=== PATIENT | female | born 1955 | race Caucasian/White ===

== ENCOUNTER 2017-10-20 17:46 | Emergency (ER) | payer OTHER, BC, SELFPAY ==
[2017-10-20 18:04] VITALS: BP 122/82; PULSE 82; RESP 16; TEMP 36.9; O2SAT 94
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
[2017-10-20 19:58] VITALS: BP 142/91; PULSE 72; RESP 16; O2SAT 97
== END 2017-10-20 19:58 | disposition home or self-care (01) ==
PROVIDERS: Emergency Provider Emergency Medicine; Family Provider Internal Medicine; PCP Internal Medicine
DX: S80.01XA Contusion of right knee, initial encounter (principal); S80.02XA Contusion of left knee, initial encounter; V49.9XXA Car occupant (driver) (passenger) injured in unspecified traffic accident, initial encounter
CPT/HCPCS: 99282

== ENCOUNTER → 2017-12-28 13:56 | Outpatient (CLI) | payer BC, SELFPAY ==
--- NOTE | 2017-12-28 14:05 | DI.MG.S_ITS ---
BILATERAL DIGITAL DIAGNOSTIC MAMMOGRAM 3D/2D: 12/28/2017 CLINICAL: Right Breast Lump. Baseline exam. No prior exams were available for comparison. There are scattered fibroglandular elements in both breasts. There are benign oil cysts in the left breast that correlate with palpable abnormalities. There are multiple oil cysts in the right breast superior lateral quadrant anterior depth. These likely correlate as palpated. There is a round mass in the left breast central to the nipple middle depth. No other significant masses or calcifications are seen in either breast. IMPRESSION: INCOMPLETE: NEEDS ADDITIONAL IMAGING EVALUATION The multiple oil cysts in the right breast superior lateral quadrant anterior depth are indeterminate. An ultrasound is recommended. The round mass in the left breast central to the nipple middle depth is indeterminate. An ultrasound is recommended. This exam was interpreted at Station ID: [id number]. NOTE: For mammograms, a report in lay terms will be sent to the patient. Approximately 15% of breast malignancies will not be visualized mammographically. In the management of a palpable breast mass, a negative mammogram must not discourage biopsy of a clinically suspicious lesion. Electronically Signed By: Tami gómez/:12/28/2017 14:52:48 letter sent: Additional Imaging Needed ACR BI-RADS Category 0: Incomplete [id number]
--- NOTE | 2017-12-28 14:05 | DI.US.S_ITS ---
ULTRASOUND OF RIGHT BREAST: 12/28/2017 CLINICAL: Palpable right breast lump. times 3. Comparison is made to exam dated: 12/28/2017 [facility]. Color flow and real-time ultrasound of the right breast were performed on the areas of interest. Zepeda scale images of the real-time examination were reviewed. There is 1.4 cm x 0.8 cm x 1 cm cyst in the right breast at 1 o'clock middle depth. There is internal echogenic avascular debris within this cyst. This correlates as palpated. Color flow imaging demonstrates that there is no vascularity present. There also is a 0.5 cm x 0.4 cm cyst in the right breast at 12 o'clock anterior depth. This cyst is anechoic with posterior acoustic enhancement. This correlates as palpated. Additionally, there is a 0.8 cm x 0.7 cm x 0.9 cm cyst in the right breast at 10 o'clock middle depth. This cyst is anechoic with posterior acoustic enhancement. This correlates as palpated. IMPRESSION: PROBABLY BENIGN The 1.4 cm x 0.8 cm x 1 cm cyst in the right breast at 1 o'clock middle depth is consistent with a complicated cyst and is probably benign. A follow-up ultrasound in 6 months is recommended to demonstrate stability. The 0.5 cm x 0.4 cm cyst in the right breast at 12 o'clock anterior depth is consistent with a simple cyst and is benign. The 0.8 cm x 0.7 cm x 0.9 cm cyst in the right breast at 10 o'clock middle depth is consistent with a simple cyst and is benign. This exam was interpreted at Station ID: [id number]. Electronically Signed By: Tami gómez/:12/28/2017 16:33:46 letter sent: Followup Recommended Ultrasound BI-RADS: 3 Probably benign
--- NOTE | 2017-12-28 15:47 | DI.US.S_ITS ---
ULTRASOUND OF LEFT BREAST: 12/28/2017 CLINICAL: Patient returns for additional imaging over a suspected mass in the left breast. Comparison is made [facility] Color flow ultrasound of the left breast was performed on the areas of interest. Zepeda scale images of the real-time examination were reviewed. There is a 1 cm x 0.7 cm x 0.9 cm oval cyst in the left breast at 3 o'clock middle depth. This oval cyst is anechoic with posterior acoustic enhancement. This correlates with mammography findings. Color flow imaging demonstrates that there is no vascularity present. IMPRESSION: BENIGN There is no sonographic evidence of malignancy. The 1 cm x 0.7 cm x 0.9 cm oval cyst in the left breast is consistent with a simple cyst and is benign. A 1 year screening mammogram is recommended. This exam was interpreted at Station ID: [id number]. Electronically Signed By: Tami Prince M.D. lk/:12/28/2017 16:44:18 letter sent: Normal Exam Ultrasound BI-RADS: 2 Benign
== END ==
PROVIDERS: Family Provider Internal Medicine; PCP Internal Medicine; Visit Provider Registered Nurse
DX: R92.8 Other abnormal and inconclusive findings on diagnostic imaging of breast (principal); N60.01 Solitary cyst of right breast; N60.02 Solitary cyst of left breast
CPT/HCPCS: 76642; 77066; G0279

== ENCOUNTER 2018-06-13 15:36 | Observation (INO) | payer BC, SELFPAY ==
[2018-06-13] VITALS (8 sets, daily range): BP systolic 143–159; BP diastolic 73–99; PULSE 58–71; RESP 12–22; TEMP 36.6–36.8; O2SAT 93–99; BMI 34.9
--- NOTE | 2018-06-13 15:45 | DI.RAD.S_ITS ---
PROCEDURE: XR CHEST 1V INDICATIONS: chest pain, soa TECHNIQUE: One view of the chest was acquired. COMPARISON: None. FINDINGS: Surgical changes and devices: None. Lungs and pleura: Lungs are clear. No pleural effusions or pneumothorax. Mediastinum: Mediastinal contours appear normal. Heart size is normal. Bones and chest wall: No suspicious bony lesions. Overlying soft tissues appear unremarkable. IMPRESSION: No acute process. Dictated by: Rangel Duncan M.D. on 06/13/2018 at 16:10 Approved by: Rangel Duncan M.D. on 06/13/2018 at 16:11
[2018-06-13 16:39] LABS: Add Manual Diff / Slide Review NO; Basophils Absolute Auto 0 /uL (0-100); Basophils Percent Auto 0.5 % (0-2); Eosinophils Absolute Auto 100 /uL (0-450); Eosinophils Percent Auto 2.3 % (2-4); Hematocrit 40.4 % (36-46); Hemoglobin 13.5 g/dL (12.0-16.0); Lymphocytes Absolute Auto 1400 /uL (1100-4500); Lymphocytes Percent Auto 24.7 % (25-40); Mean Corpuscular HGB Conc 33.3 % (30-36); Mean Corpuscular Hemoglobin 29.4 PG (26-34); Mean Corpuscular Volume 88.3 fL (80-100); Monocytes Absolute Auto 600 /uL (0-900); Monocytes Percent Auto 10.6 % (3-14); Neutrophils Absolute Auto 3500 /uL (1500-7000); Neutrophils Percent Auto 61.9 % (50-75); Platelet Count 243 X10^3/uL (150-400); Red Blood Cell Count 4.58 X10^6/uL (4.0-5.2); White Blood Cell Count 5.7 X10^3/uL (4.5-11.0)
[2018-06-13 16:47] LABS: Alanine Aminotransferase 15 IU/L (9-52); Albumin 4.3 g/dL (3.5-5.0); Albumin Globulin Ratio 1.3 (1.0-2.8); Alkaline Phosphatase 45 U/L (38-126); Aspartate Aminotransferase 23 IU/L (14-36); BUN Creatinine Ratio 17.8 (6-22); Bilirubin Total 0.3 mg/dL (0.2-1.3); Blood Urea Nitrogen 16 mg/dL (7-17); Calcium 9.4 mg/dL (8.4-10.2); Carbon Dioxide 28 mmol/L (22-32); Chloride 101 mmol/L (98-107); Creatine Kinase 62 U/L (30-135); Estimated Glomerular Filt Rate > 60.0 mL/min (>60); Globulin 3.2 g/dL (1.7-4.1); Glucose 92 mg/dL (80-110); HEMOLYSIS < 15 (0-50); Sodium 139 mmol/L (137-145); Total Protein 7.5 g/dL (6.3-8.2)
[2018-06-13 16:59] LABS: Troponin I < 0.012 ng/mL (0.01-0.034)
--- NOTE | 2018-06-13 17:41 | DI.US.S_ITS ---
PROCEDURE: US PERIPH VENOUS LOW EXTREM BI INDICATIONS: swelling legs, sometimes, lots of risk factors TECHNIQUE: Real-time imaging, as well as color and pulse Doppler interrogation, were performed of the deep veins of both legs from the inguinal ligament to the popliteal fossa. COMPARISON: [facility], US, US BREAST LT LIMITED, 12/28/2017, 15:29. [facility], , US BREAST RT LIMITED, 12/28/2017, 15:09. [facility], , PELVIC COMPLETE, 04/07/2012, 11:10. [facility], , ABDOMEN COMPLETE, 04/07/2012, 10:54. FINDINGS: Right: The common femoral, femoral and popliteal veins are normally compressible, and free of intraluminal thrombus. Color and pulse Doppler demonstrate intravascular flow. There is normal augmentation response to distal compression maneuver. Left: The common femoral, femoral and popliteal veins are normally compressible, and free of intraluminal thrombus. Color and pulse Doppler demonstrate intravascular flow. There is normal augmentation response to distal compression maneuver. IMPRESSION: No ultrasound evidence of deep venous thrombosis of the bilateral lower extremities. Dictated by: Curtis Conte M.D. on 06/13/2018 at 19:34 Approved by: Curtis Conte M.D. on 06/13/2018 at 19:35
--- NOTE | 2018-06-13 17:47 | ED.CHESTPAIN ---
HPI - Chest Pain General Chief Complaint: Chest Pain Stated Complaint: LEFT SIDED SHOULDER PAIN SOB Time Seen by Provider: 06/13/18 16:43 Source: patient and family (daughter on the phone) Mode of arrival: ambulatory Limitations: no limitations History of Present Illness HPI narrative: This is a 63-year-old female comes emergency department with complaint of shortness of breath patient states that she has been increasingly dyspneic since July. She states that initially it was just intermittent with exertion but has become more constant. Sometimes even when she is sitting she has also noticed some discomfort in her chest and left shoulder. She states that it has been going on for about 3 days. It has also been intermittent. She has been sort of tired. She states the discomforts sort of central and radiates towards her back. She has had a little bit of fever and cold feeling and sweatiness occasionally. She has been a little nauseated with these episodes. She denies any vomiting. She has not had any issues with bowel movements. She has known interstitial cystitis but no new changes. She did have some swelling in the right ankle which has a little bit of injury and she has been seeing PT. She states she has a bone spur on that foot. 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 She also takes quite a bit of pain medication. She states this is for interstitial cystitis. She is on estrogen. Patient has had a hysterectomy in the past she denies any other surgeries. Her mother at age 67 of coronary artery disease, her dad had issues with alcohol but he also had some blood clots at some point. She has 2 siblings but does not know much about her medical history other than her brother has issues with drug abuse. Her daughter has been diagnosed with protein C deficiency. Patient sees Dr. Tejeda for her primary care she does not smoke any tobacco. Patient has been asymptomatic without any chest pain/shortness of breath since arrival. Related Data Home Medications Medication Instructions Recorded Confirmed omeprazole 20 mg PO DAILY #0 07/31/12 06/13/18 Fish Oil 1 cap PO DAILY 06/13/18 06/13/18 Stool Softener 1 cap PO QAM 06/13/18 06/13/18 Vitamin B 1 tab PO DAILY 06/13/18 06/13/18 Vitamin D3 1 cap PO DAILY 06/13/18 06/13/18 [id number] 1 tab PO QAM 06/13/18 06/13/18 [Excedrin Extra Strength] estradiol [Estrace] 1 mg PO DAILY 06/13/18 06/13/18 multivitamin 1 tab PO DAILY 06/13/18 06/13/18 trazodone 200 mg PO BEDTIME 06/13/18 06/13/18 Previous Rx's Medication Instructions Recorded hydromorphone 4 mg tablet 8 mg PO Q6H #240 tab 05/31/18 citalopram 10 mg tablet 10 mg PO DAILY #90 tab 06/13/18 Allergies Allergy/AdvReac Type Severity Reaction Status Date / Time tramadol [TRAMADOL] Allergy Severe bad Verified 05/31/18 10:58 headaches ketorolac [KETOROLAC] Allergy Mild redness at Verified 05/31/18 10:58 injection site Review of Systems Review of Systems ROS Unobtainable: All systems reviewed & are unremarkable except as noted in HPI and below Constitutional Denies chills, Reports fatigue, Reports fever(s) (Feels hot), Denies lethargy, Reports malaise and Denies weakness ENT Ears, Nose, Mouth, and Throat: Denies nasal discharge Cardiovascular Reports chest pain, Reports chest pain with activity, Denies syncope, Denies rapid heart rate, Denies irregular heart rhythm, Reports leg edema, Denies lightheadedness, Reports radiating jaw, neck or arm pain, Denies palpitations, Reports dyspnea and Reports dyspnea on exertion Respiratory Denies change in phlegm color, Denies chest congestion, Denies cough, Denies hemoptysis, Denies pain on inspiration, Denies pain with cough, Reports dyspnea, Reports dyspnea on exertion and Denies wheezing Gastrointestinal Gastrointestinal: Denies abdominal pain, Denies change in bowel habits, Denies diarrhea, Reports nausea and Denies vomiting Genitourinary Reports other (interstitial cystitis) Neurologic Denies syncope and Denies weakness Endocrine Reports fatigue and Denies palpitations Allergic/Immunologic Denies wheezing [facility] Medical History Frequent UTI (Chronic 1991) Rosacea (Chronic ~1989) Stress headaches (Chronic) Tinnitus (Chronic 2015) Hearing loss (Resolved 2015) History of heavy periods (Resolved 1968) Interstitial cystitis (Resolved 1991) Oral cancer (Resolved 2015) Ovarian cyst (Resolved 1981) Painful menstrual periods (Resolved 1968) Plantar warts (Resolved 1974) Shoulder pain (Resolved 1999) Squamous cell carcinoma of head and neck (Resolved 2014) Surgical History Anesthesia (Resolved) Status post hysterectomy (Resolved 1993) Status post urological surgery (Resolved 2012) Family History (Updated 08/30/17 @ 16:59 by Lesley Frias) Father Hypertension Alcoholism Throat cancer Diabetes mellitus Mother Heart disease Hypertension Emphysema of lung Son Pneumonia Heroin addiction Social History Smoking Status: Former smoker Family History (Updated 08/30/17 @ 16:59 by Lesley Frias) Father Hypertension Alcoholism Throat cancer Diabetes mellitus Mother Heart disease Hypertension Emphysema of lung Son Pneumonia Heroin addiction Social History Smoking Status: Former smoker Exam Narrative Exam Narrative: GENERAL: Alert and oriented x three, well nourished, well appearing female in no acute distress. HEENT: Head normocephalic, atraumatic, EOMI, pupils reactive, face symmetric, moist mucous membranes NECK: Supple, full range of motion CARDIOVASCULAR: Regular rate and rhythm without murmurs, rubs or gallops. RESPIRATORY: Breath sounds equal bilaterally, no wheezes rales or rhonchi. ABDOMEN: Soft, nontender. Normoactive bowel sounds all 4 quadrants. No guarding or rebound, rigidity, no mass : No CVA tenderness EXTREMITIES: Normal range of motion, no clubbing or edema. Neurovascularly intact NEUROLOGICAL: Cranial nerves II through XII grossly intact. Moving all extremities SKIN: Warm, dry, no petechiae, no rashes or lesions. Initial Vital Signs Initial Vital Signs: Vital Signs Temperature 97.9 F 06/13/18 15:40 Pulse Rate 62 06/13/18 15:40 Respiratory Rate 22 06/13/18 15:40 Blood Pressure 149/94 H 06/13/18 15:40 Pulse Oximetry 96 06/13/18 15:40 Scores HEART Score Heart Score history: Moderately Suspicious Heart Score EKG: Non-Specific repolarization disturbance Heart Score Age: 45-64 years old Heart Score risk factors: 1-2 risk factors Heart Score troponin: < or = to normal limit Heart Score Total: 4 Course Orders Ordered: ED Orders 06/13/18 15:45 XR chest 1V Stat 06/13/18 15:47 EKG-12 Lead Stat 06/13/18 16:15 Complete Blood Count AUTO DIFF Stat Comprehensive Metabolic Panel Stat D Dimer Stat Partial Thromboplastin Time Stat Prothrombin Time INR Stat Troponin & CK Cardiac Panel Stat 06/13/18 17:41 US periph venous low extrem bi Stat Discontinued Medications Enoxaparin Sodium (Lovenox) 80 mg 1 mg/kg (80 mg) SUBCUT NOW ONE Stop: 06/13/18 19:08 Last Admin: 06/13/18 19:27 Dose: 80 mg Vital Signs - 8 hr 06/13/18 15:40 06/13/18 16:15 06/13/18 17:00 Temperature 97.9 F Pulse Rate 62 58 L 60 Respiratory Rate 22 12 12 Blood Pressure 149/94 H Blood Pressure [Right Arm] 153/73 H 144/79 H Pulse Oximetry 96 93 95 06/13/18 18:00 Temperature Pulse Rate 68 Respiratory Rate 20 Blood Pressure Blood Pressure [Right Arm] 148/82 H Pulse Oximetry 99 MDM - Chest Pain Lab Data Attestation: I reviewed the patient's lab results. Result diagrams: 06/13/18 16:15 06/13/18 16:15 Lab Results 06/13/18 06/13/18 06/13/18 Range/Units 16:15 16:15 16:15 WBC 5.7 (4.5-11.0) X10^3/uL RBC 4.58 (4.0-5.2) X10^6/uL Hgb 13.5 (12.0-16.0) g/dL Hct 40.4 (36-46) % MCV 88.3 (80-100) fL MCH 29.4 (26-34) PG MCHC 33.3 (30-36) % RDW 13.0 (11.6-14.8) % Plt Count 243 (150-400) X10^3/uL Neut % (Auto) 61.9 (50-75) % Lymph % (Auto) 24.7 L (25-40) % Troup % (Auto) 10.6 (3-14) % Eos % (Auto) 2.3 (2-4) % Baso % (Auto) 0.5 (0-2) % Neut # (Auto) 3500 (7056-9830) /uL Lymph # (Auto) 1400 (3943-9685) /uL Troup # (Auto) 600 (0-900) /uL Eos # (Auto) 100 (0-450) /uL Baso # (Auto) 0 (0-100) /uL PT (10.1-12.7) SECONDS INR (0.9-1.3) APTT (26.4-36.2) SECONDS D-Dimer 221 (<230) ng/mL Sodium 139 (137-145) mmol/L Potassium 4.0 (3.4-5.1) mmol/L Chloride 101 (98-107) mmol/L Carbon Dioxide 28 (22-32) mmol/L BUN 16 (7-17) mg/dL Creatinine 0.90 (0.52-1.04) mg/dL Estimated GFR > 60.0 (>60) mL/min BUN/Creatinine Ratio 17.8 (6-22) Glucose 92 (80-110) mg/dL Calcium 9.4 (8.4-10.2) mg/dL Total Bilirubin 0.3 (0.2-1.3) mg/dL AST 23 (14-36) IU/L ALT 15 (9-52) IU/L Alkaline Phosphatase 45 (38-126) U/L Total Creatine Kinase 62 (30-135) U/L CK-MB (CK-2) TNP CK-MB (CK-2) Rel Index TNP Troponin I < 0.012 (0.01-0.034) ng/mL Total Protein 7.5 (6.3-8.2) g/dL Albumin 4.3 (3.5-5.0) g/dL Globulin 3.2 (1.7-4.1) g/dL Albumin/Globulin Ratio 1.3 (1.0-2.8) 06/13/18 Range/Units 16:15 WBC (4.5-11.0) X10^3/uL RBC (4.0-5.2) X10^6/uL Hgb (12.0-16.0) g/dL Hct (36-46) % MCV (80-100) fL MCH (26-34) PG MCHC (30-36) % RDW (11.6-14.8) % Plt Count (150-400) X10^3/uL Neut % (Auto) (50-75) % Lymph % (Auto) (25-40) % Troup % (Auto) (3-14) % Eos % (Auto) (2-4) % Baso % (Auto) (0-2) % Neut # (Auto) (2316-7402) /uL Lymph # (Auto) (7223-2781) /uL Troup # (Auto) (0-900) /uL Eos # (Auto) (0-450) /uL Baso # (Auto) (0-100) /uL PT 11.5 (10.1-12.7) SECONDS INR 1.0 (0.9-1.3) APTT 32 (26.4-36.2) SECONDS D-Dimer (<230) ng/mL Sodium (137-145) mmol/L Potassium (3.4-5.1) mmol/L Chloride (98-107) mmol/L Carbon Dioxide (22-32) mmol/L BUN (7-17) mg/dL Creatinine (0.52-1.04) mg/dL Estimated GFR (>60) mL/min BUN/Creatinine Ratio (6-22) Glucose (80-110) mg/dL Calcium (8.4-10.2) mg/dL Total Bilirubin (0.2-1.3) mg/dL AST (14-36) IU/L ALT (9-52) IU/L Alkaline Phosphatase (38-126) U/L Total Creatine Kinase (30-135) U/L CK-MB (CK-2) CK-MB (CK-2) Rel Index Troponin I (0.01-0.034) ng/mL Total Protein (6.3-8.2) g/dL Albumin (3.5-5.0) g/dL Globulin (1.7-4.1) g/dL Albumin/Globulin Ratio (1.0-2.8) Imaging Data Chest x-ray: Radiologist's impression: Oliver Shay J 63 F [address] [address] XRay Report Signed Patient: Oliver Shay#: [id number] : 8Acct:[id number] Age/Sex: 63 / FDate of Service: 06/13/18 Loc: ED Accession Number: [id number] Procedure: XR chest 1V Ordering Provider: Nora Alas D.O. PROCEDURE: XR CHEST 1V INDICATIONS: chest pain, soa TECHNIQUE: One view of the chest was acquired. COMPARISON: None. FINDINGS: Surgical changes and devices: None. Lungs and pleura: Lungs are clear. No pleural effusions or pneumothorax. Mediastinum: Mediastinal contours appear normal. Heart size is normal. Bones and chest wall: No suspicious bony lesions. Overlying soft tissues appear unremarkable. IMPRESSION: No acute process. Dictated by: Rangel Duncan M.D. on 06/13/2018 at 16:10 Approved by: Rangel Duncan M.D. on 06/13/2018 at 16:11 MDM Narrative Medical decision making narrative: Discussed with patient she does have an elevated heart score, she also has some risk factors for PE even though her D-dimer ultrasound of her lower extremities are negative. I discussed with patient about observation for chest pain, serial enzymes and potentially stress test. We also discussed going ahead and treating her for potential blood clot although this is less likely with her negative D-dimer and ultrasound of her lower extremities. Patient is open to this. We did discuss that hopefully CT scan would be available tomorrow. I spoke with the Sheila Contreras the [employer]NAGER, she is not comfortable treating with Lovenox and waiting for potential PE scan tomorrow and would like us to ship her to [facility] and return for imaging. We did discuss patient has been stable except for 1 episode of hypoxia in the department. She is happy to accept the patient after PE scan is performed. We did discuss I have elected to treat her with Lovenox at this time. Discussed with patient she is comfortable with this plan. I also spoke with Dr. Funes who is the night physician who would be present when patient returns and updated him on the plan as well as the nurse practitioner excepting him after PE scan is performed. We did discuss if she had a massive PE or saddle embolus then we may need to change direction and have patient treated elsewhere. Discharge Plan Departure Patient Disposition: Admitted as Observation Clinical Impression: Atypical chest pain, Dyspnea Referrals: Israel Dodge MD [Primary Care Provider] -
[2018-06-13 17:59] LABS: Prothrombin Time 11.5 SECONDS (10.1-12.7)
[2018-06-13 18:02] LABS: D Dimer 221 ng/mL (<230); PTT Partial Thromboplastin Tim 32 SECONDS (26.4-36.2)
[2018-06-13] MEDS: ENOXAPARIN 80 MG/0.8 ML SYRINGE SUBCUT (19:27)
--- NOTE | 2018-06-13 20:46 | PC.NURSE ---
Addendum entered by Yoko Hall R.N. 06/13/18 22:24: 2224 Patient back from [facility] with ambulance crew. Provider aware. Original Note: [facility] here to transport patient to [facility] for CT angio of chest. Gave report to VANDANA Sharpe from ambulance. Pt left department at 2049.
--- NOTE | 2018-06-13 21:03 | P.EN_ITS ---
Date Patient Seen: 06/13/18 Time Patient Seen: 19:01 Returning a call to the ED on 06/13/2018 at 7:[address] Alas in regard to patient Oliver Handley. It is being communicated by the ED physician the patient presented to the ED with shortness of breath. Shortness of breath set to be intermittent, with exertion and sometimes at rest as well. Symptoms initially noted in July of 2017, progressively worsening. In the past 3 days patient developed left shoulder discomfort. There is radiation to the back. Associated symptoms include nausea, but no vomiting. Physician reported that patient is receiving therapy for a bone spur in her left lower extremity. Also noted a history of squamous cell carcinoma in the left aspect of the neck for which she has received chemo and radiation in the past. No known history of high blood pressure, diabetes, depression, obesity or tobacco dependence. Patient noted to have underlying dyslipidemia. There is family history of heart disease (mother). Noted to have 2 siblings, 1 with polysubstance abuse problem and the other with little known history by the patient herself. Patient noted to be on estrogen and may have potentially had a remote history of thrombosis. This is being noted by the patient as blood clot in her stomach, but the physician noted that she was not entirely clear what patient was referring to. Labs noted to be unremarkable. Troponin was negative. EKG was negative. And chest x-ray was negative. Patient is set to be hemodynamically stable. Patient's daughter was noted to have protein C deficiency. Request is being made for admission for chest pain observation and potentially PE. I am being told that the CTA was not done in the ED as the imaging machine is not an operational order. It is expected to be up and running at noon on 06/14/2018. Concern expressed in regard to excepting patient without availability of proper imaging at hand and a stipulation that the the imaging machine will be up and running in 19 hours from now. I have discussed patient's HEART score w/ the physician, which at time of the conversation appeared to be elevated at least 2+ in lieu of her RF ie. age and risk factors. Despite normal EKG and normal initial troponin. Immediate acceptatnce of the patient was declined. Admission for further ob servation is conditional, ie patient will need CTA imaging of the chest to r/o PE. I am in agreement with the ED physician that patient does need to be admitted. She does have an elevated heart score and enough symptoms to warrant further work-up. However, risk of admission caries a significantly higher risk on patient mortality if new symptoms were to emerge at time of observation and patient were to experience a sudden hemodynamic collapse, given PE as a differential diagnosis. In absence of proper imaging there is a concern for significant delay in diagnosis and proper treatment. I have requested imaging to be done prior to patient being admitted to acute care unit for further observation. Physician noted an option of having patient transferred to [facility] for imaging and then return back for admission, this was accepted and agreed upon option. ED physician brought up prophylactic treatment of the patient with Lovenox. I have had no further, specific input to this decision-making step and left this decision up to the ED physician as I have not established a direct relationship with the patient and have not had an opportunity to evaluate the patient [id number] or review her records in detail. ED physician noted that she will proceed to anti-coagulate patient with Lovenox.
--- NOTE | 2018-06-13 22:42 | PM.HP.1 ---
History of Present Illness Date Patient Seen: 06/13/18 Time Patient Seen: 23:04 Chief complaint: LEFT SIDED SHOULDER PAIN SOB Narrative: The patient is an 83-year-old female with PMHx outlined below... PMHx: prior tobacco dependence (2-2.5 ppd for 18 yrs, quit 1991), urinary frequency (s/p InterStim implant), chronic interstitial cystitis, SCC of head & neck (dx 2014, s/p chemoradiation), oropharyngeal cancer (2015), left breast cyst (w/ no evidence of malignancy as of 12/28/2017, pending 1 yr f/u), chronic pain syndrome, fibromyalgia, opioid dependence, DM 2T (A1C 6.1 05/2017), HLD, depression, and insomnia. PSHx: hysterectomy w/ unilateral salpingo-oophorectomy (1993), InterStim system implant The patient presented to the ED on 06/13/2018 in the 1500 hour out of concern for left shoulder pain and shortness of breath. Symptoms noted 3 days prior to ED presentation (06/10/18). Associated symptoms include subjective report of increased temperature, profuse sweating, chest heaviness, swollen lymph nodes, joint pain (notes to be worse from baseline), nausea x3 days (no vomiting or diarrhea), diminished appetite x1 week, unintentional weight loss of 28 lbs since Feb 2018, fatigue and unsteady gait. In the past 2 weeks a nodule in the right breast. Recently experiencing visual disturbances from time to time several visual disturbances, which she describes as a flick of a while light. Shoulder discomfort is localized to the shoulder, characterized as constant with sensation of numbing. There is no radiation to the elbow or fingers. What patient means by shortness of breath is the sensation of not having enough air. She notes need to stop, rest, and take deep breaths. Patient notes shortness of breath since July of 2017, however in the past three days has been more frequent. Symptoms occur at random times and not associated necessarily associated with exertion. Associated symptoms include chest heaviness and profuse diaphoresis throughout the day for the past 3 days. Denies cough, upper respiratory symptoms and chest congestion. 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 Denies hemoptysis and syncopal events. Patient is known to have prior history of tobacco use (2-2.5 ppd x18 yrs, quit in 1991). She does not carry a diagnosis of COPD or MIRIAM. No prior evaluation for sleep apnea. Denies cough, wheezing, pleurisy, orthopnea, ED Work-Up / Course On triage Temp 97.9F BP 149/94 mmHg HR 62 RR 22 SpO2 96% on RA. Noted to be in SR on front desk coordinator w/ HR in the 70s. CXR not indicative of acute cardiopulmonary findings. CTA Chest... negative (final read pending) Trop < 0.012 (06/13, 1614) D-Dimer < 230 ng/mL WBC 5.7 Hgb 13.5 Hct 40.4 Plt 243 PT 11.5 INR 1.0 aPTT 32 Na 139 K 4.0 Mg Cl 101 Ca 9.4 Alb 4.3 Glu 92 CO2 28 BUN 16 Cr 0.9 T. Bili 0.3 AST 23 ALT 15 Alk Phos 45 Patient History Medical History Frequent UTI (Chronic 1991) Rosacea (Chronic ~1989) Stress headaches (Chronic) Tinnitus (Chronic 2015) Hearing loss (Resolved 2015) History of heavy periods (Resolved 1968) Interstitial cystitis (Resolved 1991) Oral cancer (Resolved 2015) Ovarian cyst (Resolved 1981) Painful menstrual periods (Resolved 1968) Plantar warts (Resolved 1974) Shoulder pain (Resolved 1999) Squamous cell carcinoma of head and neck (Resolved 2014) Surgical History (Updated 06/14/18 @ 03:37 by MARICRUZ Dos Santos) Anesthesia (Resolved) Status post hysterectomy (Resolved 1993) Status post urological surgery (Resolved 2012) Family History (Updated 06/14/18 @ 02:33 by MARICRUZ Dos Santos) Father Hypertension Alcoholism Throat cancer Diabetes mellitus Mother Heart disease Hypertension Emphysema of lung Cancer Son Pneumonia Heroin addiction Social History household members: spouse and children Smoking Status: Former smoker Family & Social History Family History (Updated 06/14/18 @ 02:33 by MARICRUZ Dos Santos) Father Hypertension Alcoholism Throat cancer Diabetes mellitus Mother Heart disease Hypertension Emphysema of lung Cancer Son Pneumonia Heroin addiction Tobacco & Substance use: Smoking Status Former smoker, 2 to 2.5 ppd, for 18 years, quit in 1991 alcohol intake frequency Denies current use of alcohol, however did drink in the past socially Substance Use Type Denies current or prior use. Reports using CBD oil for the first time in the past week. Meds Home Medications Medication Instructions Recorded Confirmed Type omeprazole 20 mg PO DAILY #0 07/31/12 06/13/18 History hydromorphone 4 mg tablet 8 mg PO Q6H #240 tab 05/31/18 06/13/18 Rx Fish Oil 1 cap PO DAILY 06/13/18 06/13/18 History Stool Softener 1 cap PO QAM 06/13/18 06/13/18 History Vitamin B 1 tab PO DAILY 06/13/18 06/13/18 History Vitamin D3 1 cap PO DAILY 06/13/18 06/13/18 History gqekzkg-[id number]-rvyvtfdq 1 tab PO QAM 06/13/18 06/13/18 History [Excedrin Extra Strength] citalopram 10 mg tablet 10 mg PO DAILY #90 tab 06/13/18 06/13/18 Rx estradiol [Estrace] 1 mg PO DAILY 06/13/18 06/13/18 History multivitamin 1 tab PO DAILY 06/13/18 06/13/18 History trazodone 200 mg PO BEDTIME 06/13/18 06/13/18 History Allergies Allergy/AdvReac Type Severity Reaction Status Date / Time tramadol [TRAMADOL] Allergy Severe bad Verified 05/31/18 10:58 headaches ketorolac [KETOROLAC] Allergy Mild redness at Verified 05/31/18 10:58 injection site Review of Systems Review of Systems All systems reviewed & are unremarkable except as noted in HPI and below Exam Vital Signs (past 8 hours): - 06/13/18 15:40 06/13/18 16:15 06/13/18 17:00 Temperature 97.9 F Pulse Rate 62 58 L 60 Respiratory Rate 22 12 12 Blood Pressure 149/94 H Blood Pressure [Right Arm] 153/73 H 144/79 H Pulse Oximetry 96 93 95 06/13/18 18:00 06/13/18 19:31 06/13/18 20:00 Temperature Pulse Rate 68 71 70 Respiratory Rate 20 16 22 Blood Pressure Blood Pressure [Right Arm] 148/82 H 159/85 H Pulse Oximetry 99 97 98 06/13/18 22:29 Temperature Pulse Rate 69 Respiratory Rate 18 Blood Pressure Blood Pressure [Right Arm] 143/90 H Pulse Oximetry 97 Oxygen Delivery Method Room Air Narrative Exam Narrative: Constitutional: cooperative, no acute distress Head: NC, AC EENT: Sclerae anicteric, gaze conjugate, external ears normal, external nose normal, moist mucous membranes, oropharynx w/o exudated or overt lesions Neck: + anterior cervical lymphadenopathy (R > L, tender to palpation), Focal tenderness in the left supraclavicular and left posterior cervical area, but no overt enlargement palpated ROM intact, no pain w/ rotation Breast: Right breast nodule / lump, hard, and tender to palpation; tenderness of the axillary lymphnodes (anterior vs posterior) w/ deep palpation Pulm: no dyspnea or tachypnea at rest, on room air w/ SpO2 at 100%, able to speak in full sentences, no discomfort w/ palpation Cardio: S1S2, no murmur or rub GI / : central obesity, abdomen NT and ND, normoactive BS, no sprapubic tenderness Back : no CVA tenderness Skin: no overt bruising or ecchymosis, no open lesions Extremities: LUE slightly weaker than right, left hand health equipment servicer also slightly weaker than right, ROM equal bi-pedal pulses palpable, 1+, no edema b/l, no joint effusion of knee or ankle Psych: cooperative, normal mood and affect, good historian Neuro: AOx 3 slight dysmetria with [id number] (left) and slightly weaker hand-health equipment servicer and strength (left), however no arm drift No facial asymmetry, no facial palsy, no aphasia or dysarthria, sensation intact, no tremor, no motor deficits NIHSS: 1 (left limb ataxia, aoskyo-gv-[id number] coordination on the left is significantly slower and not as precise as on the right) Objective Labs Result Diagrams: 06/13/18 16:15 06/13/18 16:15 Labs: Laboratory Results - last 24 hr 06/13/18 06/13/18 06/13/18 16:15 16:15 16:15 WBC 5.7 RBC 4.58 Hgb 13.5 Hct 40.4 MCV 88.3 MCH 29.4 MCHC 33.3 RDW 13.0 Plt Count 243 Neut % (Auto) 61.9 Lymph % (Auto) 24.7 L Tripp % (Auto) 10.6 Eos % (Auto) 2.3 Baso % (Auto) 0.5 Neut # (Auto) 3500 Lymph # (Auto) 1400 Tripp # (Auto) 600 Eos # (Auto) 100 Baso # (Auto) 0 PT INR APTT D-Dimer 221 Sodium 139 Potassium 4.0 Chloride 101 Carbon Dioxide 28 BUN 16 Creatinine 0.90 Estimated GFR > 60.0 BUN/Creatinine Ratio 17.8 Glucose 92 Calcium 9.4 Total Bilirubin 0.3 AST 23 ALT 15 Alkaline Phosphatase 45 Total Creatine Kinase 62 CK-MB (CK-2) TNP CK-MB (CK-2) Rel Index TNP Troponin I < 0.012 Total Protein 7.5 Albumin 4.3 Globulin 3.2 Albumin/Globulin Ratio 1.3 06/13/18 16:15 WBC RBC Hgb Hct MCV MCH MCHC RDW Plt Count Neut % (Auto) Lymph % (Auto) Tripp % (Auto) Eos % (Auto) Baso % (Auto) Neut # (Auto) Lymph # (Auto) Tripp # (Auto) Eos # (Auto) Baso # (Auto) PT 11.5 INR 1.0 APTT 32 D-Dimer Sodium Potassium Chloride Carbon Dioxide BUN Creatinine Estimated GFR BUN/Creatinine Ratio Glucose Calcium Total Bilirubin AST ALT Alkaline Phosphatase Total Creatine Kinase CK-MB (CK-2) CK-MB (CK-2) Rel Index Troponin I Total Protein Albumin Globulin Albumin/Globulin Ratio Assessment & Plan Assessment & Plan narrative: Patient admitted under observation status for atypical chest pain and exertional dyspnea. Atypical chest pain, acute, present on admission, active EKG, 06/13/18 at 15:47, SB (v-rate 57), non-specific T-wave abnormality. Presenting Trop < 0.012 (06/13/18 at 16:15). CXR unrevealing of acute cardiopulmonary process. No electrolyte or metabolic abnormalities. Hgb 13.5, stable, w/o evidence of anemia. HEART Score: 4 (moderate). History (1+, moderately suspicious), EKG (0, normal), Age (1+, 45-64), RF 2+, >/3 HLD, DM, + FHx, smoking (but not current or w/in past 3 months) Symptoms do not appear consistent w/ cardiac etiology - Telemetry monitoring x24 hours, then re-evaluate and consider discontinuing - Trend troponins - Risk Stratify: FLP, A1C in am - Consider stress test, will defer decision to am rounding team. Recommend priority to be given for stroke imaging and echo - Make patient NPO at 2 am, if am team decides to proceed with a stress test - Takes excedrin extra strength at home, which has 250 mg of ASA, once to twice daily, hold while inpatient - Start on ASA 81 mg QD Exertional Dyspnea, sub-acute, present on admission, active SpO2 100% on RA. No notation of hyperinflation on CXR. No evidence of hypervolemia. No dyspnea or tachypnea at rest, on room air w/ SpO2 at 100%, able to speak in full sentences, no chest discomfort w/ palpation. No orthopnea, cough, hemoptysis, or pleurisy. DDx: PE vs DVT vs viral illness vs ACS vs cardiac arrhythmia - Echo w/ bubble study - Concern for malignant pathology, in the absence of aforementioned symptoms and in the presence of lymphadenopathy, fatigue, and weight loss - CTA chest negative for PE (per verbal report), final read pending - Check viral respiratory panel - Consider BLE U/S - BNP Shoulder Pain, Left, acute, present on admission, active NIHSS: 1 (left limb ataxia, [id number] coordination on the left is significantly slower and not as precise as on the right) LUE slightly weaker than right, left hand health equipment servicer also slightly weaker than right, ROM equal + anterior cervical lymphadenopathy (R > L, tender to palpation), focal tenderness in the left supraclavicular and left posterior cervical area, but no overt enlargement palpated; new hard, tender right breast nodule Two concerns at hand, (1) potential recurrence of the malignancy or new malignancy (breast)? metastasis? and (2) stroke, 2/2 atherosclerosis or in the setting of malignancy FHx of gynecologic cancer (mother) - Neuro checks Q4H - Stroke imaging in am, symptom onset on 06/10/18 - Needs a mammogram, will need to inquire in am if done in the inpatient setting Left breast mass, acute, present on admission, active Initially noted by patient 2 weeks ago, with associated symptoms lymphadenopathy, weight loss, fatigue, and shortness of breath Concern for breast cancer. DDx: Fibrocystic breast disease, fibroadenoma. CXR without notation for pleural effusion. LFTs WNL. - needs a mammogram, will inquire in am if available in the inpatient setting Elevated BP w/o prior diagnosis of HTN, acute, present on admission, active - Trend BP, goal SBP < 160 mmHg and DBP < 90 mmHg while inpatient - Review trend in am, if continues to be elevated, then may need to consider starting on an anti-hypertensive agent Hyperlipidemia, chronic, present on admission, active, uncontrolled Most recent FLP available (06/01/2017), Chol 260 Trig 176, LDL 151, HDL 74. Not on a statin. - FLP - Goal LDL < 70 - Start on atorvastatin 40 mg QHS Headache, chronic condition, active No headache at time of the exam. Patient reports history of chronic headaches, describes them to be moderate to severe nature and constant. Character is to have tension headache type qualities. Patient denies having migraines. Recently reports having visual disturbances in the form of a visual aura with brief sensory disturbances (new for patient). However, the patient herself states that at time of such events she has not experienced a headache. Typically headache is abated it with extra-strength Excedrin. Concern / DDx: carotid artery disease (RF: prior significant history of tobacco use, DM, obesity, HLD) VS. Migraine w/ aura VS. acute CVA - CT of the head and MR imaging, which should include MRI/MRA of the neck DM 2T, without complications, chronic condition, present on admission, controlled / stable A1c of 6% (2016) and 6.1% (05/2017). Diet controlled. Not on any oral anti-glycemics or insulin. FHx of DM. - check A1C - Trend glucose level w/ am lab, if elevated (ie > 200) in the setting of acute illness then will consider further acute treatment Interstitial cystitis, chronic, present on admission, active / stable With associated symptoms of urinary frequency and urgency - managed with InterStim system implant Chronic pain syndrome, present on admission, active Pain associated with interstitial cystitis. Also, notes being told of having fibromyalgia as a complication of interstitial cystitis, however reports declining treatment with Lyrica in the past. Baseline pain level / tolerance is /10. IMMIGRATION COORDINATOR on dilaudid 8 mg Q6H. - Resume IMMIGRATION COORDINATOR regimen of dilaudid Opioid dependence, chronic, present on admission, active / stable - does not appear to exhibit opioid seeking or opioid abuse tendencies Insomnia, chronic condition, present on admission, active / stable IMMIGRATION COORDINATOR on trazodone 200 mg QHS. Typically, lower dose of trazodone is utilized to treat insomnia; however, dose of up to 200 mg in patients with substance use disorder is permissible. Pateint requested to have her dose decreased, as she is trying to wean herself off the trazodone. - Resume IMMIGRATION COORDINATOR regimen of trazodone at 100 mg QHS H/O Head & Neck cancer / oropharyngeal cancer, known to be in remission s/p chemoradiation therapy. Follows w/ Dr. Dayday Berg. Full Code. Surrogate decision maker is . VTE prophylaxis: SCDs and prophylactic dose lovenox
--- NOTE | 2018-06-13 22:45 | P.HP_ITS ---
History of Present Illness Date Patient Seen: 06/13/18 Time Patient Seen: 23:04 Chief complaint: LEFT SIDED SHOULDER PAIN SOB Narrative: The patient is an 83-year-old female with PMHx outlined below... PMHx: prior tobacco dependence (2-2.5 ppd for 18 yrs, quit 1991), urinary freq uency (s/p InterStim implant), chronic interstitial cystitis, SCC of head & neck (dx 2014, s/p chemoradiation), oropharyngeal cancer (2015), left breast cyst (w/ no evidence of malignancy as of 12/28/2017, pending 1 yr f/u), chronic pain syndrome, fibromyalgia, opioid dependence, DM 2T (A1C 6.1 05/2017), HLD, depression, and insomnia. PSHx: hysterectomy w/ unilateral salpingo-oophorectomy (1993), InterStim system implant The patient presented to the ED on 06/13/2018 in the 1500 hour out of concern for left shoulder pain and shortness of breath. Symptoms noted 3 days prior to ED presentation (06/10/18). Associated symptoms include subjective report of increased temperature, profuse sweating, chest heaviness, swollen lymph nodes, joint pain (notes to be worse from baseline), nausea x3 days (no vomiting or diarrhea), diminished appetite x1 week, unintentional weight loss of 28 lbs since Feb 2018, fatigue and unsteady gait. In the past 2 weeks a nodule in the right breast. Recently experiencing visual disturbances from time to time several visual disturbances, which she describes as a flick of a while light. Shoulder discomfort is localized to the shoulder, characterized as constant with sensation of numbing. There is no radiation to the elbow or fingers. What patient means by shortness of breath is the sensation of not having enough air. She notes need to stop, rest, and take deep breaths. Patient notes shortness of breath since July of 2017, however in the past three days has been more frequent. Symptoms occur at random times and not associated necessarily associated with exertion. Associated symptoms include chest heaviness and profuse diaphoresis throughout the day for the past 3 days. Denies cough, upper respiratory symptoms and chest congestion. 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 Denies hemoptysis and syncopal events. Patient is known to have prior history of tobacco use (2-2.5 ppd x18 yrs, quit in 1991). She does not carry a diagnosis of COPD or MIRIAM. No prior evaluation for sleep apnea. Denies cough, wheezing, pleurisy, orthopnea, ED Work-Up / Course On triage Temp 97.9F BP 149/94 mmHg HR 62 RR 22 SpO2 96% on RA. Noted to be in SR on laboratory monitor w/ HR in the 70s. CXR not indicative of acute cardiopulmonary findings. CTA Chest... negative (final read pending) Trop < 0.012 (06/13, 161) D-Dimer < 230 ng/mL WBC 5.7 Hgb 13.5 Hct 40.4 Plt 243 PT 11.5 INR 1.0 aPTT 32 Na 139 K 4.0 Mg Cl 101 Ca 9.4 Alb 4.3 Glu 92 CO2 28 BUN 16 Cr 0.9 T. Bili 0.3 AST 23 ALT 15 Alk Phos 45 Patient History Medical History Frequent UTI (Chronic 1991) Rosacea (Chronic ~1989) Stress headaches (Chronic) Tinnitus (Chronic 2015) Hearing loss (Resolved 2015) History of heavy periods (Resolved 1968) Interstitial cystitis (Resolved 1991) Oral cancer (Resolved 2015) Ovarian cyst (Resolved 1981) Painful menstrual periods (Resolved 1968) Plantar warts (Resolved 1974) Shoulder pain (Resolved 1999) Squamous cell carcinoma of head and neck (Resolved 2014) Surgical History (Updated 06/14/18 @ 03:37 by MARICRUZ Dos Santos) Anesthesia (Resolved) Status post hysterectomy (Resolved 1993) Status post urological surgery (Resolved 2012) Family History (Updated 06/14/18 @ 02:33 by MARICRUZ Dos Santos) Father Hypertension Alcoholism Throat cancer Diabetes mellitus Mother Heart disease Hypertension Emphysema of lung Cancer Son Pneumonia Heroin addiction Social History household members: spouse and children Smoking Status: Former smoker Family & Social History Family History (Updated 06/14/18 @ 02:33 by MARICRUZ Dos Santos) Father Hypertension Alcoholism Throat cancer Diabetes mellitus Mother Heart disease Hypertension Emphysema of lung Cancer Son Pneumonia Heroin addiction Tobacco & Substance use: Smoking Status Former smoker, 2 to 2.5 ppd, for 18 years, quit in 1991 alcohol intake frequency Denies current use of alcohol, however did drink in the past socially Substance Use Type Denies current or prior use. Reports using CBD oil for the first time in the past week. Meds Home Medications Medication Instructions Recorded Confirmed Type omeprazole 20 mg PO DAILY #0 07/31/12 06/13/18 History hydromorphone 4 mg tablet 8 mg PO Q6H #240 tab 05/31/18 06/13/18 Rx Fish Oil 1 cap PO DAILY 06/13/18 06/13/18 History Stool Softener 1 cap PO QAM 06/13/18 06/13/18 History Vitamin B 1 tab PO DAILY 06/13/18 06/13/18 History Vitamin D3 1 cap PO DAILY 06/13/18 06/13/18 History lsriuha-dunyhmekyucnn-[id number] 1 tab PO QAM 06/13/18 06/13/18 History [Excedrin Extra Strength] citalopram 10 mg tablet 10 mg PO DAILY #90 tab 06/13/18 06/13/18 Rx estradiol [Estrace] 1 mg PO DAILY 06/13/18 06/13/18 History multivitamin 1 tab PO DAILY 06/13/18 06/13/18 History trazodone 200 mg PO BEDTIME 06/13/18 06/13/18 History Allergies Allergy/AdvReac Type Severity Reaction Status Date / Time tramadol [TRAMADOL] Allergy Severe bad Verified 05/31/18 10:58 headaches ketorolac [KETOROLAC] Allergy Mild redness at Verified 05/31/18 10:58 injection site Review of Systems Review of Systems All systems reviewed & are unremarkable except as noted in HPI and below Exam Vital Signs (past 8 hours): - 06/13/18 15:40 06/13/18 16:15 06/13/18 17:00 Temperature 97.9 F Pulse Rate 62 58 L 60 Respiratory Rate 22 12 12 Blood Pressure 149/94 H Blood Pressure [Right Arm] 153/73 H 144/79 H Pulse Oximetry 96 93 95 06/13/18 18:00 06/13/18 19:31 06/13/18 20:00 Temperature Pulse Rate 68 71 70 Respiratory Rate 20 16 22 Blood Pressure Blood Pressure [Right Arm] 148/82 H 159/85 H Pulse Oximetry 99 97 98 06/13/18 22:29 Temperature Pulse Rate 69 Respiratory Rate 18 Blood Pressure Blood Pressure [Right Arm] 143/90 H Pulse Oximetry 97 Oxygen Delivery Method Room Air Narrative Exam Narrative: Constitutional: cooperative, no acute distress Head: NC, AC EENT: Sclerae anicteric, gaze conjugate, external ears normal, external nose normal, moist mucous membranes, oropharynx w/o exudated or overt lesions Neck: + anterior cervical lymphadenopathy (R > L, tender to palpation), Focal tenderness in the left supraclavicular and left posterior cervical area, but no overt enlargement palpated ROM intact, no pain w/ rotation Breast: Right breast nodule / lump, hard, and tender to palpation; tenderness of the axillary lymphnodes (anterior vs posterior) w/ deep palpation Pulm: no dyspnea or tachypnea at rest, on room air w/ SpO2 at 100%, able to speak in full sentences, no discomfort w/ palpation Cardio: S1S2, no murmur or rub GI / : central obesity, abdomen NT and ND, normoactive BS, no sprapubic tenderness Back : no CVA tenderness Skin: no overt bruising or ecchymosis, no open lesions Extremities: LUE slightly weaker than right, left hand commercial loan specialist also slightly weaker than right, ROM equal bi-pedal pulses palpable, 1+, no edema b/l, no joint effusion of knee or ankle Psych: cooperative, normal mood and affect, good historian Neuro: AOx 3 slight dysmetria with vjdtkc-[id number] (left) and slightly weaker hand-commercial loan specialist and strength (left), however no arm drift No facial asymmetry, no facial palsy, no aphasia or dysarthria, sensation intact, no tremor, no motor deficits NIHSS: 1 (left limb ataxia, kpriad-oz-[id number] coordination on the left is significantly slower and not as precise as on the right) Objective Labs Result Diagrams: 06/13/18 16:15 06/13/18 16:15 Labs: Laboratory Results - last 24 hr 06/13/18 06/13/18 06/13/18 16:15 16:15 16:15 WBC 5.7 RBC 4.58 Hgb 13.5 Hct 40.4 MCV 88.3 MCH 29.4 MCHC 33.3 RDW 13.0 Plt Count 243 Neut % (Auto) 61.9 Lymph % (Auto) 24.7 L [facility] % (Auto) 10.6 Eos % (Auto) 2.3 Baso % (Auto) 0.5 Neut # (Auto) 3500 Lymph # (Auto) 1400 [facility] # (Auto) 600 Eos # (Auto) 100 Baso # (Auto) 0 PT INR APTT D-Dimer 221 Sodium 139 Potassium 4.0 Chloride 101 Carbon Dioxide 28 BUN 16 Creatinine 0.90 Estimated GFR > 60.0 BUN/Creatinine Ratio 17.8 Glucose 92 Calcium 9.4 Total Bilirubin 0.3 AST 23 ALT 15 Alkaline Phosphatase 45 Total Creatine Kinase 62 CK-MB (CK-2) TNP CK-MB (CK-2) Rel Index TNP Troponin I < 0.012 Total Protein 7.5 Albumin 4.3 Globulin 3.2 Albumin/Globulin Ratio 1.3 06/13/18 16:15 WBC RBC Hgb Hct MCV MCH MCHC RDW Plt Count Neut % (Auto) Lymph % (Auto) [facility] % (Auto) Eos % (Auto) Baso % (Auto) Neut # (Auto) Lymph # (Auto) [facility] # (Auto) Eos # (Auto) Baso # (Auto) PT 11.5 INR 1.0 APTT 32 D-Dimer Sodium Potassium Chloride Carbon Dioxide BUN Creatinine Estimated GFR BUN/Creatinine Ratio Glucose Calcium Total Bilirubin AST ALT Alkaline Phosphatase Total Creatine Kinase CK-MB (CK-2) CK-MB (CK-2) Rel Index Troponin I Total Protein Albumin Globulin Albumin/Globulin Ratio Assessment & Plan Assessment & Plan narrative: Patient admitted under observation status for atypical chest pain and exertional dyspnea. Atypical chest pain, acute, present on admission, active EKG, 06/13/18 at 15:47, SB (v-rate 57), non-specific T-wave abnormality. Presenting Trop < 0.012 (06/13/18 at 16:15). CXR unrevealing of acute cardiopulmonary process. No electrolyte or metabolic abnormalities. Hgb 13.5, stable, w/o evidence of anemia. HEART Score: 4 (moderate). History (1+, moderately suspicious), EKG (0, normal), Age (1+, 45-64), RF 2+, >/3 HLD, DM, + FHx, smoking (but not current or w/in past 3 months) Symptoms do not appear consistent w/ cardiac etiology - Telemetry monitoring x24 hours, then re-evaluate and consider discontinuing - Trend troponins - Risk Stratify: FLP, A1C in am - Consider stress test, will defer decision to am rounding team. Recommend priority to be given for stroke imaging and echo - Make patient NPO at 2 am, if am team decides to proceed with a stress test - Takes excedrin extra strength at home, which has 250 mg of ASA, once to twice daily, hold while inpatient - Start on ASA 81 mg QD Exertional Dyspnea, sub-acute, present on admission, active SpO2 100% on RA. No notation of hyperinflation on CXR. No evidence of hypervolemia. No dyspnea or tachypnea at rest, on room air w/ SpO2 at 100%, able to speak in full sentences, no chest discomfort w/ palpation. No orthopnea, cough, hemoptysis, or pleurisy. DDx: PE vs DVT vs viral illness vs ACS vs cardiac arrhythmia - Echo w/ bubble study - Concern for malignant pathology, in the absence of aforementioned symptoms and in the presence of lymphadenopathy, fatigue, and weight loss - CTA chest negative for PE (per verbal report), final read pending - Check viral respiratory panel - Consider BLE U/S - BNP Shoulder Pain, Left, acute, present on admission, active NIHSS: 1 (left limb ataxia, rqyejk-qy-shwp coordination on the left is significantly slower and not as precise as on the right) LUE slightly weaker than right, left hand commercial loan specialist also slightly weaker than right, ROM equal + anterior cervical lymphadenopathy (R > L, tender to palpation), focal tenderness in the left supraclavicular and left posterior cervical area, but no overt enlargement palpated; new hard, tender right breast nodule Two concerns at hand, (1) potential recurrence of the malignancy or new malignancy (breast)? metastasis? and (2) stroke, 2/2 atherosclerosis or in the setting of malignancy FHx of gynecologic cancer (mother) - Neuro checks Q4H - Stroke imaging in am, symptom onset on 06/10/18 - Needs a mammogram, will need to inquire in am if done in the inpatient setting Left breast mass, acute, present on admission, active Initially noted by patient 2 weeks ago, with associated symptoms lymphadenopathy, weight loss, fatigue, and shortness of breath Concern for breast cancer. DDx: Fibrocystic breast disease, fibroadenoma. CXR without notation for pleural effusion. LFTs WNL. - needs a mammogram, will inquire in am if available in the inpatient setting Elevated BP w/o prior diagnosis of HTN, acute, present on admission, active - Trend BP, goal SBP < 160 mmHg and DBP < 90 mmHg while inpatient - Review trend in am, if continues to be elevated, then may need to consider starting on an anti-hypertensive agent Hyperlipidemia, chronic, present on admission, active, uncontrolled Most recent FLP available (06/01/2017), Chol 260 Trig 176, LDL 151, HDL 74. Not on a statin. - FLP - Goal LDL < 70 - Start on atorvastatin 40 mg QHS Headache, chronic condition, active No headache at time of the exam. Patient reports history of chronic headaches, describes them to be moderate to severe nature and constant. Character is to have tension headache type qualities. Patient denies having migraines. Recently reports having visual disturbances in the form of a visual aura with brief sensory disturbances (new for patient). However, the patient herself states that at time of such events she has not experienced a headache. Typically headache is abated it with extra-strength Excedrin. Concern / DDx: carotid artery disease (RF: prior significant history of tobacco use, DM, obesity, HLD) VS. Migraine w/ aura VS. acute CVA - CT of the head and MR imaging, which should include MRI/MRA of the neck DM 2T, without complications, chronic condition, present on admission, controlled / stable A1c of 6% (2016) and 6.1% (05/2017). Diet controlled. Not on any oral anti- glycemics or insulin. FHx of DM. - check A1C - Trend glucose level w/ am lab, if elevated (ie > 200) in the setting of acute illness then will consider further acute treatment Interstitial cystitis, chronic, present on admission, active / stable With associated symptoms of urinary frequency and urgency - managed with InterStim system implant Chronic pain syndrome, present on admission, active Pain associated with interstitial cystitis. Also, notes being told of having fibromyalgia as a complication of interstitial cystitis, however reports declining treatment with Lyrica in the past. Baseline pain level / tolerance is /10. NURSING PROGRAM COORDINATOR on dilaudid 8 mg Q6H. - Resume NURSING PROGRAM COORDINATOR regimen of dilaudid Opioid dependence, chronic, present on admission, active / stable - does not appear to exhibit opioid seeking or opioid abuse tendencies Insomnia, chronic condition, present on admission, active / stable NURSING PROGRAM COORDINATOR on trazodone 200 mg QHS. Typically, lower dose of trazodone is utilized to treat insomnia; however, dose of up to 200 mg in patients with substance use disorder is permissible. Pateint requested to have her dose decreased, as she is trying to wean herself off the trazodone. - Resume NURSING PROGRAM COORDINATOR regimen of trazodone at 100 mg QHS H/O Head & Neck cancer / oropharyngeal cancer, known to be in remission s/p chemoradiation therapy. Follows w/ Dr. Dayday Berg. Full Code. Surrogate decision maker is . VTE prophylaxis: SCDs and prophylactic dose lovenox
--- NOTE | 2018-06-13 23:18 | PC.NURSE ---
2300- Pt arrived to room 230 from ED via bed. A/O x3, HTN with 147/99, HR-66-73, denies chest pain at this time. R wrist SL, 97%RA, LS clear, denies SOB at this time, but happens all day at this point in my life. reports takes dilaudid 4mg 2 tabs 4 times daily, for interstiticial cycitis. Telemetry in place. BT+, denies nausea, provided with soup and crackers, and water. reports comfortable. call light in reach.
[2018-06-14 00:59] VITALS: O2SAT 96
[2018-06-14 01:01] LABS: Bacteria Urine None Seen; RBC Urine None Seen (0-5/HPF); WBC Urine None Seen (0-5/HPF)
[2018-06-14 01:02] LABS: Appearance Urine UA CLEAR; Bilirubin Urine UA NEGATIVE (NEGATIVE); Color Urine UA YELLOW; Glucose Urine UA NEGATIVE (Negative); Ketones Urine UA 1+ (NEGATIVE); Leukocyte Esterase Urine UA NEGATIVE (NEGATIVE); Nitrite Urine UA NEGATIVE (Negative); Occult Blood Urine UA NEGATIVE (Negative); Protein Urine UA NEGATIVE (Negative); Urobilinogen Urine UA 0.2 E.U./dL (0.2)
[2018-06-14 01:24] LABS: Culture Indicated Urine Cult Not Indicated; Squamous Epithelial Cell Urine 1-5 /HPF (0-5/HPF)
[2018-06-14 01:50] LABS: Cholesterol 255 mg/dL (140-199); HDL Cholesterol 47 mg/dL (40-60); LDL Cholesterol Calculated 168 mg/dL (<100); Triglycerides 201 mg/dL (35-150); VLDL Cholesterol Calculated 40 mg/dL (2-30)
[2018-06-14] MEDS: HYDROMORPHONE 2 MG TABLET 8 MG PO ×3 (01:51→13:02)
[2018-06-14] MEDS: TRAZODONE 100 MG TABLET PO (01:52)
[2018-06-14 01:56] LABS: Hemoglobin A1C% w Est Avg Glu 5.9 % (4.0-6.0)
[2018-06-14 02:02] LABS: Troponin I < 0.012 ng/mL (0.01-0.034)
[2018-06-14 02:09] LABS: B Type Natriuretic Peptide < 100 (<100)
--- NOTE | 2018-06-14 02:25 | PC.NURSE ---
Received safe hand off from Mel ROSS after admission assessment. Patient is pleasant and talkative. VSS stable. Pain in bladder area due to hx of interstitialcystitis. Pain meds given 8mg of Dilaudid PO. Trazadone for sleep.
[2018-06-14 02:29] LABS: Adenovirus Not Detected (Not Detect); Bordetella pertussis Not Detected (Not Detect); Chlamydophila pneumoniae Not Detected (Not Detect); Coronavirus 229E Not Detected (Not Detect); Coronavirus HKU1 Not Detected (Not Detect); Coronavirus NL 63 Not Detected (Not Detect); Coronavirus OC43 Not Detected (Not Detect); Human Metapneumovirus Not Detected (Not Detect); Human Rhinovirus/Enterovirus Not Detected (Not Detect); Influenza A Not Detected (Not Detect); Influenza B Not Detected (Not Detect); Mycoplasma pneumoniae Not Detected (Not Detect); Parainfluenza Virus 1 Not Detected (Not Detect); Parainfluenza Virus 2 Not Detected (Not Detect); Parainfluenza Virus 3 Not Detected (Not Detect); Parainfluenza Virus 4 Not Detected (Not Detect); Respiratory Syncytial Virus Not Detected (Not Detect)
[2018-06-14 02:52] LABS: Free T4, Direct Thyroxine 1.15 ng/dL (0.78-2.19)
[2018-06-14 04:57] VITALS: BP 125/73; PULSE 58; RESP 18; TEMP 36.7; O2SAT 98
[2018-06-14 05:09] VITALS: O2SAT 98
[2018-06-14 08:00] VITALS: BP 131/87; PULSE 63; RESP 16; TEMP 37; O2SAT 98
[2018-06-14] MEDS: CITALOPRAM 10 MG TABLET PO (08:08)
[2018-06-14] MEDS: MULTIVITAMIN 1 TABLET 1 TAB PO (08:09)
[2018-06-14] MEDS: ASPIRIN 81 MG TAB PO (08:09)
[2018-06-14] MEDS: ENOXAPARIN 40 MG/0.4 ML SYRINGE SUBCUT (09:00)
--- NOTE | 2018-06-14 09:05 | CM.DANOTE ---
Addendum entered by Adilia Lou R.N. 06/14/18 11:55: Was informed by nurses Staci and Kristen, that patient was discussing her concerns with medication costs, cost of echo, and other problems. She was talking about her 's behaviors, stating that he has Asbergers, and they have been having problems. Social Work will be seeing patient at 1:00 along with this bilingual case manager to discuss her concerns. Original Note: DCP: Case received, EMR reviewed and met with patient. Introduced self and role. DCP template completed with information currently available. Patient is a 63 year old female who admitted yesterday evening to the care of the hospitalist team. PCP: Dr. Dodge. Payer: confirmed: Out of State [employer]. Patient came to hospital via family vehicle due to increase shortness of breath. She had also had some left sided shoulder discomfort. Patient is here for observation at this time. Met with patient in her room. Pleasant. Lives in [place] with her , Raymond. They are in the process of looking for a rental in the area, and she stated, it's hard to find any places, since the new sqadrons have come up here. She stated that this causes her to have anxiety at times, and she thinks that's what this is. She is currently working with a property management assistant to help find a place. She stated that her current landlord is working with her, and she can stay in this rental for a couple more months until they can find something. 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 P: DCP to continue to follow. Should be able to go home when she is medically stable. Adilia Lou RN/Resawyer
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
--- NOTE | 2018-06-14 14:21 | PM.DS.1 ---
History of Present Illness Date Patient Seen: 06/13/18 Chief complaint: LEFT SIDED SHOULDER PAIN SOB Narrative: Written by Vinicius ALCANTARA: The patient is an 83-year-old female with PMHx outlined below... PMHx: prior tobacco dependence (2-2.5 ppd for 18 yrs, quit 1991), urinary frequency (s/p InterStim implant), chronic interstitial cystitis, SCC of head & neck (dx 2014, s/p chemoradiation), oropharyngeal cancer (2015), left breast cyst (w/ no evidence of malignancy as of 12/28/2017, pending 1 yr f/u), chronic pain syndrome, fibromyalgia, opioid dependence, DM 2T (A1C 6.1 05/2017), HLD, depression, and insomnia. PSHx: hysterectomy w/ unilateral salpingo-oophorectomy (1993), InterStim system implant The patient presented to the ED on 06/13/2018 in the 1500 hour out of concern for left shoulder pain and shortness of breath. Symptoms noted 3 days prior to ED presentation (06/10/18). Associated symptoms include subjective report of increased temperature, profuse sweating, chest heaviness, swollen lymph nodes, joint pain (notes to be worse from baseline), nausea x3 days (no vomiting or diarrhea), diminished appetite x1 week, unintentional weight loss of 28 lbs since Feb 2018, fatigue and unsteady gait. In the past 2 weeks a nodule in the right breast. Recently experiencing visual disturbances from time to time several visual disturbances, which she describes as a flick of a while light. Shoulder discomfort is localized to the shoulder, characterized as constant with sensation of numbing. There is no radiation to the elbow or fingers. What patient means by shortness of breath is the sensation of not having enough air. She notes need to stop, rest, and take deep breaths. Patient notes shortness of breath since July of 2017, however in the past three days has been more frequent. Symptoms occur at random times and not associated necessarily associated with exertion. Associated symptoms include chest heaviness and profuse diaphoresis throughout the day for the past 3 days. Denies cough, upper respiratory symptoms and chest congestion. 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 Denies hemoptysis and syncopal events. Patient is known to have prior history of tobacco use (2-2.5 ppd x18 yrs, quit in 1991). She does not carry a diagnosis of COPD or MIRIAM. No prior evaluation for sleep apnea. Denies cough, wheezing, pleurisy, orthopnea, ED Work-Up / Course On triage Temp 97.9F BP 149/94 mmHg HR 62 RR 22 SpO2 96% on RA. Noted to be in SR on registered nurse cardiac w/ HR in the 70s. CXR not indicative of acute cardiopulmonary findings. CTA Chest... negative (final read pending) Trop < 0.012 (06/13, 1614) D-Dimer < 230 ng/mL WBC 5.7 Hgb 13.5 Hct 40.4 Plt 243 PT 11.5 INR 1.0 aPTT 32 Na 139 K 4.0 Mg Cl 101 Ca 9.4 Alb 4.3 Glu 92 CO2 28 BUN 16 Cr 0.9 T. Bili 0.3 AST 23 ALT 15 Alk Phos 45 Discharge Providers Date of admission: 06/13/18 22:28 Discharge Date: 06/14/18 Primary care physician: Israel Dodge MD Consults: 06/14/18 11:11 Consult to [employer] Routine Comment: anxiety, financial concerns, lack of support, cope Discharge provider: Nicole Peñaloza DO Summary Discharge Diagnosis: 1. Acute atypical chest pain, present on admission. Resolved. 2. Exertional dyspnea, likely secondary to anxiety, chronic, present on admission. Stable. 3. Acute left shoulder pain, present on admission. Ongoing. 4. Several breast lumps with acute immobile, tender, hard right breast nodule, present on admission. Active. 5. Elevated BP without prior diagnosis of HTN, acute, present on admission. Resolved. 6. Hyperlipidemia, chronic, present on admission. Stable. 7. Headache, chronic, not present on admission. Stable. 8. Diabetes mellitus type 2, without complications, chronic condition, present on admission, controlled / stable 9. Interstitial cystitis, chronic, present on admission. Stable. 10. Chronic pain syndrome with opiate dependence, present on admission. Stable. 11. Insomnia, chronic, present on admission. Stable. 12. History of squamous cell carcinoma of head and neck thought presumed to be in remission. Hospital Course: Oliver Shay is a 63-year-old female who presented for progressive worsening shortness of breath. The patient did was thoroughly evaluated and several imaging modalities were ordered including CT head and neck, MR stroke protocol, and echocardiogram for which the patient declined due to financial concerns/burden. The patient requested to be discharged home. Recommended outpatient counseling with cognitive behavioral therapy, increase his citalopram to 20 mg daily and started BuSpar 7.5 mg twice daily. Recommended patient follow up with her PCP Dr. Dodge and her oncologist Dr. Berg at scheduled appointments. 1. Acute atypical chest pain, present on admission. Resolved. -EKG, 06/13/18 at 15:47, SB (v-rate 57), non-specific T-wave abnormality. -Serial troponins x3 < 0.012. -CXR unrevealing of acute cardiopulmonary process. -No electrolyte or metabolic abnormalities. Hgb 13.5, stable, w/o evidence of anemia. -HEART Score: 4 (moderate). History (1+, moderately suspicious), EKG (0, normal), Age (1+, 45-64), RF 2+, >/3 HLD, DM, + FHx, smoking (but not current or w/in past 3 months). -Symptoms do not appear consistent w/ cardiac etiology -Telemetry monitoring x24 hours. No ectopy. -Risk Stratify: -Patient refused this MR stroke protocol and echocardiogram due to financial concerns/burden. Considered stress test but did not order. Recommend outpatient workup. -Started ASA 81 mg daily and atorvastatin 40 mg daily at bedtime. Discontinued Excedrin indefinitely. 2. Exertional dyspnea, likely secondary to anxiety, chronic, present on admission. Stable. -SpO2 100% on RA. No notation of hyperinflation on CXR. No evidence of hypervolemia. No dyspnea or tachypnea at rest, on room air w/ SpO2 at 100%, able to speak in full sentences, no chest discomfort w/ palpation. No orthopnea, cough, hemoptysis, or pleurisy. -DDx: PE vs DVT vs viral illness vs ACS vs cardiac arrhythmia -Patient refused echocardiogram due to financial concerns/burn -Concern for malignant pathology, in the absence of aforementioned symptoms and in the presence of lymphadenopathy, fatigue, and weight loss. -CTA chest negative for PE or PNA. -Respiratory viral PCR negative. -BLE U/S negative for DVT. 3. Acute left shoulder pain, present on admission. Ongoing. -Likely musculoskeletal in secondary to tension. 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 Two concerns at hand, (1) potential recurrence of the malignancy or new malignancy (breast)? metastasis? and (2) stroke, 2/2 atherosclerosis or in the setting of malignancy. Family history of gynecologic cancer (mother). -NIHSS: 1 (left limb ataxia, [id number] coordination on the left is significantly slower and not as precise as on the right). -Neuro checks every 4 hours. -CT head and neck and MR stroke protocol ordered and patient refused due to financial concern/burden. 4. Several breast lumps with acute immobile, tender, hard right breast nodule, present on admission. Active. -Initially noted by patient 2 weeks ago, with associated symptoms lymphadenopathy, weight loss, fatigue, and shortness of breath. -Concern for breast cancer. DDx: Fibrocystic breast disease, fibroadenoma. CXR without notation for pleural effusion. LFTs WNL. -Recommended close follow-up and further workup with her outpatient oncologist Dr. Berg. 5. Elevated BP without prior diagnosis of HTN, acute, present on admission. Resolved. -Trend BP, goal SBP < 160 mmHg and DBP < 90 mmHg while inpatient. Patient became normotensive without any intervention. Did not start antihypertensive. Recommended close outpatient follow-up and consideration of antihypertensive if she has several elevated measurements. 6. Hyperlipidemia, chronic, present on admission. Stable. -Patient has not been medically treated. -Fasting lipid panel demonstrated: Total cholesterol 255, triglycerides 201, LDL 168, HDL 47. Goal LDL <100. -Started atorvastatin 40 mg daily at bedtime due to high risk of cardiovascular disease. 7. Headache, chronic, not present on admission. Stable. -No headache during hospitalization. Patient reports history of chronic headaches, describes them to be moderate to severe nature and constant. Character is to have tension headache type qualities. Patient denies having migraines. Recently reports having visual disturbances in the form of a visual aura with brief sensory disturbances (new for patient). However, the patient herself states that at time of such events she has not experienced a headache. Typically headache is abated it with extra-strength Excedrin. -Concern / DDx: carotid artery disease (RF: prior significant history of tobacco use, DM, obesity, HLD) VS. Migraine w/ aura VS. acute CVA -CT head and neck and MR stroke protocol ordered and patient refused due to financial concern/burden. 8. Diabetes mellitus type 2, without complications, chronic condition, present on admission, controlled / stable -Hemoglobin A1c 5.9%. Diet controlled. Not on any oral anti-glycemics or insulin. Family history of diabetes mellitus type 2. -Continued heart healthy/carbohydrate consistent diet. 9. Interstitial cystitis, chronic, present on admission. Stable. -With associated symptoms of urinary frequency and urgency. -Managed with InterStim system implant and Dilaudid as below. 10. Chronic pain syndrome with opiate dependence, present on admission. Stable. -Patient was started on Dilaudid for interstitial cystitis. Also, notes being told of having fibromyalgia as a complication of interstitial cystitis, however, reports declining treatment with Lyrica in the past. Baseline pain level/tolerance is +4/10. -Does not appear to exhibit opiate seeking or opiate abuse tendencies. -Continued home Dilaudid 8 mg every 6 hours as needed for pain. Encouraged the patient to titrate down to lowest possible dose. 11. Insomnia, chronic, present on admission. Stable. -Continued trazodone at 100 mg QHS 12. History of squamous cell carcinoma of head and neck thought presumed to be in remission. -Now status post chemoradiation therapy. Follows w/ Dr. Dayday Berg. Status at Discharge Functional status at discharge: independent ambulation Overall status at discharge: patient is back to baseline Exam Vital Signs (past 8 hours): - 06/14/18 08:00 Temperature 98.6 F Pulse Rate 63 Respiratory Rate 16 Blood Pressure 131/87 Pulse Oximetry 98 Oxygen Delivery Method Room Air Narrative Exam Narrative: General: Middle-aged female sitting in bed and in no acute distress, well-developed, well-nourished, appropriately interactive. HEENT: Normocephalic, atraumatic. External ears without defect. Pupils equal, round, and reactive to light and accommodation. Anicteric sclerae, moist conjunctivae, and no lid lag. Oropharynx free of erythema and cobble stoning with moist mucosa. Neck: Supple with full range of motion. No jugular venous distension. No bruits. No thyromegaly. Bilateral anterior cervical lymphadenopathy. Tenderness to palpation of left trapezius, no mass. Cardiovascular: Regular rate and rhythm without murmurs, rubs, or gallops appreciated. Pulmonary: Clear to auscultation bilaterally without crackles, wheezes, or rhonchi. Normal respiratory effort with no use of accessory muscles. Breast: Right breast with small 1 cm firm and immobile mass. Abdomen: Soft, obese, bowel sounds present, nontender, nondistended. No hepatosplenomegaly or masses appreciated. Extremities: No clubbing, cyanosis, or edema. Skin: Normal temperature, turgor, and texture; no rash, ulcers, or subcutaneous nodules appreciated. Neurological: Cranial nerves grossly intact. Normal muscle strength, tone, and bulk. Reflexes, coordination, and sensory function within normal limits. No known gait impairment. Psychiatric: Depressed and significantly anxious mood with normal affect. Alert and oriented to person, place, and time. Objective Labs Result Diagrams: 06/13/18 16:15 06/13/18 16:15 Labs: Laboratory Results - last 24 hr 06/13/18 06/13/18 06/13/18 16:15 16:15 16:15 WBC 5.7 RBC 4.58 Hgb 13.5 Hct 40.4 MCV 88.3 MCH 29.4 MCHC 33.3 RDW 13.0 Plt Count 243 Neut % (Auto) 61.9 Lymph % (Auto) 24.7 L [place] % (Auto) 10.6 Eos % (Auto) 2.3 Baso % (Auto) 0.5 Neut # (Auto) 3500 Lymph # (Auto) 1400 [place] # (Auto) 600 Eos # (Auto) 100 Baso # (Auto) 0 PT INR APTT D-Dimer 221 Sodium 139 Potassium 4.0 Chloride 101 Carbon Dioxide 28 BUN 16 Creatinine 0.90 Estimated GFR > 60.0 BUN/Creatinine Ratio 17.8 Glucose 92 Hemoglobin A1c Calcium 9.4 Total Bilirubin 0.3 AST 23 ALT 15 Alkaline Phosphatase 45 Total Creatine Kinase 62 CK-MB (CK-2) TNP CK-MB (CK-2) Rel Index TNP Troponin I < 0.012 B-Natriuretic Peptide Total Protein 7.5 Albumin 4.3 Globulin 3.2 Albumin/Globulin Ratio 1.3 Triglycerides Cholesterol LDL Cholesterol, Calc VLDL Cholesterol HDL Cholesterol TSH Free T4 Urine Color Urine Appearance Urine pH Ur Specific [place] Urine Protein Urine Glucose (UA) Urine Ketones Urine Occult Blood Urine Nitrate Urine Bilirubin Urine Urobilinogen Ur Leukocyte Esterase Urine RBC Urine WBC Ur Squamous Epith Cells Urine Bacteria Ur Culture Indicated? Chlamy pneumoniae PCR Adenovirus (PCR) B.parapertussis DNA PCR Coronavirus OC43 (PCR) Coronavirus HKU1 (PCR) Coronavirus 229E (PCR) Coronavirus NL63 (PCR) Human Metapneumovir PCR Influenza Type A (PCR) Influenza Type B (PCR) M. pneumoniae (PCR) Parainfluenza 1 (PCR) Parainfluenza 2 (PCR) Parainfluenza 3 (PCR) Parainfluenza 4 (PCR) RSV (PCR) Entero/Rhino (PCR) 06/13/18 06/14/18 06/14/18 16:15 00:59 01:07 WBC RBC Hgb Hct MCV MCH MCHC RDW Plt Count Neut % (Auto) Lymph % (Auto) [place] % (Auto) Eos % (Auto) Baso % (Auto) Neut # (Auto) Lymph # (Auto) [place] # (Auto) Eos # (Auto) Baso # (Auto) PT 11.5 INR 1.0 APTT 32 D-Dimer Sodium Potassium Chloride Carbon Dioxide BUN Creatinine Estimated GFR BUN/Creatinine Ratio Glucose Hemoglobin A1c Calcium Total Bilirubin AST ALT Alkaline Phosphatase Total Creatine Kinase CK-MB (CK-2) CK-MB (CK-2) Rel Index Troponin I B-Natriuretic Peptide Total Protein Albumin Globulin Albumin/Globulin Ratio Triglycerides Cholesterol LDL Cholesterol, Calc VLDL Cholesterol HDL Cholesterol TSH Free T4 Urine Color Yellow Urine Appearance Clear Urine pH 7.0 Ur Specific [place] 1.010 Urine Protein Negative Urine Glucose (UA) Negative Urine Ketones 1+ H Urine Occult Blood Negative Urine Nitrate Negative Urine Bilirubin Negative Urine Urobilinogen 0.2 Ur Leukocyte Esterase Negative Urine RBC None seen Urine WBC None seen Ur Squamous Epith Cells 1-5 /hpf Urine Bacteria None seen Ur Culture Indicated? Cult not indicated Chlamy pneumoniae PCR Not detected Adenovirus (PCR) Not detected B.parapertussis DNA PCR Not detected Coronavirus OC43 (PCR) Not detected Coronavirus HKU1 (PCR) Not detected Coronavirus 229E (PCR) Not detected Coronavirus NL63 (PCR) Not detected Human Metapneumovir PCR Not detected Influenza Type A (PCR) Not detected Influenza Type B (PCR) Not detected M. pneumoniae (PCR) Not detected Parainfluenza 1 (PCR) Not detected Parainfluenza 2 (PCR) Not detected Parainfluenza 3 (PCR) Not detected Parainfluenza 4 (PCR) Not detected RSV (PCR) Not detected Entero/Rhino (PCR) Not detected 06/14/18 06/14/18 06/14/18 01:22 01:22 01:22 WBC RBC Hgb Hct MCV MCH MCHC RDW Plt Count Neut % (Auto) Lymph % (Auto) [place] % (Auto) Eos % (Auto) Baso % (Auto) Neut # (Auto) Lymph # (Auto) [place] # (Auto) Eos # (Auto) Baso # (Auto) PT INR APTT D-Dimer Sodium Potassium Chloride Carbon Dioxide BUN Creatinine Estimated GFR BUN/Creatinine Ratio Glucose Hemoglobin A1c 5.9 Calcium Total Bilirubin AST ALT Alkaline Phosphatase Total Creatine Kinase CK-MB (CK-2) CK-MB (CK-2) Rel Index Troponin I B-Natriuretic Peptide Total Protein Albumin Globulin Albumin/Globulin Ratio Triglycerides 201 H Cholesterol 255 H LDL Cholesterol, Calc 168 H VLDL Cholesterol 40 H HDL Cholesterol 47 TSH 4.70 H Free T4 1.15 Urine Color Urine Appearance Urine pH Ur Specific [place] Urine Protein Urine Glucose (UA) Urine Ketones Urine Occult Blood Urine Nitrate Urine Bilirubin Urine Urobilinogen Ur Leukocyte Esterase Urine RBC Urine WBC Ur Squamous Epith Cells Urine Bacteria Ur Culture Indicated? Chlamy pneumoniae PCR Adenovirus (PCR) B.parapertussis DNA PCR Coronavirus OC43 (PCR) Coronavirus HKU1 (PCR) Coronavirus 229E (PCR) Coronavirus NL63 (PCR) Human Metapneumovir PCR Influenza Type A (PCR) Influenza Type B (PCR) M. pneumoniae (PCR) Parainfluenza 1 (PCR) Parainfluenza 2 (PCR) Parainfluenza 3 (PCR) Parainfluenza 4 (PCR) RSV (PCR) Entero/Rhino (PCR) 06/14/18 06/14/18 01:22 01:22 WBC RBC Hgb Hct MCV MCH MCHC RDW Plt Count Neut % (Auto) Lymph % (Auto) [place] % (Auto) Eos % (Auto) Baso % (Auto) Neut # (Auto) Lymph # (Auto) [place] # (Auto) Eos # (Auto) Baso # (Auto) PT INR APTT D-Dimer Sodium Potassium Chloride Carbon Dioxide BUN Creatinine Estimated GFR BUN/Creatinine Ratio Glucose Hemoglobin A1c Calcium Total Bilirubin AST ALT Alkaline Phosphatase Total Creatine Kinase CK-MB (CK-2) CK-MB (CK-2) Rel Index Troponin I < 0.012 B-Natriuretic Peptide < 100 Total Protein Albumin Globulin Albumin/Globulin Ratio Triglycerides Cholesterol LDL Cholesterol, Calc VLDL Cholesterol HDL Cholesterol TSH Free T4 Urine Color Urine Appearance Urine pH Ur Specific [place] Urine Protein Urine Glucose (UA) Urine Ketones Urine Occult Blood Urine Nitrate Urine Bilirubin Urine Urobilinogen Ur Leukocyte Esterase Urine RBC Urine WBC Ur Squamous Epith Cells Urine Bacteria Ur Culture Indicated? Chlamy pneumoniae PCR Adenovirus (PCR) B.parapertussis DNA PCR Coronavirus OC43 (PCR) Coronavirus HKU1 (PCR) Coronavirus 229E (PCR) Coronavirus NL63 (PCR) Human Metapneumovir PCR Influenza Type A (PCR) Influenza Type B (PCR) M. pneumoniae (PCR) Parainfluenza 1 (PCR) Parainfluenza 2 (PCR) Parainfluenza 3 (PCR) Parainfluenza 4 (PCR) RSV (PCR) Entero/Rhino (PCR) Discharge Plan Discharge Plan Patient Disposition: Home Discharge comment: You are being discharged home. Please follow-up with Dr. Dodge at your scheduled appointment regarding your hospitalization. Your shoulder pain is likely musculoskeletal and due to muscle tension. Your EKG and cardiac enzymes are normal and show no evidence of heart attack or impending heart attack. Your cholesterol is elevated and you were prescribed atorvastatin 40 mg daily at bedtime and aspirin 81 mg daily (take with food). If you develop all over muscle aches stop atorvastatin immediately and follow-up with your PCP. You are prediabetic for which we recommend diet and exercise as discussed. The [place] [employer] recommend 150 minutes of moderate intensity exercise per week. Start with small obtainable goals and work your way up. You were provided a Mediterranean diet handout. Try to cut back on excessive sugar and carbohydrates. Please follow-up with Dr. Berg regarding your breast lump as this may be cancerous. Your shortness of breath is likely related to anxiety. Recommend increasing citalopram to 20 mg daily and in addition you were prescribed Buspar 7.5 mg twice daily to help treat anxiety. You would also benefit from cognitive behavioral therapy and counseling to implement better coping skills and to decrease stress and anxiety. Do not recommend NSAIDs chronically and Excedrin was discontinued. Also recommend you try to titrate down and possibly off narcotics. Discharge Med Rec/Prescriptions Prescriptions: New atorvastatin [Lipitor] 20 mg Tablet 40 mg PO BEDTIME Qty: 60 RF: 0 aspirin [Aspir-81] 81 mg tablet,delayed release (DR/EC) 81 mg PO DAILY Qty: 30 RF: 0 buspirone 7.5 mg tablet 7.5 mg PO BID Qty: 60 RF: 0 Continued omeprazole 20 mg Capsule,Delayed Release(Dr/Ec) 20 mg PO DAILY Qty: 0 RF: 0 hydromorphone [Dilaudid] 4 mg tablet 8 mg PO Q6H Qty: 240 RF: 0 multivitamin Tablet 1 tab PO DAILY RF: 0 Fish Oil 1 cap PO DAILY RF: 0 Stool Softener 1 cap PO QAM RF: 0 Vitamin B 1 tab PO DAILY RF: 0 Vitamin D3 1 cap PO DAILY RF: 0 estradiol [Estrace] 1 mg tablet 1 mg PO DAILY RF: 0 trazodone 100 mg tablet 200 mg PO BEDTIME RF: 0 Changed citalopram 10 mg tablet 20 mg PO DAILY Qty: 90 RF: 1 Discontinued Excedrin Extra Strength 250-250-65 mg Tablet 1 tab PO QAM RF: 0 Follow up/Referrals: Israel Dodge MD [Primary Care Provider] - 06/20/18 4:00 pm (appt:06/20 @ 4:[address] dodge [phone]) Provider Discharge Instructions Diet: Diet as Tolerated, Carb-consistent/Diabetic, Low-fat, Low-sodium and Low-cholesterol Activity: Activity as tolerated Visit Report/Discharge Packet Instructions: The Mediterranean Diet and Good Health, The DASH Diet, Generalized Anxiety Disorder, Anxiety and Panic Attacks (Alternative Therapy), DI for Anxiety -- Adult, Yoga May Help Reduce Anxiety and Stress, Buspirone (By mouth), Atorvastatin (By mouth) Discharge Data Primary Care Provider: Israel Dodge Attending Provider: Vinicius Ramos Admit Date/Time: 06/13/18 22:28 Discharges patient from system. Discharge Date/Time: 06/14/18 15:14 Quality VTE Deep Vein Thrombosis/Pulmonary Embolism Present on Admission: No
--- NOTE | 2018-06-14 15:12 | PC.NURSE ---
Discharge instructions given verbally and in writing, including new meds, dc'd meds, last dose, followup instructions, stroke education. Pt discharged with all belongings via wheelchair and to private vehicle at 1512.
--- NOTE | 2018-06-15 18:09 | P.DS_ITS ---
History of Present Illness Date Patient Seen: 06/13/18 Chief complaint: LEFT SIDED SHOULDER PAIN SOB Narrative: Written by Vinicius ALCANTARA: The patient is an 83-year-old female with PMHx outlined below... PMHx: prior tobacco dependence (2-2.5 ppd for 18 yrs, quit 1991), urinary f requency (s/p InterStim implant), chronic interstitial cystitis, SCC of head & neck (dx 2014, s/p chemoradiation), oropharyngeal cancer (2015), left breast cyst (w/ no evidence of malignancy as of 12/28/2017, pending 1 yr f/u), chronic pain syndrome, fibromyalgia, opioid dependence, DM 2T (A1C 6.1 05/2017), HLD, depression, and insomnia. PSHx: hysterectomy w/ unilateral salpingo-oophorectomy (1993), InterStim system implant The patient presented to the ED on 06/13/2018 in the 1500 hour out of concern for left shoulder pain and shortness of breath. Symptoms noted 3 days prior to ED presentation (06/10/18). Associated symptoms include subjective report of increased temperature, profuse sweating, chest heaviness, swollen lymph nodes, joint pain (notes to be worse from baseline), nausea x3 days (no vomiting or diarrhea), diminished appetite x1 week, unintentional weight loss of 28 lbs sin e Feb 2018, fatigue and unsteady gait. In the past 2 weeks a nodule in the right breast. Recently experiencing visual disturbances from time to time several visual disturbances, which she describes as a flick of a while light. Shoulder discomfort is localized to the shoulder, characterized as constant with sensation of numbing. There is no radiation to the elbow or fingers. What patient means by shortness of breath is the sensation of not having enough air. She notes need to stop, rest, and take deep breaths. Patient notes shortness of breath since July of 2017, however in the past three days has been more frequent. Symptoms occur at random times and not associated necessarily associ ated with exertion. Associated symptoms include chest heaviness and profuse diaphoresis throughout the day for the past 3 days. Denies cough, upper respiratory symptoms and chest congestion. 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 Denies hemoptysis and syncopal events. Patient is known to have prior history of tobacco use (2-2.5 ppd x18 yrs, quit in 1991). She does not carry a diagnosis of COPD or MIRIAM. No prior evaluation for sleep apnea. Denies cough, wheezing, pleurisy, orthopnea, ED Work-Up / Course On triage Temp 97.9F BP 149/94 mmHg HR 62 RR 22 SpO2 96% on RA. Noted to be in SR on monitor worker w/ HR in the 70s. CXR not indicative of acute cardiopulmonary findings. CTA Chest... negative (final read pending) Trop < 0.012 (06/13, 161) D-Dimer < 230 ng/mL WBC 5.7 Hgb 13.5 Hct 40.4 Plt 243 PT 11.5 INR 1.0 aPTT 32 Na 139 K 4.0 Mg Cl 101 Ca 9.4 Alb 4.3 Glu 92 CO2 28 BUN 16 Cr 0.9 T. Bili 0.3 AST 23 ALT 15 Alk Phos 45 Discharge Providers Date of admission: 06/13/18 22:28 Discharge Date: 06/14/18 Primary care physician: Israel Dodge MD Consults: 06/14/18 11:11 Consult to Odd Piece Checker Routine Comment: anxiety, financial concerns, lack of support, cope Discharge provider: Nicole Peñaloza DO Summary Discharge Diagnosis: 1. Acute atypical chest pain, present on admission. Resolved. 2. Exertional dyspnea, likely secondary to anxiety, chronic, present on admission. Stable. 3. Acute left shoulder pain, present on admission. Ongoing. 4. Several breast lumps with acute immobile, tender, hard right breast nodule, present on admission. Active. 5. Elevated BP without prior diagnosis of HTN, acute, present on admission. Resolved. 6. Hyperlipidemia, chronic, present on admission. Stable. 7. Headache, chronic, not present on admission. Stable. 8. Diabetes mellitus type 2, without complications, chronic condition, present on admission, controlled / stable 9. Interstitial cystitis, chronic, present on admission. Stable. 10. Chronic pain syndrome with opiate dependence, present on admission. Stable. 11. Insomnia, chronic, present on admission. Stable. 12. History of squamous cell carcinoma of head and neck thought presumed to be in remission. Hospital Course: Oliver Shay is a 63-year-old female who presented for progressive worsening shortness of breath. The patient did was thoroughly evaluated and several imaging modalities were ordered including CT head and neck, MR stroke protocol, and echocardiogram for which the patient declined due to financial concerns/burden. The patient requested to be discharged home. Recommended o utpatient counseling with cognitive behavioral therapy, increase his citalopram to 20 mg daily and started BuSpar 7.5 mg twice daily. Recommended patient follow up with her PCP Dr. Dodge and her oncologist Dr. Berg at scheduled appointments. 1. Acute atypical chest pain, present on admission. Resolved. -EKG, 06/13/18 at 15:47, SB (v-rate 57), non-specific T-wave abnormality. -Serial troponins x3 < 0.012. -CXR unrevealing of acute cardiopulmonary process. -No electrolyte or metabolic abnormalities. Hgb 13.5, stable, w/o evidence of anemia. -HEART Score: 4 (moderate). History (1+, moderately suspicious), EKG (0, normal), Age (1+, 45-64), RF 2+, >/3 HLD, DM, + FHx, smoking (but not current or w/in past 3 months). -Symptoms do not appear consistent w/ cardiac etiology -Telemetry monitoring x24 hours. No ectopy. -Risk Stratify: -Patient refused this MR stroke protocol and echocardiogram due to financial concerns/burden. Considered stress test but did not order. Recommend outpat ient workup. -Started ASA 81 mg daily and atorvastatin 40 mg daily at bedtime. Discontinued Excedrin indefinitely. 2. Exertional dyspnea, likely secondary to anxiety, chronic, present on admission. Stable. -SpO2 100% on RA. No notation of hyperinflation on CXR. No evidence of hypervolemia. No dyspnea or tachypnea at rest, on room air w/ SpO2 at 100%, able to speak in full sentences, no chest discomfort w/ palpation. No orthopnea, cough, hemoptysis, or pleurisy. -DDx: PE vs DVT vs viral illness vs ACS vs cardiac arrhythmia -Patient refused echocardiogram due to financial concerns/burn -Concern for malignant pathology, in the absence of aforementioned symptoms and in the presence of lymphadenopathy, fatigue, and weight loss. -CTA chest negative for PE or PNA. -Respiratory viral PCR negative. -BLE U/S negative for DVT. 3. Acute left shoulder pain, present on admission. Ongoing. -Likely musculoskeletal in secondary to tension. However, LUE slightly weaker than right, left hand hand bunch maker also slightly weaker than right, ROM equal, positive anterior cervical lymphadenopathy (R > L, tender to palpation), focal tenderness in the left supraclavicular and left posterior cervical area without overt enlargement palpated; new hard, tender right breast nodule. Two concerns at hand, (1) potential recurrence of the malignancy or new malignancy (breast)? metastasis? and (2) stroke, 2/2 atherosclerosis or in the setting of malignancy. Family history of gynecologic cancer (mother). -NIHSS: 1 (left limb ataxia, [id number] coordination on the left is significantly slower and not as precise as on the right). -Neuro checks every 4 hours. -CT head and neck and MR stroke protocol ordered and patient refused due to financial concern/burden. 4. Several breast lumps with acute immobile, tender, hard right breast nodule, present on admission. Active. -Initially noted by patient 2 weeks ago, with associated symptoms lymphadenopathy, weight loss, fatigue, and shortness of breath. -Concern for breast cancer. DDx: Fibrocystic breast disease, fibroadenoma. CXR without notation for pleural effusion. LFTs WNL. -Recommended close follow-up and further workup with her outpatient oncologist Dr. Berg. 5. Elevated BP without prior diagnosis of HTN, acute, present on admission. Res olved. -Trend BP, goal SBP < 160 mmHg and DBP < 90 mmHg while inpatient. Patient became normotensive without any intervention. Did not start antihypertensive. Recommended close outpatient follow-up and consideration of antihypertensive if she has several elevated measurements. 6. Hyperlipidemia, chronic, present on admission. Stable. -Patient has not been medically treated. -Fasting lipid panel demonstrated: Total cholesterol 255, triglycerides 201, LDL 168, HDL 47. Goal LDL <100. -Started atorvastatin 40 mg daily at bedtime due to high risk of cardiovascular disease. 7. Headache, chronic, not present on admission. Stable. -No headache during hospitalization. Patient reports history of chronic headaches, describes them to be moderate to severe nature and constant. Character is to have tension headache type qualities. Patient denies having migraines. Recently reports having visual disturbances in the form of a visual aura with brief sensory disturbances (new for patient). However, the patient herself states that at time of such events she has not experienced a headache. Typically headache is abated it with extra-strength Excedrin. -Concern / DDx: carotid artery disease (RF: prior significant history of tobacco use, DM, obesity, HLD) VS. Migraine w/ aura VS. acute CVA -CT head and neck and MR stroke protocol ordered and patient refused due to financial concern/burden. 8. Diabetes mellitus type 2, without complications, chronic condition, present on admission, controlled / stable -Hemoglobin A1c 5.9%. Diet controlled. Not on any oral anti-glycemics or insul in. Family history of diabetes mellitus type 2. -Continued heart healthy/carbohydrate consistent diet. 9. Interstitial cystitis, chronic, present on admission. Stable. -With associated symptoms of urinary frequency and urgency. -Managed with InterStim system implant and Dilaudid as below. 10. Chronic pain syndrome with opiate dependence, present on admission. Stable. -Patient was started on Dilaudid for interstitial cystitis. Also, notes being told of having fibromyalgia as a complication of interstitial cystitis, however, reports declining treatment with Lyrica in the past. Baseline pain level/tolerance is +4/10. -Does not appear to exhibit opiate seeking or opiate abuse tendencies. -Continued home Dilaudid 8 mg every 6 hours as needed for pain. Encouraged the patient to titrate down to lowest possible dose. 11. Insomnia, chronic, present on admission. Stable. -Continued trazodone at 100 mg QHS 12. History of squamous cell carcinoma of head and neck thought presumed to be i n remission. -Now status post chemoradiation therapy. Follows w/ Dr. Dayday Berg. Status at Discharge Functional status at discharge: independent ambulation Overall status at discharge: patient is back to baseline Exam Vital Signs (past 8 hours): - 06/14/18 08:00 Temperature 98.6 F Pulse Rate 63 Respiratory Rate 16 Blood Pressure 131/87 Pulse Oximetry 98 Oxygen Delivery Method Room Air Narrative Exam Narrative: General: Middle-aged female sitting in bed and in no acute distress, well- developed, well-nourished, appropriately interactive. HEENT: Normocephalic, atraumatic. External ears without defect. Pupils equal, round, and reactive to light and accommodation. Anicteric sclerae, moist conjunctivae, and no lid lag. Oropharynx free of erythema and cobble stoning with moist mucosa. Neck: Supple with full range of motion. No jugular venous distension. No bruits. No thyromegaly. Bilateral anterior cervical lymphadenopathy. Tenderness to palpation of left trapezius, no mass. Cardiovascular: Regular rate and rhythm without murmurs, rubs, or gallops appreciated. Pulmonary: Clear to auscultation bilaterally without crackles, wheezes, or rhonchi. Normal respiratory effort with no use of accessory muscles. Breast: Right breast with small 1 cm firm and immobile mass. Abdomen: Soft, obese, bowel sounds present, nontender, nondistended. No hepatosplenomegaly or masses appreciated. Extremities: No clubbing, cyanosis, or edema. Skin: Normal temperature, turgor, and texture; no rash, ulcers, or subcutaneous nodules appreciated. Neurological: Cranial nerves grossly intact. Normal muscle strength, tone, and bulk. Reflexes, coordination, and sensory function within normal limits. No k nown gait impairment. Psychiatric: Depressed and significantly anxious mood with normal affect. Alert and oriented to person, place, and time. Objective Labs Result Diagrams: 06/13/18 16:15 06/13/18 16:15 Labs: Laboratory Results - last 24 hr 06/13/18 06/13/18 06/13/18 16:15 16:15 16:15 WBC 5.7 RBC 4.58 Hgb 13.5 Hct 40.4 MCV 88.3 MCH 29.4 MCHC 33.3 RDW 13.0 Plt Count 243 Neut % (Auto) 61.9 Lymph % (Auto) 24.7 L [place] % (Auto) 10.6 Eos % (Auto) 2.3 Baso % (Auto) 0.5 Neut # (Auto) 3500 Lymph # (Auto) 1400 [place] # (Auto) 600 Eos # (Auto) 100 Baso # (Auto) 0 PT INR APTT D-Dimer 221 Sodium 139 Potassium 4.0 Chloride 101 Carbon Dioxide 28 BUN 16 Creatinine 0.90 Estimated GFR > 60.0 BUN/Creatinine Ratio 17.8 Glucose 92 Hemoglobin A1c Calcium 9.4 Total Bilirubin 0.3 AST 23 ALT 15 Alkaline Phosphatase 45 Total Creatine Kinase 62 CK-MB (CK-2) TNP CK-MB (CK-2) Rel Index TNP Troponin I < 0.012 B-Natriuretic Peptide Total Protein 7.5 Albumin 4.3 Globulin 3.2 Albumin/Globulin Ratio 1.3 Triglycerides Cholesterol LDL Cholesterol, Calc VLDL Cholesterol HDL Cholesterol TSH Free T4 Urine Color Urine Appearance Urine pH Ur Specific [place] Urine Protein Urine Glucose (UA) Urine Ketones Urine Occult Blood Urine Nitrate Urine Bilirubin Urine Urobilinogen Ur Leukocyte Esterase Urine RBC Urine WBC Ur Squamous Epith Cells Urine Bacteria Ur Culture Indicated? Chlamy pneumoniae PCR Adenovirus (PCR) B.parapertussis DNA PCR Coronavirus OC43 (PCR) Coronavirus HKU1 (PCR) Coronavirus 229E (PCR) Coronavirus NL63 (PCR) Human Metapneumovir PCR Influenza Type A (PCR) Influenza Type B (PCR) M. pneumoniae (PCR) Parainfluenza 1 (PCR) Parainfluenza 2 (PCR) Parainfluenza 3 (PCR) Parainfluenza 4 (PCR) RSV (PCR) Entero/Rhino (PCR) 06/13/18 06/14/18 06/14/18 16:15 00:59 01:07 WBC RBC Hgb Hct MCV MCH MCHC RDW Plt Count Neut % (Auto) Lymph % (Auto) [place] % (Auto) Eos % (Auto) Baso % (Auto) Neut # (Auto) Lymph # (Auto) [place] # (Auto) Eos # (Auto) Baso # (Auto) PT 11.5 INR 1.0 APTT 32 D-Dimer Sodium Potassium Chloride Carbon Dioxide BUN Creatinine Estimated GFR BUN/Creatinine Ratio Glucose Hemoglobin A1c Calcium Total Bilirubin AST ALT Alkaline Phosphatase Total Creatine Kinase CK-MB (CK-2) CK-MB (CK-2) Rel Index Troponin I B-Natriuretic Peptide Total Protein Albumin Globulin Albumin/Globulin Ratio Triglycerides Cholesterol LDL Cholesterol, Calc VLDL Cholesterol HDL Cholesterol TSH Free T4 Urine Color Yellow Urine Appearance Clear Urine pH 7.0 Ur Specific [place] 1.010 Urine Protein Negative Urine Glucose (UA) Negative Urine Ketones 1+ H Urine Occult Blood Negative Urine Nitrate Negative Urine Bilirubin Negative Urine Urobilinogen 0.2 Ur Leukocyte Esterase Negative Urine RBC None seen Urine WBC None seen Ur Squamous Epith Cells 1-5 /hpf Urine Bacteria None seen Ur Culture Indicated? Cult not indicated Chlamy pneumoniae PCR Not detected Adenovirus (PCR) Not detected B.parapertussis DNA PCR Not detected Coronavirus OC43 (PCR) Not detected Coronavirus HKU1 (PCR) Not detected Coronavirus 229E (PCR) Not detected Coronavirus NL63 (PCR) Not detected Human Metapneumovir PCR Not detected Influenza Type A (PCR) Not detected Influenza Type B (PCR) Not detected M. pneumoniae (PCR) Not detected Parainfluenza 1 (PCR) Not detected Parainfluenza 2 (PCR) Not detected Parainfluenza 3 (PCR) Not detected Parainfluenza 4 (PCR) Not detected RSV (PCR) Not detected Entero/Rhino (PCR) Not detected 06/14/18 06/14/18 06/14/18 01:22 01:22 01:22 WBC RBC Hgb Hct MCV MCH MCHC RDW Plt Count Neut % (Auto) Lymph % (Auto) [place] % (Auto) Eos % (Auto) Baso % (Auto) Neut # (Auto) Lymph # (Auto) [place] # (Auto) Eos # (Auto) Baso # (Auto) PT INR APTT D-Dimer Sodium Potassium Chloride Carbon Dioxide BUN Creatinine Estimated GFR BUN/Creatinine Ratio Glucose Hemoglobin A1c 5.9 Calcium Total Bilirubin AST ALT Alkaline Phosphatase Total Creatine Kinase CK-MB (CK-2) CK-MB (CK-2) Rel Index Troponin I B-Natriuretic Peptide Total Protein Albumin Globulin Albumin/Globulin Ratio Triglycerides 201 H Cholesterol 255 H LDL Cholesterol, Calc 168 H VLDL Cholesterol 40 H HDL Cholesterol 47 TSH 4.70 H Free T4 1.15 Urine Color Urine Appearance Urine pH Ur Specific [place] Urine Protein Urine Glucose (UA) Urine Ketones Urine Occult Blood Urine Nitrate Urine Bilirubin Urine Urobilinogen Ur Leukocyte Esterase Urine RBC Urine WBC Ur Squamous Epith Cells Urine Bacteria Ur Culture Indicated? Chlamy pneumoniae PCR Adenovirus (PCR) B.parapertussis DNA PCR Coronavirus OC43 (PCR) Coronavirus HKU1 (PCR) Coronavirus 229E (PCR) Coronavirus NL63 (PCR) Human Metapneumovir PCR Influenza Type A (PCR) Influenza Type B (PCR) M. pneumoniae (PCR) Parainfluenza 1 (PCR) Parainfluenza 2 (PCR) Parainfluenza 3 (PCR) Parainfluenza 4 (PCR) RSV (PCR) Entero/Rhino (PCR) 06/14/18 06/14/18 01:22 01:22 WBC RBC Hgb Hct MCV MCH MCHC RDW Plt Count Neut % (Auto) Lymph % (Auto) [place] % (Auto) Eos % (Auto) Baso % (Auto) Neut # (Auto) Lymph # (Auto) [place] # (Auto) Eos # (Auto) Baso # (Auto) PT INR APTT D-Dimer Sodium Potassium Chloride Carbon Dioxide BUN Creatinine Estimated GFR BUN/Creatinine Ratio Glucose Hemoglobin A1c Calcium Total Bilirubin AST ALT Alkaline Phosphatase Total Creatine Kinase CK-MB (CK-2) CK-MB (CK-2) Rel Index Troponin I < 0.012 B-Natriuretic Peptide < 100 Total Protein Albumin Globulin Albumin/Globulin Ratio Triglycerides Cholesterol LDL Cholesterol, Calc VLDL Cholesterol HDL Cholesterol TSH Free T4 Urine Color Urine Appearance Urine pH Ur Specific [place] Urine Protein Urine Glucose (UA) Urine Ketones Urine Occult Blood Urine Nitrate Urine Bilirubin Urine Urobilinogen Ur Leukocyte Esterase Urine RBC Urine WBC Ur Squamous Epith Cells Urine Bacteria Ur Culture Indicated? Chlamy pneumoniae PCR Adenovirus (PCR) B.parapertussis DNA PCR Coronavirus OC43 (PCR) Coronavirus HKU1 (PCR) Coronavirus 229E (PCR) Coronavirus NL63 (PCR) Human Metapneumovir PCR Influenza Type A (PCR) Influenza Type B (PCR) M. pneumoniae (PCR) Parainfluenza 1 (PCR) Parainfluenza 2 (PCR) Parainfluenza 3 (PCR) Parainfluenza 4 (PCR) RSV (PCR) Entero/Rhino (PCR) Discharge Plan Discharge Plan Patient Disposition: Home Discharge comment: You are being discharged home. Please follow-up with Dr. Dodge at your scheduled appointment regarding your hospitalization. Your shoulder pain is likely musculoskeletal and due to muscle tension. Your EKG and cardiac enzymes are normal and show no evidence of heart attack or impending heart attack. Your cholesterol is elevated and you were prescribed atorvastatin 40 mg daily at bedtime and aspirin 81 mg daily (take with food). If you develop all over muscle aches stop atorvastatin immediately and follow-up with your PCP. You are prediabetic for which we recommend diet and exercise as discussed. The [place] [employer] recommend 150 minutes of moderate intensity exercise per week. Start with small obtainable goals and work your way up. You were provided a Mediterranean diet handout. Try to cut back on excessive sugar and carbohydrates. Please follow-up with Dr. Berg regarding your breast lump as this may be cancerous. Your shortness of breath is likely related to anxiety. Recommend increasing citalopram to 20 mg daily and in addition you were prescribed Buspar 7.5 mg twice daily to help treat anxiety. You would also benefit from cognitive behavioral therapy and counseling to implement better coping skills and to decrease stress and anxiety. Do not rec ommend NSAIDs chronically and Excedrin was discontinued. Also recommend you try to titrate down and possibly off narcotics. Discharge Med Rec/Prescriptions Prescriptions: New atorvastatin [Lipitor] 20 mg Tablet 40 mg PO BEDTIME Qty: 60 RF: 0 aspirin [Aspir-81] 81 mg tablet,delayed release (DR/EC) 81 mg PO DAILY Qty: 30 RF: 0 buspirone 7.5 mg tablet 7.5 mg PO BID Qty: 60 RF: 0 Continued omeprazole 20 mg Capsule,Delayed Release(Dr/Ec) 20 mg PO DAILY Qty: 0 RF: 0 hydromorphone [Dilaudid] 4 mg tablet 8 mg PO Q6H Qty: 240 RF: 0 multivitamin Tablet 1 tab PO DAILY RF: 0 Fish Oil 1 cap PO DAILY RF: 0 Stool Softener 1 cap PO QAM RF: 0 Vitamin B 1 tab PO DAILY RF: 0 Vitamin D3 1 cap PO DAILY RF: 0 estradiol [Estrace] 1 mg tablet 1 mg PO DAILY RF: 0 trazodone 100 mg tablet 200 mg PO BEDTIME RF: 0 Changed citalopram 10 mg tablet 20 mg PO DAILY Qty: 90 RF: 1 Discontinued Excedrin Extra Strength 250-250-65 mg Tablet 1 tab PO QAM RF: 0 Follow up/Referrals: Israel Dodge MD [Primary Care Provider] - 06/20/18 4:00 pm (appt:06/20 @ 4:[address] dodge [phone]) Provider Discharge Instructions Diet: Diet as Tolerated, Carb-consistent/Diabetic, Low-fat, Low-sodium and Low- cholesterol Activity: Activity as tolerated Visit Report/Discharge Packet Instructions: The Mediterranean Diet and Good Health, The DASH Diet, Generalized Anxiety Disorder, Anxiety and Panic Attacks (Alternative Therapy), DI for Anxiety -- Adult, Yoga May Help Reduce Anxiety and Stress, Buspirone (By mouth), Atorvastatin (By mouth) Discharge Data Primary Care Provider: Israel Dodge Attending Provider: Vinicius Ramos Admit Date/Time: 06/13/18 22:28 Discharges patient from system. Discharge Date/Time: 06/14/18 15:14 Quality VTE Deep Vein Thrombosis/Pulmonary Embolism Present on Admission: No
== END 2018-06-14 15:14 | disposition home or self-care (01) ==
LOC: ED 19:09 → AC 22:29
PROVIDERS: Admitting Provider Nurse Practitioner Gerontology; Emergency Provider Emergency Medicine; PCP Student in an Organized Health Care Education/Training Program; Visit Provider Nurse Practitioner Gerontology
DX: R07.9 Chest pain, unspecified (principal); G47.00 Insomnia, unspecified; G89.4 Chronic pain syndrome; N30.10 Interstitial cystitis (chronic) without hematuria; E11.9 Type 2 diabetes mellitus without complications; E78.5 Hyperlipidemia, unspecified; R03.0 Elevated blood-pressure reading, without diagnosis of hypertension; N63.20 Unspecified lump in the left breast, unspecified quadrant; M25.512 Pain in left shoulder; R06.09 Other forms of dyspnea; R51 Headache; Z85.89 Personal history of malignant neoplasm of other organs and systems; F11.20 Opioid dependence, uncomplicated
CPT/HCPCS: 36415; 36591; 71045; 80053; 80061; 81001; 82550; 83036; 83880; 84439; 84443; 84484; 85025; 85379; 85610; 85730; 87633; 93005; 93010; 93041; 93970; 96372; 99283; 99285; G0378; J1650

== ENCOUNTER → 2018-06-29 08:40 | Outpatient (CLI) | payer BC, SELFPAY ==
[2018-06-13 22:29] VITALS: BMI 34.9
--- NOTE | 2018-06-29 08:43 | DI.US.S_ITS ---
LIMITED ULTRASOUND OF RIGHT BREAST: 06/29/2018 CLINICAL: Palpable right breast lump. Comparison is made to exams dated: 06/29/2018 mammogram, 12/28/2017 ultrasound, and 12/28/2017 mammogram - [facility]. Color flow and real-time ultrasound of the right breast 1 o'clock and 10 o'clock regions were performed. There is 1.4 cm x 0.8 cm x 1 cm oval complicated cyst with a septated internal wall in the right breast at 1 o'clock posterior depth. This complicated cyst is of mixed echogenicity. This abnormality has not significantly changed. Color flow imaging demonstrates that there is no vascularity present. There also is a cluster of two debris containing cysts measuring 0.6 cm and 1 cm in the right breast superior lateral quadrant middle depth. No internal vascularity or posterior shadowing. This correlates to the palpable and mammographic finding. IMPRESSION: PROBABLY BENIGN The 1.4 cm x 0.8 cm x 1 cm oval complicated cyst in the right breast at 1 o'clock posterior depth is consistent with a complicated cyst, is stable, and is probably benign. The cluster of 6 mm to 1 cm cysts with debris in the right breast superior lateral quadrant middle depth is consistent with complicated cysts, correlates with palpable abnormality, and is probably benign. Follow-up mammogram and ultrasound in 6 months is recommended. Findings and recommendations conveyed to the patient. This exam was interpreted at Station ID: [id number]. Electronically Signed By: Kika ramos/:06/29/2018 11:02:43 letter sent: Followup Recommended Ultrasound BI-RADS: 3 Probably benign
--- NOTE | 2018-06-29 08:43 | DI.MG.S_ITS ---
UNILATERAL RIGHT DIGITAL DIAGNOSTIC MAMMOGRAM 3D/2D: 06/29/2018 CLINICAL: Right breast lump. Comparison is made to exams dated: 12/28/2017 ultrasound and 12/28/2017 mammogram - [facility]. There are scattered fibroglandular elements in right breast. There is a new 1.1 cm oval equal density asymmetry just below the skin surface in the right breast at 10 o'clock middle depth. This correlates as palpated. There also is a stable 1.4 cm asymmetry in the right breast middle depth superior region seen on the mediolateral oblique view only. No other significant masses or calcifications are seen in the breast. IMPRESSION: INCOMPLETE: NEEDS ADDITIONAL IMAGING EVALUATION The new 1.1 cm oval equal density asymmetry in the right breast at 10 o'clock middle depth is indeterminate. An ultrasound is recommended. The 1.4 cm asymmetry in the right breast middle depth superior region seen on the mediolateral oblique view only is stable. Confirmation with ultrasound is recommended. Ultrasound has been performed and will be reported separately. This exam was interpreted at Station ID: [id number]. NOTE: For mammograms, a report in lay terms will be sent to the patient. Approximately 15% of breast malignancies will not be visualized mammographically. In the management of a palpable breast mass, a negative mammogram must not discourage biopsy of a clinically suspicious lesion. Electronically Signed By: Kika ramso/:06/29/2018 10:51:33 ACR BI-RADS Category 0: Incomplete [id number]
== END ==
PROVIDERS: PCP Student in an Organized Health Care Education/Training Program; Visit Provider Student in an Organized Health Care Education/Training Program
DX: R92.8 Other abnormal and inconclusive findings on diagnostic imaging of breast (principal); N60.01 Solitary cyst of right breast
CPT/HCPCS: 76642; 77065; G0279

== ENCOUNTER 2018-10-07 13:38 | Emergency (ER) | payer BC, SELFPAY ==
[2018-06-13 22:29] VITALS: BMI 34.9
[2018-10-07 13:43] VITALS: BP 131/69; PULSE 62; RESP 24; TEMP 36.6; O2SAT 99
--- NOTE | 2018-10-07 13:50 | DI.RAD.S_ITS ---
PROCEDURE: XR CHEST 1V INDICATIONS: chest pain TECHNIQUE: One view of the chest was acquired. COMPARISON: [facility], CR, XR CHEST 1V, 06/13/2018, 15:59. FINDINGS: Surgical changes and devices: None. Lungs and pleura: Lungs are clear. No pleural effusions or pneumothorax. Mediastinum: Mediastinal contours appear normal. Heart size is normal. Bones and chest wall: No suspicious bony lesions. Overlying soft tissues appear unremarkable. IMPRESSION: No acute cardiopulmonary process is evident. Dictated by: Toney Jones M.D. on 10/07/2018 at 13:18 Approved by: Toney Jones M.D. on 10/07/2018 at 13:19
--- NOTE | 2018-10-07 13:50 | PC.NURSE ---
before ekg could be done pt stepped out of the room, said she felt closed in. took a moment and sat back down.
[2018-10-07 14:45] LABS: Add Manual Diff / Slide Review NO; Basophils Absolute Auto 0 /uL (0-100); Basophils Percent Auto 0.7 % (0-2); Eosinophils Absolute Auto 100 /uL (0-450); Eosinophils Percent Auto 1.5 % (2-4); Hematocrit 37.9 % (36-46); Hemoglobin 12.9 g/dL (12.0-16.0); Lymphocytes Absolute Auto 1200 /uL (1100-4500); Lymphocytes Percent Auto 19.7 % (25-40); Mean Corpuscular HGB Conc 34.1 % (30-36); Mean Corpuscular Hemoglobin 29.9 PG (26-34); Mean Corpuscular Volume 87.8 fL (80-100); Monocytes Absolute Auto 400 /uL (0-900); Monocytes Percent Auto 7.4 % (3-14); Neutrophils Absolute Auto 4300 /uL (1500-7000); Neutrophils Percent Auto 70.7 % (50-75); Platelet Count 272 X10^3/uL (150-400); Red Blood Cell Count 4.32 X10^6/uL (4.0-5.2); Red Cell Distribution Width 12.8 % (11.6-14.8); White Blood Cell Count 6.1 X10^3/uL (4.5-11.0)
[2018-10-07 14:54] LABS: Prothrombin Time 11.1 SECONDS (10.1-12.7)
[2018-10-07 14:56] LABS: PTT Partial Thromboplastin Tim 33 SECONDS (26.4-36.2)
[2018-10-07 15:07] LABS: Alanine Aminotransferase 26 IU/L (9-52); Albumin Globulin Ratio 1.4 (1.0-2.8); Alkaline Phosphatase 53 U/L (38-126); Aspartate Aminotransferase 23 IU/L (14-36); BUN Creatinine Ratio 25.6 (6-22); Bilirubin Total 0.3 mg/dL (0.2-1.3); Blood Urea Nitrogen 23 mg/dL (7-17); Calcium 8.9 mg/dL (8.4-10.2); Carbon Dioxide 26 mmol/L (22-32); Chloride 106 mmol/L (98-107); Creatine Kinase 83 U/L (30-135); Estimated Glomerular Filt Rate > 60.0 mL/min (>60); Globulin 2.9 g/dL (1.7-4.1); Glucose 118 mg/dL (80-110); HEMOLYSIS < 15 (0-50); Lipase 103 U/L (23-300); Potassium 4.1 mmol/L (3.4-5.1); Sodium 141 mmol/L (137-145); Total Protein 6.9 g/dL (6.3-8.2)
[2018-10-07 15:18] LABS: Troponin I < 0.012 ng/mL (0.01-0.034)
--- NOTE | 2018-10-07 15:40 | ED.CHESTPAIN ---
HPI - Chest Pain General Chief Complaint: Chest Pain Stated Complaint: presenting symptoms of a heart attack Time Seen by Provider: 10/07/18 15:27 Source: patient and family Mode of arrival: ambulatory Limitations: no limitations History of Present Illness HPI narrative: 63-year-old female former smoker with history of anxiety states she woke up this morning with severe panic and felt like she had pressure on her anterior chest making it hard for her to breathe. She denies any sharp or ongoing pressure-like pain. She does state that she has had increasing fatigue and shortness of breath with exertion over the past weeks to months. She denies any diaphoresis. She denies nausea, vomiting. She denies any radiation of her discomfort. She denies fever chills. She denies any injury. She denies any change in her diet. She does state that she recently had a change in her anti anxiety medications. She initially presented to the walk-in clinic but was sent here for a more in-depth evaluation of a possible cardiac cause MD complaint: chest pain Onset (ago): hour(s) Duration: constant Onset: during rest Pain location: substernal Severity: moderate Quality: heaviness Pain radiation: none Relieving factors: nothing Exacerbating factors: nothing Treatments prior to arrival chest pain: none Related Data Home Medications Medication Instructions Recorded Confirmed omeprazole 20 mg PO DAILY #0 07/31/12 10/07/18 Fish Oil 1 cap PO DAILY 06/13/18 10/07/18 Stool Softener 1 cap PO QAM 06/13/18 10/07/18 Vitamin B 1 tab PO DAILY 06/13/18 10/07/18 Vitamin D3 1 cap PO DAILY 06/13/18 10/07/18 multivitamin 1 tab PO DAILY 06/13/18 10/07/18 trazodone 200 mg PO BEDTIME 06/13/18 10/07/18 Previous Rx's Medication Instructions Recorded naloxone 2 mg/0.4 mL 2 mg IM ONCE #0.8 ml 06/20/18 injection,auto-injector estradiol 1 mg tablet 1 mg PO DAILY #90 tab 08/02/18 buspirone 7.5 mg tablet 7.5 mg PO BID #60 tab 09/06/18 oxycodone ER 15 mg tablet,crush 15 mg PO Q12H #14 tab 09/06/18 resistant,extended release 12 hr hydromorphone 4 mg tablet 8 mg PO Q6H #240 tab 09/18/18 Allergies Allergy/AdvReac Type Severity Reaction Status Date / Time tramadol [TRAMADOL] Allergy Severe bad Verified 10/07/18 13:09 headaches ketorolac [KETOROLAC] Allergy Mild redness at Verified 10/07/18 13:09 injection site Review of Systems Constitutional Denies chills, Denies fever(s), Denies lethargy and Denies weakness Eyes Denies change in vision, Denies eye discharge, Denies irritation and Denies loss of vision ENT Ears, Nose, Mouth, and Throat: Denies change in voice, Denies neck pain and Denies sore throat Cardiovascular Reports chest pain, Denies irregular heart rhythm, Denies lightheadedness, Denies palpitations, Reports dyspnea, Denies dyspnea on exertion and Denies orthopnea Respiratory Denies cough, Reports dyspnea, Denies dyspnea on exertion and Denies wheezing Gastrointestinal Gastrointestinal: Denies abdominal pain, Denies change in bowel habits, Denies diarrhea, Denies nausea and Denies vomiting Genitourinary Denies hematuria, Denies flank pain, Denies urinary incontinence and Denies urinary urgency Musculoskeletal Denies neck pain Integumentary/Breasts Denies pruritus, Denies erythema, Denies rash and Denies wounds Neurologic Denies confusion, Denies loss of vision and Denies weakness Psychiatric Denies anxiety, Denies confusion, Denies depression, Denies homicidal ideation and Denies suicidal ideation Endocrine Denies palpitations Hematologic/Lymphatic Denies easy bruising Allergic/Immunologic Denies wheezing PFSH Medical History Frequent UTI (Chronic 1991) Rosacea (Chronic ~1989) Stress headaches (Chronic) Tinnitus (Chronic 2015) Hearing loss (Resolved 2015) History of heavy periods (Resolved 1968) Interstitial cystitis (Resolved 1991) Oral cancer (Resolved 2015) Ovarian cyst (Resolved 1981) Painful menstrual periods (Resolved 1968) Plantar warts (Resolved 1974) Shoulder pain (Resolved 1999) Squamous cell carcinoma of head and neck (Resolved 2014) Surgical History Anesthesia (Resolved) Status post hysterectomy (Resolved 1993) Status post urological surgery (Resolved 2012) Family History (Updated 06/14/18 @ 02:33 by MARICRUZ Dos Santos) Father Hypertension Alcoholism Throat cancer Diabetes mellitus Mother Heart disease Hypertension Emphysema of lung Cancer Son Pneumonia Heroin addiction Social History household members: spouse and children Smoking Status: Former smoker Family History Father Hypertension Alcoholism Throat cancer Diabetes mellitus Mother Heart disease Hypertension Emphysema of lung Cancer Son Pneumonia Heroin addiction Social History household members: spouse and children Smoking Status: Former smoker Exam Narrative Exam Narrative: GENERAL: 63-year-old female appears stated age, This is a well-nourished, well-developed patient, in mild distress. HEAD: Atraumatic. Normocephalic. No temporal or scalp tenderness. EYES: Pupils equal round and reactive. Extraocular motions intact. No scleral icterus. No injection or drainage. ENT: Nose without bleeding, purulent drainage or septal hematoma. Throat without erythema, tonsillar hypertrophy or exudate. Uvula midline. Airway patent. NECK: Trachea midline. No JVD or lymphadenopathy. Supple, nontender, no meningeal signs. CARDIOVASCULAR: Regular rate and rhythm without murmurs, gallops, or rubs. RESPIRATORY: Clear to auscultation. Breath sounds equal bilaterally. No wheezes, rales, or rhonchi. GASTROINTESTINAL: Abdomen soft, non-tender, nondistended. No hepato-splenomegaly, or palpable masses. No guarding. EXTREMITIES: No clubbing, cyanosis, or edema. No joint tenderness, effusion, or edema noted. BACK: Nontender without deformity or crepitance. No flank tenderness. NEURO: AOx3. SKIN: No rash or erythema. Initial Vital Signs Initial Vital Signs: Vital Signs Temperature 97.8 F 10/07/18 13:43 Pulse Rate 62 10/07/18 13:43 Respiratory Rate 24 10/07/18 13:43 Blood Pressure 131/69 10/07/18 13:43 Pulse Oximetry 99 10/07/18 13:43 Scores HEART Score Heart Score history: Slightly Suspicious Heart Score EKG: Normal Heart Score Age: 45-64 years old Heart Score risk factors: No known risk factors Heart Score troponin: < or = to normal limit Heart Score Total: 1 Course Orders Ordered: Discontinued Medications Lorazepam (Ativan) 1 mg PO NOW ONE Stop: 10/07/18 17:30 Last Admin: 10/07/18 17:34 Dose: 1 mg Vital Signs - 8 hr 10/07/18 13:43 Temperature 97.8 F Pulse Rate 62 Respiratory Rate 24 Blood Pressure 131/69 Pulse Oximetry 99 MDM - Chest Pain Lab Data Result diagrams: 10/07/18 14:15 10/07/18 14:15 Lab Results 10/07/18 10/07/18 10/07/18 Range/Units 14:15 14:15 14:15 WBC 6.1 (4.5-11.0) X10^3/uL RBC 4.32 (4.0-5.2) X10^6/uL Hgb 12.9 (12.0-16.0) g/dL Hct 37.9 (36-46) % MCV 87.8 (80-100) fL MCH 29.9 (26-34) PG MCHC 34.1 (30-36) % RDW 12.8 (11.6-14.8) % Plt Count 272 (150-400) X10^3/uL Neut % (Auto) 70.7 (50-75) % Lymph % (Auto) 19.7 L (25-40) % [place] % (Auto) 7.4 (3-14) % Eos % (Auto) 1.5 L (2-4) % Baso % (Auto) 0.7 (0-2) % Neut # (Auto) 4300 (3827-4946) /uL Lymph # (Auto) 1200 (4775-8331) /uL [place] # (Auto) 400 (0-900) /uL Eos # (Auto) 100 (0-450) /uL Baso # (Auto) 0 (0-100) /uL PT 11.1 (10.1-12.7) SECONDS INR 1.0 (0.9-1.3) APTT 33 (26.4-36.2) SECONDS D-Dimer (<230) ng/mL Sodium 141 (137-145) mmol/L Potassium 4.1 (3.4-5.1) mmol/L Chloride 106 (98-107) mmol/L Carbon Dioxide 26 (22-32) mmol/L BUN 23 H (7-17) mg/dL Creatinine 0.90 (0.52-1.04) mg/dL Estimated GFR > 60.0 (>60) mL/min BUN/Creatinine Ratio 25.6 H (6-22) Glucose 118 H (80-110) mg/dL Calcium 8.9 (8.4-10.2) mg/dL Total Bilirubin 0.3 (0.2-1.3) mg/dL AST 23 (14-36) IU/L ALT 26 (9-52) IU/L Alkaline Phosphatase 53 (38-126) U/L Total Creatine Kinase 83 (30-135) U/L CK-MB (CK-2) TNP CK-MB (CK-2) Rel Index TNP Troponin I < 0.012 (0.01-0.034) ng/mL Total Protein 6.9 (6.3-8.2) g/dL Albumin 4.0 (3.5-5.0) g/dL Globulin 2.9 (1.7-4.1) g/dL Albumin/Globulin Ratio 1.4 (1.0-2.8) Lipase 103 (23-300) U/L 10/07/18 10/07/18 Range/Units 14:15 16:12 WBC (4.5-11.0) X10^3/uL RBC (4.0-5.2) X10^6/uL Hgb (12.0-16.0) g/dL Hct (36-46) % MCV (80-100) fL MCH (26-34) PG MCHC (30-36) % RDW (11.6-14.8) % Plt Count (150-400) X10^3/uL Neut % (Auto) (50-75) % Lymph % (Auto) (25-40) % [place] % (Auto) (3-14) % Eos % (Auto) (2-4) % Baso % (Auto) (0-2) % Neut # (Auto) (9127-9040) /uL Lymph # (Auto) (3013-6903) /uL [place] # (Auto) (0-900) /uL Eos # (Auto) (0-450) /uL Baso # (Auto) (0-100) /uL PT (10.1-12.7) SECONDS INR (0.9-1.3) APTT (26.4-36.2) SECONDS D-Dimer < 200 (<230) ng/mL Sodium (137-145) mmol/L Potassium (3.4-5.1) mmol/L Chloride (98-107) mmol/L Carbon Dioxide (22-32) mmol/L BUN (7-17) mg/dL Creatinine (0.52-1.04) mg/dL Estimated GFR (>60) mL/min BUN/Creatinine Ratio (6-22) Glucose (80-110) mg/dL Calcium (8.4-10.2) mg/dL Total Bilirubin (0.2-1.3) mg/dL AST (14-36) IU/L ALT (9-52) IU/L Alkaline Phosphatase (38-126) U/L Total Creatine Kinase (30-135) U/L CK-MB (CK-2) CK-MB (CK-2) Rel Index Troponin I < 0.012 (0.01-0.034) ng/mL Total Protein (6.3-8.2) g/dL Albumin (3.5-5.0) g/dL Globulin (1.7-4.1) g/dL Albumin/Globulin Ratio (1.0-2.8) Lipase (23-300) U/L Urine Dip Bedside Urine Glucose Negative Bedside Urine Bilirubin + 1 Bedside Urine Ketone - Negative Urine Specific [place] 1.030 Bedside Urine Occult Blood - Negative Bedside Urine pH 6.0 Bedside Urine Protein +/- 15 Bedside Urine Urobilinogen +/- 1mg Bedside Urine Nitrite - Negative Bedside Urine Leukocytes - Negative Esterase Imaging Data Chest x-ray: Radiologist's impression: Oliver Shay Sandhya 63 F [address] [id number] XRay Report Signed Patient: Oliver Shay JMR#: [id number] : 1955cct:[id number] Age/Sex: 63 / FDate of Service: 10/07/18 Loc: ED Accession Number: [id number] Procedure: XR chest 1V Ordering Provider: Moises Patel D.O. PROCEDURE: XR CHEST 1V INDICATIONS: chest pain TECHNIQUE: One view of the chest was acquired. COMPARISON: [facility], CR, XR CHEST 1V, 06/13/2018, 15:59. FINDINGS: Surgical changes and devices: None. Lungs and pleura: Lungs are clear. No pleural effusions or pneumothorax. Mediastinum: Mediastinal contours appear normal. Heart size is normal. Bones and chest wall: No suspicious bony lesions. Overlying soft tissues appear unremarkable. IMPRESSION: No acute cardiopulmonary process is evident. Dictated by: Toney Jones M.D. on 10/07/2018 at 13:18 MDM Narrative Medical decision making narrative: Multiple etiologies for patient's symptoms considered including: [Cardiac ischemia versus pulmonary embolism versus pneumonia versus anxiety versus electrolyte abnormality versus anemia versus other] Patient's symptoms improved or duration of stay with above-stated therapies. Findings and discharge diagnosis discussed with patient/family followed by verbalization of understanding Return precautions discussed with patient/family whom verbalize understanding. Discharge Plan Departure Patient Disposition: Home Clinical Impression: Atypical chest pain Discharge Date/Time: 10/07/18 17:36 Interventions: ED Discharge Assessment Last Done: 10/07/18 17:31 Instructions: DI for Atypical Chest Pain Activity Restrictions/Additional Instructions: *You have been diagnosed with [atypical chest pain. Heart attack, blood clot, and other serious diagnoses considered but thought less likely given her story, physical exam, labs, EKG and other.] *What to do: *Take medications as directed *Follow up with your primary care provider in 2-3 days, call for an appointment. Let them know you were seen in the Emergency Department and that we ask that you be seen in follow up *Return to ER if you should have any new, worsening or concerning symptoms Prescriptions: No Action omeprazole 20 mg Capsule,Delayed Release(Dr/Ec) 20 mg PO DAILY Qty: 0 RF: 0 estradiol [Estrace] 1 mg tablet 1 mg PO DAILY Qty: 90 RF: 1 hydromorphone [Dilaudid] 4 mg tablet 8 mg PO Q6H Qty: 240 RF: 0 naloxone 2 mg/0.4 mL auto-injector 2 mg IM ONCE Qty: 0.8 RF: 0 oxycodone [OxyContin] 15 mg tablet,oral only,ext.rel.12 hr 15 mg PO Q12H Qty: 14 RF: 0 buspirone 7.5 mg tablet 7.5 mg PO BID Qty: 60 RF: 2 multivitamin Tablet 1 tab PO DAILY RF: 0 Fish Oil 1 cap PO DAILY RF: 0 Stool Softener 1 cap PO QAM RF: 0 Vitamin B 1 tab PO DAILY RF: 0 Vitamin D3 1 cap PO DAILY RF: 0 trazodone 100 mg tablet 200 mg PO BEDTIME RF: 0 Referrals: Israel Dodge MD [Primary Care Provider] -
--- NOTE | 2018-10-07 15:53 | PC.NURSE ---
Pt states waking up this morning with pressure on chest. STates was unable to sit still. has multiple life stressers going on at this time. Reports when she starts to calm down, she immediately ramps up again. Does not want to be in an enclosed room. Refused cardiac monitoring.
[2018-10-07 16:44] LABS: Troponin I < 0.012 ng/mL (0.01-0.034)
[2018-10-07 16:48] LABS: D Dimer < 200 ng/mL (<230)
--- NOTE | 2018-10-07 17:07 | ED_ITS ---
HPI - Chest Pain General Chief Complaint: Chest Pain Stated Complaint: presenting symptoms of a heart attack Time Seen by Provider: 10/07/18 15:27 Source: patient and family Mode of arrival: ambulatory Limitations: no limitations History of Present Illness HPI narrative: 63-year-old female former smoker with history of anxiety states she woke up this morning with severe panic and felt like she had pressure on her anterior chest making it hard for her to breathe. She denies any sharp or ongoing pressure-like pain. She does state that she has had increasing fatigue and shortness of breath with exertion over the past weeks to months. She denies any diaphoresis. She denies nausea, vomiting. She denies any radiation of her discomfort. She denies fever chills. She denies any injury. She denies any change in her diet. She does state that she recently had a change in her anti anxiety medications. She initially presented to the walk-in clinic but was sent here for a more in-depth evaluation of a possible cardiac cause MD complaint: chest pain Onset (ago): hour(s) Duration: constant Onset: during rest Pain location: substernal Severity: moderate Quality: heaviness Pain radiation: none Relieving factors: nothing Exacerbating factors: nothing Treatments prior to arrival chest pain: none Related Data Home Medications Medication Instructions Recorded Confirmed omeprazole 20 mg PO DAILY #0 07/31/12 10/07/18 Fish Oil 1 cap PO DAILY 06/13/18 10/07/18 Stool Softener 1 cap PO QAM 06/13/18 10/07/18 Vitamin B 1 tab PO DAILY 06/13/18 10/07/18 Vitamin D3 1 cap PO DAILY 06/13/18 10/07/18 multivitamin 1 tab PO DAILY 06/13/18 10/07/18 trazodone 200 mg PO BEDTIME 06/13/18 10/07/18 Previous Rx's Medication Instructions Recorded naloxone 2 mg/0.4 mL 2 mg IM ONCE #0.8 ml 06/20/18 injection,auto-injector estradiol 1 mg tablet 1 mg PO DAILY #90 tab 08/02/18 buspirone 7.5 mg tablet 7.5 mg PO BID #60 tab 09/06/18 oxycodone ER 15 mg tablet,crush 15 mg PO Q12H #14 tab 09/06/18 resistant,extended release 12 hr hydromorphone 4 mg tablet 8 mg PO Q6H #240 tab 09/18/18 Allergies Allergy/AdvReac Type Severity Reaction Status Date / Time tramadol [TRAMADOL] Allergy Severe bad Verified 10/07/18 13:09 headaches ketorolac [KETOROLAC] Allergy Mild redness at Verified 10/07/18 13:09 injection site Review of Systems Constitutional Denies chills, Denies fever(s), Denies lethargy and Denies weakness Eyes Denies change in vision, Denies eye discharge, Denies irritation and Denies loss of vision ENT Ears, Nose, Mouth, and Throat: Denies change in voice, Denies neck pain and Denies sore throat Cardiovascular Reports chest pain, Denies irregular heart rhythm, Denies lightheadedness, Denies palpitations, Reports dyspnea, Denies dyspnea on exertion and Denies orthopnea Respiratory Denies cough, Reports dyspnea, Denies dyspnea on exertion and Denies wheezing Gastrointestinal Gastrointestinal: Denies abdominal pain, Denies change in bowel habits, Denies diarrhea, Denies nausea and Denies vomiting Genitourinary Denies hematuria, Denies flank pain, Denies urinary incontinence and Denies urinary urgency Musculoskeletal Denies neck pain Integumentary/Breasts Denies pruritus, Denies erythema, Denies rash and Denies wounds Neurologic Denies confusion, Denies loss of vision and Denies weakness Psychiatric Denies anxiety, Denies confusion, Denies depression, Denies homicidal ideation and Denies suicidal ideation Endocrine Denies palpitations Hematologic/Lymphatic Denies easy bruising Allergic/Immunologic Denies wheezing PFSH Medical History Frequent UTI (Chronic 1991) Rosacea (Chronic ~1989) Stress headaches (Chronic) Tinnitus (Chronic 2015) Hearing loss (Resolved 2015) History of heavy periods (Resolved 1968) Interstitial cystitis (Resolved 1991) Oral cancer (Resolved 2015) Ovarian cyst (Resolved 1981) Painful menstrual periods (Resolved 1968) Plantar warts (Resolved 1974) Shoulder pain (Resolved 1999) Squamous cell carcinoma of head and neck (Resolved 2014) Surgical History Anesthesia (Resolved) Status post hysterectomy (Resolved 1993) Status post urological surgery (Resolved 2012) Family History (Updated 06/14/18 @ 02:33 by MARICRUZ Dos Santos) Father Hypertension Alcoholism Throat cancer Diabetes mellitus Mother Heart disease Hypertension Emphysema of lung Cancer Son Pneumonia Heroin addiction Social History household members: spouse and children Smoking Status: Former smoker Family History Father Hypertension Alcoholism Throat cancer Diabetes mellitus Mother Heart disease Hypertension Emphysema of lung Cancer Son Pneumonia Heroin addiction Social History household members: spouse and children Smoking Status: Former smoker Exam Narrative Exam Narrative: GENERAL: 63-year-old female appears stated age, This is a well- nourished, well-developed patient, in mild distress. HEAD: Atraumatic. Normocephalic. No temporal or scalp tenderness. EYES: Pupils equal round and reactive. Extraocular motions intact. No scleral ic terus. No injection or drainage. ENT: Nose without bleeding, purulent drainage or septal hematoma. Throat without erythema, tonsillar hypertrophy or exudate. Uvula midline. Airway patent. NECK: Trachea midline. No JVD or lymphadenopathy. Supple, nontender, no meningeal signs. CARDIOVASCULAR: Regular rate and rhythm without murmurs, gallops, or rubs. RESPIRATORY: Clear to auscultation. Breath sounds equal bilaterally. No wheezes, rales, or rhonchi. GASTROINTESTINAL: Abdomen soft, non-tender, nondistended. No hepato- splenomegaly, or palpable masses. No guarding. EXTREMITIES: No clubbing, cyanosis, or edema. No joint tenderness, effusion, or edema noted. BACK: Nontender without deformity or crepitance. No flank tenderness. NEURO: AOx3. SKIN: No rash or erythema. Initial Vital Signs Initial Vital Signs: Vital Signs Temperature 97.8 F 10/07/18 13:43 Pulse Rate 62 10/07/18 13:43 Respiratory Rate 24 10/07/18 13:43 Blood Pressure 131/69 10/07/18 13:43 Pulse Oximetry 99 10/07/18 13:43 Scores HEART Score Heart Score history: Slightly Suspicious Heart Score EKG: Normal Heart Score Age: 45-64 years old Heart Score risk factors: No known risk factors Heart Score troponin: < or = to normal limit Heart Score Total: 1 Course Orders Ordered: Discontinued Medications Lorazepam (Ativan) 1 mg PO NOW ONE Stop: 10/07/18 17:30 Last Admin: 10/07/18 17:34 Dose: 1 mg Vital Signs - 8 hr 10/07/18 13:43 Temperature 97.8 F Pulse Rate 62 Respiratory Rate 24 Blood Pressure 131/69 Pulse Oximetry 99 MDM - Chest Pain Lab Data Result diagrams: 10/07/18 14:15 10/07/18 14:15 Lab Results 10/07/18 10/07/18 10/07/18 Range/Units 14:15 14:15 14:15 WBC 6.1 (4.5-11.0) X10^3/uL RBC 4.32 (4.0-5.2) X10^6/uL Hgb 12.9 (12.0-16.0) g/dL Hct 37.9 (36-46) % MCV 87.8 (80-100) fL MCH 29.9 (26-34) PG MCHC 34.1 (30-36) % RDW 12.8 (11.6-14.8) % Plt Count 272 (150-400) X10^3/uL Neut % (Auto) 70.7 (50-75) % Lymph % (Auto) 19.7 L (25-40) % Moca % (Auto) 7.4 (3-14) % Eos % (Auto) 1.5 L (2-4) % Baso % (Auto) 0.7 (0-2) % Neut # (Auto) 4300 (8648-6575) /uL Lymph # (Auto) 1200 (0434-1566) /uL Moca # (Auto) 400 (0-900) /uL Eos # (Auto) 100 (0-450) /uL Baso # (Auto) 0 (0-100) /uL PT 11.1 (10.1-12.7) SECONDS INR 1.0 (0.9-1.3) APTT 33 (26.4-36.2) SECONDS D-Dimer (<230) ng/mL Sodium 141 (137-145) mmol/L Potassium 4.1 (3.4-5.1) mmol/L Chloride 106 (98-107) mmol/L Carbon Dioxide 26 (22-32) mmol/L BUN 23 H (7-17) mg/dL Creatinine 0.90 (0.52-1.04) mg/dL Estimated GFR > 60.0 (>60) mL/min BUN/Creatinine Ratio 25.6 H (6-22) Glucose 118 H (80-110) mg/dL Calcium 8.9 (8.4-10.2) mg/dL Total Bilirubin 0.3 (0.2-1.3) mg/dL AST 23 (14-36) IU/L ALT 26 (9-52) IU/L Alkaline Phosphatase 53 (38-126) U/L Total Creatine Kinase 83 (30-135) U/L CK-MB (CK-2) TNP CK-MB (CK-2) Rel Index TNP Troponin I < 0.012 (0.01-0.034) ng/mL Total Protein 6.9 (6.3-8.2) g/dL Albumin 4.0 (3.5-5.0) g/dL Globulin 2.9 (1.7-4.1) g/dL Albumin/Globulin Ratio 1.4 (1.0-2.8) Lipase 103 (23-300) U/L 10/07/18 10/07/18 Range/Units 14:15 16:12 WBC (4.5-11.0) X10^3/uL RBC (4.0-5.2) X10^6/uL Hgb (12.0-16.0) g/dL Hct (36-46) % MCV (80-100) fL MCH (26-34) PG MCHC (30-36) % RDW (11.6-14.8) % Plt Count (150-400) X10^3/uL Neut % (Auto) (50-75) % Lymph % (Auto) (25-40) % Moca % (Auto) (3-14) % Eos % (Auto) (2-4) % Baso % (Auto) (0-2) % Neut # (Auto) (3655-6424) /uL Lymph # (Auto) (5732-3526) /uL Moca # (Auto) (0-900) /uL Eos # (Auto) (0-450) /uL Baso # (Auto) (0-100) /uL PT (10.1-12.7) SECONDS INR (0.9-1.3) APTT (26.4-36.2) SECONDS D-Dimer < 200 (<230) ng/mL Sodium (137-145) mmol/L Potassium (3.4-5.1) mmol/L Chloride (98-107) mmol/L Carbon Dioxide (22-32) mmol/L BUN (7-17) mg/dL Creatinine (0.52-1.04) mg/dL Estimated GFR (>60) mL/min BUN/Creatinine Ratio (6-22) Glucose (80-110) mg/dL Calcium (8.4-10.2) mg/dL Total Bilirubin (0.2-1.3) mg/dL AST (14-36) IU/L ALT (9-52) IU/L Alkaline Phosphatase (38-126) U/L Total Creatine Kinase (30-135) U/L CK-MB (CK-2) CK-MB (CK-2) Rel Index Troponin I < 0.012 (0.01-0.034) ng/mL Total Protein (6.3-8.2) g/dL Albumin (3.5-5.0) g/dL Globulin (1.7-4.1) g/dL Albumin/Globulin Ratio (1.0-2.8) Lipase (23-300) U/L Urine Dip Bedside Urine Glucose Negative Bedside Urine Bilirubin + 1 Bedside Urine Ketone - Negative Urine Specific [place] 1.030 Bedside Urine Occult Blood - Negative Bedside Urine pH 6.0 Bedside Urine Protein +/- 15 Bedside Urine Urobilinogen +/- 1mg Bedside Urine Nitrite - Negative Bedside Urine Leukocytes - Negative Esterase Imaging Data Chest x-ray: Radiologist's impression: Pantera Shaygenoveva Arthur 63 F [address] [address] XRay Report Signed Patient: Oliver Shay R#: [id number] : 1955cct:[id number] Age/Sex: 63 / FDate of Service: 10/07/18 Loc: ED Accession Number: [id number] Procedure: XR chest 1V Ordering Provider: Moises Patel D.O. PROCEDURE: XR CHEST 1V INDICATIONS: chest pain TECHNIQUE: One view of the chest was acquired. COMPARISON: [facility], CR, XR CHEST 1V, 06/13/2018, 15:59. FINDINGS: Surgical changes and devices: None. Lungs and pleura: Lungs are clear. No pleural effusions or pneumothorax. Mediastinum: Mediastinal contours appear normal. Heart size is normal. Bones and chest wall: No suspicious bony lesions. Overlying soft tissues appear unremarkable. IMPRESSION: No acute cardiopulmonary process is evident. Dictated by: Toney Jones M.D. on 10/07/2018 at 13:18 MDM Narrative Medical decision making narrative: Multiple etiologies for patient's symptoms considered including: [Cardiac ischemia versus pulmonary embolism versus pneumonia versus anxiety versus electrolyte abnormality versus anemia versus other] Patient's symptoms improved or duration of stay with above-stated therapies. Findings and discharge diagnosis discussed with patient/family followed by verbalization of understanding Return precautions discussed with patient/family whom verbalize understanding. Discharge Plan Departure Patient Disposition: Home Clinical Impression: Atypical chest pain Discharge Date/Time: 10/07/18 17:36 Interventions: ED Discharge Assessment Last Done: 10/07/18 17:31 Instructions: DI for Atypical Chest Pain Activity Restrictions/Additional Instructions: *You have been diagnosed with [atypical chest pain. Heart attack, blood clot, and other serious diagnoses considered but thought less likely given her story, physical exam, labs, EKG and other.] *What to do: *Take medications as directed *Follow up with your primary care provider in 2-3 days, call for an appointment. Let them know you were seen in the Emergency Department and that we ask that you be seen in follow up *Return to ER if you should have any new, worsening or concerning symptoms Prescriptions: No Action omeprazole 20 mg Capsule,Delayed Release(Dr/Ec) 20 mg PO DAILY Qty: 0 RF: 0 estradiol [Estrace] 1 mg tablet 1 mg PO DAILY Qty: 90 RF: 1 hydromorphone [Dilaudid] 4 mg tablet 8 mg PO Q6H Qty: 240 RF: 0 naloxone 2 mg/0.4 mL auto-injector 2 mg IM ONCE Qty: 0.8 RF: 0 oxycodone [OxyContin] 15 mg tablet,oral only,ext.rel.12 hr 15 mg PO Q12H Qty: 14 RF: 0 buspirone 7.5 mg tablet 7.5 mg PO BID Qty: 60 RF: 2 multivitamin Tablet 1 tab PO DAILY RF: 0 Fish Oil 1 cap PO DAILY RF: 0 Stool Softener 1 cap PO QAM RF: 0 Vitamin B 1 tab PO DAILY RF: 0 Vitamin D3 1 cap PO DAILY RF: 0 trazodone 100 mg tablet 200 mg PO BEDTIME RF: 0 Referrals: Israel Dodge MD [Primary Care Provider] -
[2018-10-07 17:31] VITALS: BP 137/64; PULSE 67; RESP 16; O2SAT 100
[2018-10-07] MEDS: LORazepam 0.5 MG TABLET 1 MG PO (17:34)
== END 2018-10-07 17:36 | disposition home or self-care (01) ==
PROVIDERS: Emergency Provider Emergency Medicine; PCP Student in an Organized Health Care Education/Training Program
DX: R07.89 Other chest pain (principal)
CPT/HCPCS: 36415; 71045; 80053; 81003; 82550; 83690; 84484; 85025; 85379; 85610; 85730; 93005; 93010; 99282; 99285

== ENCOUNTER → 2020-12-25 16:38 | Outpatient (CLI) | payer OTHER, SELFPAY ==
[2019-01-26 14:19] VITALS: BMI 34.9
--- NOTE | 2020-12-25 16:43 | DI.MG.S_ITS ---
BILATERAL DIGITAL SCREENING MAMMOGRAM 3D/2D WITH CAD: 12/25/2020 Comparison is made to exams dated: 07/17/2018 ultrasound biopsy, 07/17/2018 mammogram - [facility], and 12/28/2017 mammogram - [facility]. There are scattered fibroglandular elements in both breasts. Current study was also evaluated with a Computer Aided Detection (CAD) system. No significant masses, calcifications, or other findings are seen in either breast. There has been no significant interval change. IMPRESSION: NEGATIVE There is no mammographic evidence of malignancy. A 1 year screening mammogram is recommended. This exam was interpreted at Station ID: [id number]. NOTE: For mammograms, a report in lay terms will be sent to the patient. Approximately 15% of breast malignancies will not be visualized mammographically. In the management of a palpable breast mass, a negative mammogram must not discourage biopsy of a clinically suspicious lesion. Electronically Signed By: Blue Lu M.D. [facility] [place]12/26/[place] 08:04:38 letter sent: Normal Exam ACR BI-RADS Category 1: Negative [id number]
== END ==
PROVIDERS: PCP Student in an Organized Health Care Education/Training Program; Referring Provider Student in an Organized Health Care Education/Training Program; Visit Provider Student in an Organized Health Care Education/Training Program
DX: Z12.31 Encounter for screening mammogram for malignant neoplasm of breast (principal)
CPT/HCPCS: 77063; 77067

== ENCOUNTER → 2021-12-16 11:14 | Outpatient (CLI) | payer OTHER, SELFPAY ==
[2019-01-26 14:19] VITALS: BMI 34.9
[2021-12-16 12:04] LABS: Hemoglobin A1C% w Est Avg Glu 6.6 % (4.0-6.0)
[2021-12-16 13:43] LABS: BUN Creatinine Ratio 17.6 (6-22); Blood Urea Nitrogen 16 mg/dL (7-17); Calcium 9.3 mg/dL (8.4-10.2); Carbon Dioxide 26 mmol/L (22-32); Chloride 103 mmol/L (98-107); Estimated Glomerular Filt Rate > 60 mL/min (>60); Glucose 119 mg/dL (80-110); HEMOLYSIS < 15 (0-50); Sodium 139 mmol/L (137-145)
== END ==
PROVIDERS: PCP Student in an Organized Health Care Education/Training Program; Referring Provider Student in an Organized Health Care Education/Training Program; Visit Provider Student in an Organized Health Care Education/Training Program
DX: R73.03 Prediabetes (principal)
CPT/HCPCS: 36415; 80048; 83036

== ENCOUNTER → 2022-01-06 08:38 | Outpatient (CLI) | payer OTHER, SELFPAY ==
[2019-01-26 14:19] VITALS: BMI 34.9
--- NOTE | 2022-01-06 | DI.US.S_ITS ---
ULTRASOUND OF RIGHT BREAST: 01/06/2022 CLINICAL: Focal right breast pain. Focal palpable lump right breast. Comparison is made to exams dated: 01/06/2022 mammogram, 12/25/2020 mammogram - [facility], 07/17/2018 ultrasound biopsy, 07/17/2018 mammogram - [facility], 06/29/2018 ultrasound, and 06/29/2018 mammogram - [facility]. Color flow and real-time ultrasound of the right breast were performed. Zepeda scale images of the real-time examination were reviewed. There is a skin-based complicated cyst measuring 6 x 5 x 6mm on the right breast at 3 o'clock 18 cm from the nipple at the site of a palpable abnormality. IMPRESSION: BENIGN There is no sonographic evidence of breast malignancy. There is no abnormality seen in the right breast to correspond with the area of clinical concern in the lower inner quadrant which likely represents normal fibroglandular tissue. There is a skin-based complicated cyst on the right breast at 3 o'clock 18 cm from the nipple at the site of a palpable abnormality, possibly a sebaceous cyst. Clinical followup and evaluation are recommended. Return to annual mammogram screening schedule is recommended. This exam was interpreted at Station ID: [id number]. Electronically Signed By: Kenny Archer M.D. lc/:01/06/2022 10:15:16 letter sent: Clinical Evaluation Ultrasound BI-RADS: 2 Benign
--- NOTE | 2022-01-06 08:39 | DI.MG.S_ITS ---
BILATERAL DIGITAL DIAGNOSTIC MAMMOGRAM 3D/2D: 01/06/2022 CLINICAL: Mastodynia. Comparison is made to exams dated: 12/25/2020 mammogram and 12/28/2017 mammogram - [facility]. There are scattered areas of fibroglandular density in both breasts (category b / 25%-50% glandular tissue). No significant masses, calcifications, or other findings are seen in either breast. IMPRESSION: INCOMPLETE: NEEDS ADDITIONAL IMAGING EVALUATION There is no abnormality seen in the right breast to correspond with the area of clinical concern and pain in the lower inner quadrant, however, ultrasound is recommended. There is no abnormality seen in the left breast to correspond with the diffuse pain which likely represents normal fibroglandular tissue. Based on the Tyrer Cuzick model (a risk assessment model) the patient's lifetime risk is 5.9% and her 10 year risk is 2.7%. According to the ACR, ACS, and NCCN guidelines, an annual breast MRI exam along with mammogram is recommended if the patient's lifetime risk is 20% or greater. This exam was interpreted at Station ID: [id number]. NOTE: For mammograms, a report in lay terms will be sent to the patient. Approximately 15% of breast malignancies will not be visualized mammographically. In the management of a palpable breast mass, a negative mammogram must not discourage biopsy of a clinically suspicious lesion. Electronically Signed By: Kenny Archer M.D. lc/:01/06/2022 10:11:52 ACR BI-RADS Category 0: Incomplete [id number]
== END ==
PROVIDERS: PCP Student in an Organized Health Care Education/Training Program; Referring Provider Student in an Organized Health Care Education/Training Program; Visit Provider Student in an Organized Health Care Education/Training Program
DX: N64.4 Mastodynia (principal); R92.2 Inconclusive mammogram; N60.01 Solitary cyst of right breast
CPT/HCPCS: 76642; 77066; G0279

== ENCOUNTER 2022-02-15 12:53 | Emergency (ER) | payer OTHER, SELFPAY ==
[2019-01-26 14:19] VITALS: BMI 34.9
[2022-02-15] VITALS (8 sets, daily range): BP systolic 141–165; BP diastolic 73–97; PULSE 69–91; RESP 16–48; TEMP 36.3; O2SAT 85–98; BMI 40.0
--- NOTE | 2022-02-15 13:11 | DI.RAD.S_ITS ---
PROCEDURE: XR ACUTE ABDOMEN SERIES INDICATIONS: no bm x 2 weeks TECHNIQUE: One view chest and two views of the abdomen were acquired. COMPARISON: None. FINDINGS: Surgical changes and devices: Right-sided pain management device is seen with lead projecting in left lower pelvis. Chest: Lungs are clear. Heart size is normal. No pleural effusions. No pneumoperitoneum. Abdomen: Bowel gas pattern is nonobstructive. Moderate fecal stasis in the colon is seen. No suspicious calcifications. Visualized solid organ contours appear normal. Bones: No suspicious bony lesions. IMPRESSION: 1. Urwr-bd-ixtxccaw constipation. No gross free air. 2. No acute cardiopulmonary pathology. Dictated by: Barrett Casillas M.D. on 02/15/2022 at 14:47 Approved by: Barrett Casillas M.D. on 02/15/2022 at 14:47
[2022-02-15 17:38] LABS: Add Manual Diff / Slide Review NO; Basophils Absolute Auto 100 /uL (0-100); Basophils Percent Auto 0.6 % (0-2); Eosinophils Absolute Auto 300 /uL (0-450); Eosinophils Percent Auto 2.5 % (2-4); Hematocrit 42.2 % (36-46); Hemoglobin 14.1 g/dL (12.0-16.0); Lymphocytes Absolute Auto 2400 /uL (1100-4500); Mean Corpuscular HGB Conc 33.5 % (30-36); Mean Corpuscular Hemoglobin 29.4 PG (26-34); Mean Corpuscular Volume 87.7 fL (80-100); Monocytes Absolute Auto 1200 /uL (0-900); Monocytes Percent Auto 10.8 % (3-14); Neutrophils Absolute Auto 7100 /uL (1500-7000); Neutrophils Percent Auto 64.1 % (50-75); Platelet Count 336 X10^3/uL (150-400); Prothrombin Time 11.2 SECONDS (10.1-12.7); Red Blood Cell Count 4.81 X10^6/uL (4.0-5.2)
[2022-02-15 17:42] LABS: Alanine Aminotransferase 35 IU/L (<35); Albumin 4.6 g/dL (3.5-5.0); Albumin Globulin Ratio 1.2 (1.0-2.8); Alkaline Phosphatase 71 U/L (38-126); Aspartate Aminotransferase 26 IU/L (14-36); BUN Creatinine Ratio 16.5 (6-22); Bilirubin Total 0.3 mg/dL (0.2-1.3); Blood Urea Nitrogen 17 mg/dL (7-17); Calcium 9.2 mg/dL (8.4-10.2); Carbon Dioxide 28 mmol/L (22-32); Chloride 99 mmol/L (98-107); Estimated Glomerular Filt Rate > 60 mL/min (>60); Globulin 3.8 g/dL (1.7-4.1); Glucose 108 mg/dL (80-110); HEMOLYSIS < 15 (0-50); Lipase 145 U/L (23-300); Potassium 4.1 mmol/L (3.4-5.1); Sodium 138 mmol/L (137-145); Total Protein 8.4 g/dL (6.3-8.2)
--- NOTE | 2022-02-15 18:15 | DI.CT.S_ITS ---
PROCEDURE: CT ABDOMEN PELVIS W CON INDICATIONS: Constipation; R sided abd px TECHNIQUE: After the administration of oral and IV contrast, axial sections were acquired from the lung bases to the pubic symphysis. Coronal and sagittal reformats were performed. For radiation dose reduction, the following was used: automated exposure control, adjustment of mA and/or kV according to patient size. COMPARISON: [facility], CT, CT ANGIO CHEST PE, 06/13/2018, 21:35. FINDINGS: Image quality: Excellent. Lung bases: No pleural effusion. Left lower lobe pulmonary nodule measuring at 0.3 cm, (/). Heart: No significant findings. Tiny fat containing left Bochdalek hernia. ABDOMEN: Liver: No focal lesion. Gallbladder: Unremarkable. Biliary ducts: Unremarkable. Pancreas: Unremarkable. Spleen: Unremarkable. Adrenal Glands: No nodule. Kidneys and Ureters: No hydronephrosis. Stomach and Bowel: Stomach is not distended. No small bowel obstruction. There is prominent stool in the colon. Peritoneum: No abnormal intraperitoneal fluid. No free air. Ventral Wall: No hernia. Abdominal Nodes: No retroperitoneal or mesenteric adenopathy by size criteria. Vessels: Aorta and inferior vena cava are normal in size. Moderate coronary artery calcifications. PELVIS: Pelvic Organs: Uterus is absent. Bladder: No stones. Pelvic Nodes: No enlarged lymph nodes. Miscellaneous: No inguinal hernias are seen. Left sacral stimulator lead. Generator device at the right lower back. Bones: No suspicious lesion. Schmorl's nodes at L3-L4. IMPRESSION: 1. No acute inflammatory process is identified. No free fluid. 2. Prominent stool in the colon suggesting constipation. Dictated by: Blue Lu M.D. on 02/15/2022 at 19:01 Approved by: Blue Lu M.D. on 02/15/2022 at 19:08
--- NOTE | 2022-02-15 18:31 | ED.ABDPAIN ---
HPI - Abdominal Pain <Mildred Vidal PA-C - Last Filed: 02/23/22 09:42> General Chief Complaint: Abdominal Pain Stated Complaint: DR Echo prieto chatant had a bowel movement in 2week Time Seen by Provider: 02/15/22 17:31 Source: patient Mode of arrival: Ambulatory History of Present Illness HPI narrative: 66-year-old female with past medical history type 2 diabetes, interstitial cystitis, GERD, insomnia presents to the ED with 2 weeks of constipation. Patient states that her bowel movements consists of a lot of air, mucous small amounts of bright red blood but no rales 2. Patient takes opioids for chronic pain, however has not had constipation resulting from it. Patient states that she had the flu 2 weeks ago, following which she is had this problem with constipation. Patient denies fever, chills, chest pain, shortness of breath, nausea, vomiting, dysuria, lightheadedness, dizziness, syncope. Patient complains of intermittent generalized abdominal pain. Related Data Home Medications Medication Instructions Recorded Confirmed omeprazole 20 mg capsule,delayed 20 mg PO DAILY ##0 07/31/12 12/16/21 release Vitamin B 1 tab PO DAILY 06/13/18 12/16/21 Vitamin D3 1 cap PO DAILY 06/13/18 12/16/21 multivitamin 1 tab PO DAILY 06/13/18 12/16/21 Stool Softener 2 cap PO BID 12/06/19 12/16/21 aspirin 81 mg tablet,delayed 81 mg PO DAILY 12/17/21 release Previous Rx's Medication Instructions Recorded trazodone 100 mg tablet 100 - 150 mg PO BEDTIME #100 tabs 02/04/21 estradiol 1 mg tablet (Estrace) 1 mg PO DAILY #90 tabs 04/06/21 citalopram 10 mg tablet 15 mg PO DAILY #135 tabs 04/17/21 pravastatin 20 mg tablet 20 mg PO BEDTIME #90 tabs 01/25/22 hydromorphone 4 mg tablet 4 mg PO 5XD #150 tabs 02/01/22 (Dilaudid) Allergies Allergy/AdvReac Type Severity Reaction Status Date / Time tramadol [TRAMADOL] Allergy Severe bad Verified 12/16/21 10:41 headaches ketorolac [KETOROLAC] Allergy Mild redness at Verified 12/16/21 10:41 injection site bupropion AdvReac Intermediate Headache Verified 12/16/21 10:41 Review of Systems <Mildred Vidal PA-C - Last Filed: 02/23/22 09:42> Review of Systems ROS Unobtainable: All systems reviewed & are unremarkable except as noted in HPI and below Constitutional Constitutional: Denies chills, Denies fatigue, Denies fever(s), Denies frequent falls, Denies lethargy and Denies weakness Eyes Eyes: Denies change in vision, Denies eye discharge, Denies irritation and Denies loss of vision ENT Ears, Nose, Mouth, and Throat: Denies change in voice, Denies dizziness, Denies neck pain, Denies sore throat and Denies throat swelling Cardiovascular Cardiovascular: Denies chest pain, Denies irregular heart rhythm, Denies lightheadedness, Denies palpitations, Denies dyspnea, Denies dyspnea on exertion and Denies orthopnea Respiratory Respiratory: Denies cough, Denies dyspnea, Denies dyspnea on exertion and Denies wheezing Gastrointestinal Gastrointestinal: Reports abdominal pain, Reports hematochezia, Denies change in bowel habits, Reports constipation, Denies diarrhea, Denies nausea and Denies vomiting Genitourinary Genitourinary: Denies hematuria, Denies flank pain, Denies urinary incontinence and Denies urinary urgency Musculoskeletal Musculoskeletal: Denies back pain, Denies muscle weakness, Denies neck pain, Denies numbness and Denies tingling Integumentary/Breasts Skin/Breast: Denies pruritus, Denies erythema, Denies rash and Denies wounds Neurologic Neurologic: Denies behavioral changes, Denies confusion, Denies dizziness, Denies frequent falls, Denies loss of vision, Denies numbness, Denies tingling and Denies weakness Psychiatric Psychiatric: Denies anxiety, Denies behavioral changes, Denies confusion, Denies depression, Denies homicidal ideation and Denies suicidal ideation Endocrine Endocrine: Denies fatigue, Denies flushing and Denies palpitations Hematologic/Lymphatic Hematologic/Lymphatic: Denies easy bruising Allergic/Immunologic Allergic/Immunologic: Denies urticaria, Denies throat swelling and Denies wheezing Patient History <Mildred Vidal PA-C - Last Filed: 02/23/22 09:42> Medical History Chronic interstitial cystitis Fibromyalgia Former smoker, stopped smoking in distant past Frequent UTI (1991) Hearing loss (2015) History of heavy periods (1968) 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) Ovarian cyst (1981) Painful menstrual periods (1968) Plantar warts (1974) Rosacea (~1989) Squamous cell carcinoma of head and neck (2014) Stress headaches Tinnitus (2016) Surgical History Anesthesia Status post hysterectomy (1993) Status post urological surgery (2012) Family History Father Hypertension Alcoholism Throat cancer Diabetes mellitus Mother Heart disease Hypertension Emphysema of lung Cancer Son Pneumonia Heroin addiction Social History household members: spouse and children Smoking Status: Former smoker Smoking Status: Former smoker alcohol intake frequency: 0-2 drinks per day Substance Use Type: does not use Exam <Mildred Vidal PA-C - Last Filed: 02/23/22 09:42> Narrative Exam Narrative: Const General:?cooperative, healthy appearing and comfortable [facility] Head:?normal to inspection Ears:?hearing grossly normal bilaterally Nose:?external nose normal Face and sinus:?normal facial exam and sinuses nontender Mouth:?oral mucosae normal Throat:?posterior oropharynx normal Eyes General:?appearance normal, both eyes and all related structures Neck Neck:?normal visual inspection and no lymphadenopathy noted Resp Effort & Inspection:?normal respiratory effort Auscultation:?clear to auscultation bilaterally Cardio Rate:?regular rate Rhythm:?regular rhythm GI Abdomen is soft, nondistended. Abdomen is tender to palpation in the left quadrants. Neuro General:?patient alert, patient awake and patient oriented x3 Initial Vital Signs Initial Vital Signs: Vital Signs Temperature 97.3 F L 02/15/22 13:07 Pulse Rate 78 02/15/22 13:07 Respiratory Rate 18 02/15/22 13:07 Blood Pressure 141/73 H 02/15/22 13:07 Pulse Oximetry 98 02/15/22 13:07 Oxygen Delivery Method 02/15/22 13:07 <Amelia Zaragoza DO - Last Filed: 02/24/22 07:00> Initial Vital Signs Initial Vital Signs: Vital Signs Temperature 97.3 F L 12/19/22 13:07 Pulse Rate 78 02/15/22 13:07 Respiratory Rate 18 02/15/22 13:07 Blood Pressure 141/73 H 02/15/22 13:07 Pulse Oximetry 98 02/15/22 13:07 Oxygen Delivery Method 02/15/22 13:07 Course <Mildred Vidal PA-C - Last Filed: 02/23/22 09:42> Orders Ordered: ED Orders 02/15/22 13:11 XR acute abdomen series Stat 02/15/22 13:12 Urinalysis and Microscopic Stat 02/15/22 15:38 EKG-12 Lead Stat 02/15/22 17:15 Complete Blood Count AUTO DIFF Stat Comprehensive Metabolic Panel Stat Lipase Stat Prothrombin Time INR Stat 02/15/22 18:15 CT abdomen pelvis w con Stat Vital Signs Vital signs: Vital Signs - 8 hr 02/15/22 13:07 Temperature 97.3 F L Pulse Rate 78 Respiratory Rate 18 Blood Pressure 141/73 H Pulse Oximetry 98 Oxygen Delivery Method Room Air <Amelia Zaragoza DO - Last Filed: 02/24/22 07:00> Orders Ordered: ED Orders 02/15/22 13:11 XR acute abdomen series Stat 02/15/22 13:12 Urinalysis and Microscopic Stat 02/15/22 15:38 EKG-12 Lead Stat 02/15/22 17:15 Complete Blood Count AUTO DIFF Stat Comprehensive Metabolic Panel Stat Lipase Stat Prothrombin Time INR Stat 02/15/22 18:15 CT abdomen pelvis w con Stat Vital Signs Vital signs: Vital Signs - 8 hr 02/15/22 13:07 Temperature 97.3 F L Pulse Rate 78 Respiratory Rate 18 Blood Pressure 141/73 H Pulse Oximetry 98 Oxygen Delivery Method Room Air MDM - Abdominal Pain <KYLE Carlson Last Filed: 02/23/22 09:42> Lab Data Result diagrams: 02/15/22 17:15 02/15/22 17:15 Labs: Lab Results 02/15/22 02/15/22 02/15/22 Range/Units 17:15 17:15 17:15 WBC 11.0 (4.5-11.0) X10^3/uL RBC 4.81 (4.0-5.2) X10^6/uL Hgb 14.1 (12.0-16.0) g/dL Hct 42.2 (36-46) % MCV 87.7 (80-100) fL MCH 29.4 (26-34) PG MCHC 33.5 (30-36) % RDW 13.0 (11.6-14.8) % Plt Count 336 (150-400) X10^3/uL Neut % (Auto) 64.1 (50-75) % Lymph % (Auto) 22.0 L (25-40) % Reagan % (Auto) 10.8 (3-14) % Eos % (Auto) 2.5 (2-4) % Baso % (Auto) 0.6 (0-2) % Neut # (Auto) 7100 H (3532-8629) /uL Lymph # (Auto) 2400 (0229-0463) /uL Reagan # (Auto) 1200 H (0-900) /uL Eos # (Auto) 300 (0-450) /uL Baso # (Auto) 100 (0-100) /uL PT 11.2 (10.1-12.7) SECONDS INR 1.0 (0.9-1.3) Sodium 138 (137-145) mmol/L Potassium 4.1 (3.4-5.1) mmol/L Chloride 99 (98-107) mmol/L Carbon Dioxide 28 (22-32) mmol/L BUN 17 (7-17) mg/dL Creatinine 1.03 (0.52-1.04) mg/dL Estimated GFR > 60 (>60) mL/min BUN/Creatinine Ratio 16.5 (6-22) Glucose 108 (80-110) mg/dL Calcium 9.2 (8.4-10.2) mg/dL Total Bilirubin 0.3 (0.2-1.3) mg/dL AST 26 (14-36) IU/L ALT 35 H (<35) IU/L Alkaline Phosphatase 71 (38-126) U/L Total Protein 8.4 H (6.3-8.2) g/dL Albumin 4.6 (3.5-5.0) g/dL Globulin 3.8 (1.7-4.1) g/dL Albumin/Globulin Ratio 1.2 (1.0-2.8) Lipase 145 (23-300) U/L Imaging Data CT scan - abdomen/pelvis: Radiologist's Impression: PROCEDURE:? CT ABDOMEN PELVIS W CON ? INDICATIONS:? Constipation; R sided abd px ? TECHNIQUE:? After the administration of oral and IV contrast, axial sections were acquired from the lung bases to the pubic symphysis.? Coronal and sagittal reformats were performed.? For radiation dose reduction, the following was used:? automated exposure control, adjustment of mA and/or kV according to patient size. ? COMPARISON:? [facility], CT, CT ANGIO CHEST PE, 06/13/2018, 21:35. ? FINDINGS:? Image quality:? Excellent.? ? Lung bases:? No pleural effusion.? Left lower lobe pulmonary nodule measuring at 0.3 cm, (05/08).? ? Heart:? No significant findings.? Tiny fat containing left Bochdalek hernia. ? ? ABDOMEN: Liver:? No focal lesion.? ? Gallbladder:? Unremarkable.? ? Biliary ducts:? Unremarkable.? ? Pancreas:? Unremarkable.? ? Spleen:? Unremarkable.? ? Adrenal Glands:? No nodule. Kidneys and Ureters:? No hydronephrosis. ? Stomach and Bowel:? Stomach is not distended.? No small bowel obstruction.? There is prominent stool in the colon.? Peritoneum:? No abnormal intraperitoneal fluid.? No free air.? ? Ventral Wall: ? No hernia.? Abdominal Nodes:? No retroperitoneal or mesenteric adenopathy by size criteria.? Vessels:? Aorta and inferior vena cava are normal in size.? Moderate coronary artery calcifications.? ? PELVIS: Pelvic Organs:? Uterus is absent. Bladder:? No stones.? ? Pelvic Nodes: No enlarged lymph nodes.? Miscellaneous: No inguinal hernias are seen.? Left sacral stimulator lead.? Generator device at the right lower back.? ? ? Bones:? No suspicious lesion.? Schmorl's nodes at L3-L4. ? ? IMPRESSION:? 1. No acute inflammatory process is identified.? No free fluid. ? 2. Prominent stool in the colon suggesting constipation. ? Dictated by: Blue Lu M.D. on 02/15/2022 at 19:01 ? ? Approved by: Bleu Lu M.D. on 02/15/2022 at 19:08 ? Abdominal x-ray: Radiologist's Impression: PROCEDURE:? XR ACUTE ABDOMEN SERIES ? INDICATIONS:? no bm x 2 weeks ? TECHNIQUE:? One view chest and two views of the abdomen were acquired.? ? COMPARISON:? None. ? FINDINGS:? ? Surgical changes and devices:? Right-sided pain management device is seen with lead projecting in left lower pelvis. ? Chest:? Lungs are clear.? Heart size is normal.? No pleural effusions.? No pneumoperitoneum.? ? Abdomen:? Bowel gas pattern is nonobstructive.? Moderate fecal stasis in the colon is seen.? No suspicious calcifications.? Visualized solid organ contours appear normal.? ? Bones:? No suspicious bony lesions.? ? IMPRESSION:? 1. [id number]-ej-[id number] constipation.? No gross free air. 2. No acute cardiopulmonary pathology. ? ? Dictated by: Barrett Casillas M.D. on 02/15/2022 at 14:47 ? ? Approved by: Barrett Casillas M.D. on 02/15/2022 at 14:47 ? MDM Narrative Medical decision making narrative: 66-year-old female with past medical history type 2 diabetes, interstitial cystitis, GERD, insomnia presents to the ED with 2 weeks of constipation. Concern for bowel obstruction versus constipation versus diverticulitis versus other abdominal etiology versus UTI versus other. Will obtain labs, lipase, abdominal x-ray, CT abdomen pelvis. Abdominal x-ray shows [id number] constipation, no bowel obstruction. CT abdomen pelvis shows significant stool burden, suggestive of constipation. No other acute findings. Labs were within normal limits. Recommend laxatives including magnesium citrate and MiraLax. Recommend follow-up with PCP for continued bowel regimen. ED return precautions were discussed with patient. Patient verbalized understanding. <Amelia Zaragoza, DO - Last Filed: 02/24/22 07:00> Lab Data Labs: Lab Results 02/15/22 02/15/22 02/15/22 Range/Units 17:15 17:15 17:15 WBC 11.0 (4.5-11.0) X10^3/uL RBC 4.81 (4.0-5.2) X10^6/uL Hgb 14.1 (12.0-16.0) g/dL Hct 42.2 (36-46) % MCV 87.7 (80-100) fL MCH 29.4 (26-34) PG MCHC 33.5 (30-36) % RDW 13.0 (11.6-14.8) % Plt Count 336 (150-400) X10^3/uL Neut % (Auto) 64.1 (50-75) % Lymph % (Auto) 22.0 L (25-40) % Reagan % (Auto) 10.8 (3-14) % Eos % (Auto) 2.5 (2-4) % Baso % (Auto) 0.6 (0-2) % Neut # (Auto) 7100 H (5313-3145) /uL Lymph # (Auto) 2400 (1441-3731) /uL Reagan # (Auto) 1200 H (0-900) /uL Eos # (Auto) 300 (0-450) /uL Baso # (Auto) 100 (0-100) /uL PT 11.2 (10.1-12.7) SECONDS INR 1.0 (0.9-1.3) Sodium 138 (137-145) mmol/L Potassium 4.1 (3.4-5.1) mmol/L Chloride 99 (98-107) mmol/L Carbon Dioxide 28 (22-32) mmol/L BUN 17 (7-17) mg/dL Creatinine 1.03 (0.52-1.04) mg/dL Estimated GFR > 60 (>60) mL/min BUN/Creatinine Ratio 16.5 (6-22) Glucose 108 (80-110) mg/dL Calcium 9.2 (8.4-10.2) mg/dL Total Bilirubin 0.3 (0.2-1.3) mg/dL AST 26 (14-36) IU/L ALT 35 H (<35) IU/L Alkaline Phosphatase 71 (38-126) U/L Total Protein 8.4 H (6.3-8.2) g/dL Albumin 4.6 (3.5-5.0) g/dL Globulin 3.8 (1.7-4.1) g/dL Albumin/Globulin Ratio 1.2 (1.0-2.8) Lipase 145 (23-300) U/L Discharge Plan Departure Patient Disposition: Home Clinical Impression: Constipation Instructions: DI for Constipation Activity Restrictions/Additional Instructions: You were evaluated in the ED today for abdominal pain and constipation. Your labs were normal, CT abdomen pelvis shows constipation but no other acute findings. You may take 300 of magnesium citrate, you may repeat this twice. After this, please take MiraLax every night for the next month or 2. Return to the ED if your symptoms worsen, you are persistently vomiting, you have a fever or chills, chest pain, shortness of breath. Prescriptions: No Action omeprazole 20 mg Capsule,Delayed Release(Dr/Ec) 20 mg PO DAILY Qty: 0 estradiol [Estrace] 1 mg tablet 1 mg PO DAILY Qty: 90 3RF citalopram 10 mg tablet 15 mg PO DAILY Qty: 135 3RF aspirin 81 mg tablet,delayed release (DR/EC) 81 mg PO DAILY pravastatin 20 mg tablet 20 mg PO BEDTIME Qty: 90 3RF hydromorphone [Dilaudid] 4 mg tablet 4 mg PO 5XD Qty: 150 0RF Rx Instructions: EXEMPT trazodone 100 mg tablet 100 - 150 mg PO BEDTIME Qty: 100 3RF multivitamin Tablet 1 tab PO DAILY Vitamin B 1 tab PO DAILY Vitamin D3 1 cap PO DAILY Stool Softener 2 cap PO BID Referrals: Israel Dodge MD [Primary Care Provider] - Visit Report Forms: Patient Portal/API <Amelia Zaragoza DO - Last Filed: 02/24/22 07:00> Cosign ED Attending Azucenaature Attestation: I was immediately available in the department for consultation. Documentation has been reviewed. I agree with assessment and plan.
== END 2022-02-15 19:50 | disposition home or self-care (01) ==
PROVIDERS: Emergency Medicine; Emergency Provider Student in an Organized Health Care Education/Training Program; PCP Student in an Organized Health Care Education/Training Program
DX: R10.9 Unspecified abdominal pain (principal); K59.00 Constipation, unspecified
CPT/HCPCS: 36415; 74022; 74177; 80053; 83690; 85025; 85610; 99284; Q9967

== ENCOUNTER → 2022-05-05 11:29 | Outpatient (CLI) | payer OTHER, SELFPAY ==
[2019-01-26 14:19] VITALS: BMI 34.9
[2022-05-05 12:52] LABS: Hemoglobin A1C% w Est Avg Glu 6.6 % (4.0-6.0)
[2022-05-05 13:01] LABS: Cholesterol 272 mg/dL (140-199); HDL Cholesterol 74 mg/dL (40-60); LDL Cholesterol Calculated 151 mg/dL (<100); Triglycerides 235 mg/dL (35-150)
== END ==
PROVIDERS: PCP Student in an Organized Health Care Education/Training Program; Referring Provider Student in an Organized Health Care Education/Training Program; Visit Provider Student in an Organized Health Care Education/Training Program
DX: E11.69 Type 2 diabetes mellitus with other specified complication (principal); E11.9 Type 2 diabetes mellitus without complications; E78.5 Hyperlipidemia, unspecified
CPT/HCPCS: 36415; 80061; 83036

== ENCOUNTER → 2023-05-26 10:41 | Outpatient (CLI) | payer OTHER, SELFPAY ==
[2023-05-10 14:50] VITALS: BMI 34.9
[2023-05-26 11:36] LABS: Add Manual Diff / Slide Review NO; Basophils Absolute Auto 0 /uL (0-100); Basophils Percent Auto 0.5 % (0-2); Eosinophils Absolute Auto 200 /uL (0-450); Eosinophils Percent Auto 2.9 % (2-4); Hematocrit 40.5 % (36-46); Hemoglobin 13.6 g/dL (12.0-16.0); Lymphocytes Absolute Auto 1600 /uL (1100-4500); Lymphocytes Percent Auto 25.5 % (25-40); Mean Corpuscular HGB Conc 33.5 % (30-36); Mean Corpuscular Hemoglobin 29.5 PG (26-34); Monocytes Absolute Auto 700 /uL (0-900); Monocytes Percent Auto 11.1 % (3-14); Neutrophils Absolute Auto 3800 /uL (1500-7000); Platelet Count 265 X10^3/uL (150-400); Red Blood Cell Count 4.61 X10^6/uL (4.0-5.2); Red Cell Distribution Width 12.8 % (11.6-14.8); White Blood Cell Count 6.3 X10^3/uL (4.5-11.0)
[2023-05-26 11:48] LABS: Alanine Aminotransferase 15 IU/L (<35); Albumin Globulin Ratio 1.3 (1.0-2.8); Alkaline Phosphatase 51 U/L (38-126); Aspartate Aminotransferase 23 IU/L (14-36); BUN Creatinine Ratio 20.7 (6-22); Bilirubin Total 0.5 mg/dL (0.2-1.3); Blood Urea Nitrogen 17 mg/dL (7-17); Calcium 9.4 mg/dL (8.4-10.2); Carbon Dioxide 31 mmol/L (22-32); Chloride 105 mmol/L (98-107); Cholesterol 265 mg/dL (140-199); Estimated Glomerular Filt Rate > 60 mL/min (>60); Glucose 127 mg/dL (80-110); HDL Cholesterol 63 mg/dL (40-60); HEMOLYSIS < 15 (0-50); LDL Cholesterol Calculated 175 mg/dL (<100); Potassium 4.2 mmol/L (3.4-5.1); Sodium 137 mmol/L (137-145); Triglycerides 133 mg/dL (35-150)
[2023-05-26 19:15] LABS: Hemoglobin A1C% w Est Avg Glu 6.7 % (4.0-6.0)
[2023-05-26 22:58] LABS: HIV 1 & 2 Ab/Ag 4th Gen Combo NEGATIVE (NEGATIVE); Hep C Virus Ab w/Reflex Quant NEGATIVE s/c (NEGATIVE)
== END ==
PROVIDERS: PCP Family Medicine; Referring Provider Family Medicine; Visit Provider Family Medicine
DX: Z00.00 Encounter for general adult medical examination without abnormal findings (principal); E11.69 Type 2 diabetes mellitus with other specified complication; E78.5 Hyperlipidemia, unspecified; E11.9 Type 2 diabetes mellitus without complications
CPT/HCPCS: 36415; 80053; 80061; 83036; 85025; 86803; 87389

== ENCOUNTER 2023-11-18 10:46 | Inpatient (IN) | payer OTHER, SELFPAY ==
[2023-05-10 14:50] VITALS: BMI 34.9
[2023-11-15 16:00] VITALS: BMI 37.5
[2023-11-17] VITALS (21 sets, daily range): BP systolic 79–191; BP diastolic 42–113; PULSE 68–127; RESP 11–19; TEMP 36.3–36.7; O2SAT 94–100; BMI 37.5; BMI 38.7
--- NOTE | 2023-11-17 | DI.RAD.S_ITS ---
PROCEDURE: XR PELVIS 1-2V INDICATIONS: FOREIGN BODY, METAL BULLET TYPE CAP TECHNIQUE: 1 view(s) of the pelvis acquired. COMPARISON: None. FINDINGS: Bones: No fractures or dislocations. No suspicious bony lesions. Soft tissues: Visualized bowel gas pattern is normal. No suspicious soft tissue calcifications. Sacral neurostimulator projects over the left lower abdomen. Surgical drain or spine should projects over the perineum. No metallic bullet type radiodense foreign bodies. IMPRESSION: No bullet type radiodense foreign body. Dictated by: Danuta Ledezma MD, PhD on 11/17/2023 at 12:55 Approved by: Danuta Ledezma MD, PhD on 11/17/2023 at 12:56
[2023-11-17] MEDS: LACTATED RINGERS 1,000 ML 42 ML IV (08:55)
[2023-11-17] MEDS: ACETAMINOPHEN 325 MG TABLET 975 MG PO (08:56)
--- NOTE | 2023-11-17 09:52 | PM.PREOP ---
Pre-operative Note COVID-19 COVID-19 status: Not tested Interval Note History & Physical reviewed/Exam performed by Physician: Yes Changes to H&P: No
[2023-11-17] MEDS: CEFAZOLIN 2 GM/100 ML PREMIX 100 ML IV (10:20)
[2023-11-17] MEDS: BUPIVACAINE 0.25% W/ EPI (PF) 10 ML VIAL 30 ML INJ (10:30)
--- NOTE | 2023-11-17 10:49 | SUR.OPER ---
mcrae discontinued at 10:[address] Shah balloon reinflated at 10:50
--- NOTE | 2023-11-17 10:51 | SUR.OPER ---
Lithotomy on padded OR bed, head on pillow, arms secured on padded arm boards at <90 degrees abduction. Legs secured in padded yellow fins stirrups.
--- NOTE | 2023-11-17 12:54 | PM.GYNOP.1 ---
Operative Date/Time/Diagnoses Date of procedure: 11/17/23 Time of procedure: 10:00 Pre-op diagnosis: Stress urinary incontinence Cystocele Vaginal cuff prolapse following hysterectomy Post-op diagnosis: same Procedure & Clinicians Procedure: Procedures Operation Date: 11/17/23 09:45 Actual Procedure Side Surgeon p Anterior colporrhaphy s Sacrospinous ligament fixation of vaginal vault, Anterior Repair Good Shah MD s Mid urethral sling placement with cysto Good Shah MD Indications: kirt presented in referral from Dr. Jeff Neil regarding vaginal prolapse. She has a 68-year-old , LMP in 1991 at which time she had a supracervical hysterectomy performed with removal of 1 of her ovaries. She has had no bleeding since that time and clinically went through menopause at a round age 51-52. Menarche occurred at age 16 and she had regular predictable periods throughout her reproductive life but they were always very heavy. Patient has had 2 spontaneous vaginal births and her 3rd delivery was by . Her largest vaginal was her 1st and her son was born with a weight of over 11 lb. She is noted progressive vaginal bulging the last 6 months or so and is also noted at the same time some increased difficulty voiding especially when the prolapse is prominent. Patient's history is notable for interstitial cystitis diagnosed in 1989 and she had a Medtronic stimulator placed. Unfortunately the battery after 7 years and she has been told by a urologist in area that the battery can not be replaced. She has not sought a 2nd opinion for possible for placement of battery or placed went of the generator unit. Review of systems is also notable for significant stress urinary incontinence and urinary frequency and urge associated with her interstitial cystitis. Trial of Elmiron was not beneficial. She was originally fitted with a vaginal pessary which provided reasonably good support but the patient was highly satisfied with the use of the pessary and wishes to instead to pursue surgical correction of her vault prolapse, cystocele, and stress urinary incontinence. After consideration of all options she has opted for performance of sacral spinous ligament fixation of the vaginal vault, anterior colporrhaphy, and placement of mid urethral sling with cystoscopy. She presents today for her scheduled surgery. Surgeon: Good Shah Retail Business Development Manager: Kary Baxter Anesthesia Type: General Operative Notes Findings: Stage II cystocele, stage 1-2 vaginal prolapse. Cystoscopy reveals diffuse mild inflammatory changes bladder mucosa no injury following placement CT. Closure Type: primary Specimen(s): none Applied: catheter Estimated blood loss (mL): 100 Blood products transfused: none Procedure in detail: Following induction of general anesthesia by LMA, the patient was positioned in modified dorsal lithotomy position, then prepped and draped in the usual manner for vaginal surgery. A pre-surgical safety time-out was then taken in accordance with [facility] protocols. Purcell catheter was inserted in the bladder. A weighted speculum was placed in the vagina and Lonestar retractor was placed for lateral retraction of the labiae. The mid urethra was identified by palpation and the mucosa in the midline was infiltrated with 0.5% Marcaine with epinephrine. A 2 cm longitudinal incision was made in the vaginal mucosa over this area and dissection carried out bilaterally with Metzenbaum scissors. The Ethicon TVT device was then introduced 1st on the right and then on the left and delivered upward through the suprapubic skin with a scalpel creating a small incision. The catheter was removed and cystoscopy performed showing no injury to the bladder. The Purcell catheter was then replaced following cystoscopy and the TVT brought up through the suprapubic skin. The TVT was then appropriately tensioned and the sleeves removed from both sides. The redundant portion of TVT material was trimmed with Ortiz scissors and skin glue applied to the incisions. Attention was then turned to the anterior colporrhaphy. The midline of the vaginal mucosa anteriorly was infiltrated with 0.5% Marcaine with epinephrine. Longitudinal incision up to the vaginal cuff was then made with a scalpel and dissection carried lateral with Metzenbaum scissors as well as blunt and sharp dissection. Once adequate exposure been achieved, a two-layer plication of the bladder base was carried out with 2-0 Vicryl interrupted suture. The redundant portion of vaginal mucosa was then trimmed and the anterior colporrhaphy incision closed with 2-0 Vicryl and a running interlocking stitch. Attention was then turned to the posterior compartment. The posterior vaginal wall was infiltrated the midline with 0.5% Marcaine with epinephrine and a longitudinal incision made. Dissection into the pararectal spaces on both sides was carried out with sharp and blunt dissection. The sacrospinous ligament and ischial spines for carefully palpated on both sides and a single 2-0 Prolene using a Capio device was placed through the sacral spinous ligaments on both sides. Using a melyssa stitch technique, the vaginal mucosa on each side was secured to the Prolene stitch preparations for closure the posterior vaginal wall initiated. 2-0 Vicryl in a running interlocking stitch was used to begin the closure and once the closure of the back wall of the vagina had been initiated, the apex of the vaginal cuff was elevated 1st on the right and then on the left so as to provide excellent elevation and support of the vaginal cuff bilaterally. The perirectal spaces were then closed with 2-0 Vicryl interrupted and areas carefully inspected for bleeding. The posterior colporrhaphy was then closed with 2-0 Vicryl in running interlocking stitch and 1 additional [id number] was required for complete hemostasis of the posterior vaginal wall incision. A vaginal pack was then placed and the procedure terminated. Patient was awakened from anesthesia and transferred to the PACU for a period of observation recovery after tolerating the procedure well. Completion of the case was delayed due to an incorrect needle count involving a single Capio bullet which has finally located after a flap plate of the abdomen showed no evidence of retained foreign body on the imaging. Complications: none Post-operative Condition: stable Disposition: PACU Plan for aftercare: Overnight observation with routine postoperative and follow-up will be in 2 weeks or as needed
[2023-11-17] MEDS: ONDANSETRON 4 MG/2 ML INJ IV (13:09)
--- NOTE | 2023-11-17 13:09 | SUR.OPER ---
missing sharp surgeon notified search conducted x ray obtained x ray read by Dr. Shah no retained foreign body sharp located
[2023-11-17] MEDS: HYDROMORPHONE 1 MG INJ IV (13:10)
[2023-11-17] MEDS: fentaNYL 100 MCG/2 ML INJ IV ×3 (13:13→13:23)
[2023-11-17] MEDS: HYDROMORPHONE 0.5 MG INJ IV (13:30)
[2023-11-17] MEDS: OXYCODONE IR 5 MG TABLET PO (13:35)
[2023-11-17] MEDS: HYDROMORPHONE 2 MG TABLET 4 MG PO ×3 (14:36→20:37)
[2023-11-17] MEDS: SODIUM CHLORIDE 0.9% 500 ML 1000 ML IV (16:05)
[2023-11-17] MEDS: LACTATED RINGERS 1,000 ML 100 ML IV ×2 (16:05→20:36)
[2023-11-17 16:38] LABS: Add Manual Diff / Slide Review NO; Basophils Absolute Auto 0 /uL (0-100); Basophils Percent Auto 0.1 % (0-2); Eosinophils Absolute Auto 100 /uL (0-450); Eosinophils Percent Auto 0.4 % (2-4); Hematocrit 31.2 % (36-46); Hemoglobin 10.4 g/dL (12.0-16.0); Lymphocytes Absolute Auto 800 /uL (1100-4500); Lymphocytes Percent Auto 4.3 % (25-40); Mean Corpuscular HGB Conc 33.3 % (30-36); Monocytes Absolute Auto 400 /uL (0-900); Monocytes Percent Auto 2.3 % (3-14); Neutrophils Absolute Auto 17700 /uL (1500-7000); Neutrophils Percent Auto 92.9 % (50-75); Platelet Count 397 X10^3/uL (150-400); Red Blood Cell Count 3.47 X10^6/uL (4.0-5.2); Red Cell Distribution Width 13.1 % (11.6-14.8)
--- NOTE | 2023-11-17 16:58 | PM.PN.1 ---
Subjective Subjective Date Patient Seen: 11/17/23 Time Patient Seen: 16:10 Interval history: Patient has been in considerable pain since surgery and only response partially to IV Dilaudid. Exam is unremarkable, abdomen is soft, and vaginal bleeding is minimal. Vaginal packing removed earlier than planned in hopes that it would help her pain but it only provided limited improvement. CBC shows leukocytosis with as would be expected postop with H&H dropping 3/9.5 which is slightly greater than would be expected with observed operative losses but suspect those observed operative losses were under estimated. Will keep close observation on her vital signs and pain overnight but strongly suspect that pain control is being made far more difficult by her daily dosage of 20 mg hydromorphone. Exam Vital Signs (past 8 hours): - 11/17/23 12:52 11/17/23 12:58 11/17/23 13:03 Temperature 97.4 F L Pulse Rate 94 H 95 H 94 H Respiratory Rate 19 19 16 Blood Pressure 163/100 H 174/88 H 158/78 H Pulse Oximetry 98 94 95 Oxygen Delivery Method Room Air Room Air Room Air Oxygen Flow Rate 11/17/23 13:08 11/17/23 13:12 11/17/23 13:18 Temperature Pulse Rate 93 H 78 79 Respiratory Rate 19 15 13 Blood Pressure 170/113 H 178/101 H 191/86 H Pulse Oximetry 98 97 95 Oxygen Delivery Method Room Air Room Air Room Air Oxygen Flow Rate 11/17/23 13:22 11/17/23 13:27 11/17/23 13:32 Temperature Pulse Rate 77 74 71 Respiratory Rate 12 12 18 Blood Pressure 187/108 H 173/74 H 144/75 H Pulse Oximetry 95 97 96 Oxygen Delivery Method Room Air Nasal Cannula Nasal Cannula Oxygen Flow Rate 4 4 11/17/23 13:37 11/17/23 13:42 11/17/23 14:32 Temperature Pulse Rate 82 83 114 H Respiratory Rate 19 11 L 16 Blood Pressure 122/62 120/58 L 118/73 Pulse Oximetry 97 97 98 Oxygen Delivery Method Room Air Nasal Cannula Nasal Cannula Oxygen Flow Rate 4 2 11/17/23 14:55 11/17/23 15:36 11/17/23 15:46 Temperature 98.1 F 97.5 F L Pulse Rate 76 127 H 108 H Respiratory Rate 16 17 Blood Pressure 90/46 L 79/46 L 93/50 L Pulse Oximetry 98 97 Oxygen Delivery Method Oxygen Flow Rate 2 Oxygen Delivery Method Nasal Cannula Oxygen Flow Rate 2 Const General: cooperative and comfortable Nutritional Appearance: average body habitus Orientation: alert and oriented x3 HENMT Head: normal to inspection, atraumatic and abrasion Ears: hearing grossly normal bilaterally Face and sinus: face symmetric Eyes General: appearance normal, both eyes and all related structures Conjunctivae: conjunctivae normal Sclera: sclerae normal EOM: EOM intact bilaterally Neck Neck: normal visual inspection Resp Effort & Inspection: normal respiratory effort and able to speak in complete sentences Auscultation: clear to auscultation bilaterally Cardio Rate: regular rate Rhythm: regular rhythm Heart Sounds: S1 normal, S2 normal and no murmurs GI Inspection: normal to inspection and incision (Surgical dressing clean and dry, no ecchymosis) Palpation: soft, no hepatosplenomegaly and tender (Mild, diffuse postsurgical tenderness) External Female Exam: other (No significant bleeding noted after vaginal pack removed) Extrem General: no calf tenderness Psych Appearance: grossly normal Mental Status: mental status grossly normal Speech and Movement: speech and movement normal Mood: congruent mood Affect: normal affect Attitude: cooperative Thought Process: normal Thought Content: normal Judgment: judgment good Objective Labs 11/17/23 16:31 Labs: Laboratory Results - last 24 hr 11/17/23 16:31 WBC 19.0 H RBC 3.47 L Hgb 10.4 L Hct 31.2 L MCV 90.0 MCH 30.0 MCHC 33.3 RDW 13.1 Plt Count 397 Neut % (Auto) 92.9 H Lymph % (Auto) 4.3 L [place] % (Auto) 2.3 L Eos % (Auto) 0.4 L Baso % (Auto) 0.1 Neut # (Auto) 46573 H Lymph # (Auto) 800 L [place] # (Auto) 400 Eos # (Auto) 100 Baso # (Auto) 0 PFSH Medical History (Updated 11/17/23 @ 17:03 by Good Shah MD) Fibromyalgia Former smoker, stopped smoking in distant past Chronic interstitial cystitis Ovarian cyst (1981) Frequent UTI (1991) Squamous cell carcinoma of head and neck (2014) Stress headaches History of heavy periods (1968) Painful menstrual periods (1968) Tinnitus (2015) Plantar warts (1974) Rosacea (~1989) Hearing loss (2016) 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) Surgical History Anesthesia Status post urological surgery (2012) Status post hysterectomy (1993) Family History Father Hypertension Alcoholism Throat cancer Diabetes mellitus Mother Heart disease Hypertension Emphysema of lung Cancer Son Pneumonia Heroin addiction Social History household members: spouse and children Smoking Status: Former smoker alcohol intake: current Assessment & Plan Assessment and plan (1) PRETTY (stress urinary incontinence, female): Status: Acute (2) POP-Q stage 2 cystocele: Status: Acute (3) Prolapse of vaginal cuff after hysterectomy: Status: Acute (4) Chronic, continuous use of opioids: Status: Acute Plan Patient received 500 cc RLL bolus immediately prior to CBC draw and her blood pressures have climbed back into a more normal range now. Her pain is somewhat improved but she still is requiring large doses of p.o./IV Dilaudid to provide sufficient pain relief. Will continue close observation for any evidence of bleeding and recheck H&H in 12 hours or as needed. Time-Based Coding :: [TOTAL MINUTES] spent with patient and on the chart (including review of chart, obtaining history, exam, reviewing outside data, placing orders, documenting exam and treatment plan, and counseling patient) on [DATE].
[2023-11-17] MEDS: ACETAMINOPHEN 325 MG TABLET 650 MG PO ×2 (17:13→23:14)
[2023-11-17] MEDS: IBUPROFEN 600 MG TABLET PO ×2 (17:14→23:14)
[2023-11-17] MEDS: TRAZODONE 50 MG TABLET 100 MG PO (20:36)
[2023-11-17] MEDS: DOCUSATE 100 MG CAPSULE 200 MG PO (20:36)
[2023-11-17] MEDS: diphenhydrAMINE 25 MG TABLET PO (23:35)
[2023-11-18] VITALS (13 sets, daily range): BP systolic 93–144; BP diastolic 46–88; PULSE 92–107; RESP 16–18; TEMP 35.9–36.7; O2SAT 93–98
[2023-11-18] MEDS: HYDROMORPHONE 2 MG TABLET 4 MG PO ×4 (04:42→20:05)
[2023-11-18] MEDS: IBUPROFEN 600 MG TABLET PO ×3 (05:47→17:18)
[2023-11-18] MEDS: ACETAMINOPHEN 325 MG TABLET 650 MG PO ×3 (05:47→17:18)
[2023-11-18] MEDS: LACTATED RINGERS 1,000 ML 100 ML IV (05:52)
--- NOTE | 2023-11-18 06:04 | PC.NURSE ---
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 Purewick placed for patient comfort. Small amount of vaginal bleeding noted. Patient reports pain in abdomen, consistently 6-8/10, medicated as ordered. Hypotensive overnight, MD Shah notified. IVF infusing. Patient denies dizziness, nausea, SOB, CP. Benedryl given for seasonal allergies. Oriented to call-light, plan of care ongoing.
[2023-11-18 06:24] LABS: Add Manual Diff / Slide Review NO; Basophils Absolute Auto 0 /uL (0-100); Basophils Percent Auto 0.2 % (0-2); Eosinophils Absolute Auto 0 /uL (0-450); Eosinophils Percent Auto 0.1 % (2-4); Hematocrit 21.9 % (36-46); Hemoglobin 7.5 g/dL (12.0-16.0); Lymphocytes Absolute Auto 2300 /uL (1100-4500); Lymphocytes Percent Auto 18.4 % (25-40); Mean Corpuscular HGB Conc 34.2 % (30-36); Mean Corpuscular Hemoglobin 30.3 PG (26-34); Mean Corpuscular Volume 88.7 fL (80-100); Monocytes Absolute Auto 1600 /uL (0-900); Monocytes Percent Auto 12.3 % (3-14); Neutrophils Absolute Auto 8800 /uL (1500-7000); Platelet Count 269 X10^3/uL (150-400); Red Blood Cell Count 2.47 X10^6/uL (4.0-5.2); Red Cell Distribution Width 12.8 % (11.6-14.8); White Blood Cell Count 12.7 X10^3/uL (4.5-11.0)
--- NOTE | 2023-11-18 07:22 | DI.CT.S_ITS ---
PROCEDURE: CT ABDOMEN PELVIS W CON INDICATIONS: Post op anemia TECHNIQUE: After the administration of intravenous contrast, axial sections acquired from the lung bases to the pubic symphysis. Coronal and sagittal reformats were performed. For radiation dose reduction, the following was used: automated exposure control, adjustment of mA and/or kV according to patient size. COMPARISON: [facility], CT, CT ABDOMEN PELVIS W CON, 02/15/2022, 18:23. FINDINGS: Image quality: Diagnostic. Lower Chest: No significant findings. ABDOMEN: Liver: No solid mass. Gallbladder: No radiopaque gallstones or wall thickening. Biliary ducts: No biliary dilation. Pancreas: No ductal dilation. Spleen: Size is within normal limits. Adrenal Glands: No adrenal nodules. Kidneys and Ureters: No hydronephrosis. No solid mass. No complex renal cystic lesion which requires follow up. Stomach and Bowel: Normal colonic caliber, without significant wall thickening. Peritoneum: There is a large pelvic hematoma which is centered in the patchy of [place] and measures 9.2 x 5.6 x 5.3 cm. There is [id number] free peritoneal hemorrhage and there is mild lower density ascites around the liver. Ventral Wall: No significant ventral hernia. Abdominal Nodes: No retroperitoneal or mesenteric adenopathy by size criteria. Vessels: Aorta and inferior vena cava are normal in size. PELVIS: Pelvic Organs: Remote hysterectomy. Bladder: No bladder wall thickening, accounting for underdistention. Pelvic Nodes: No enlarged lymph nodes. Miscellaneous: No inguinal hernias are seen. Detrusor muscle stimulator device. Bones: No aggressive osseous abnormality. IMPRESSION: 1. Remote hysterectomy. 2. Large pelvic hematoma and [id number] free intraperitoneal hemorrhage and mild perihepatic ascites. Dictated by: Christian Funk M.D. on 11/18/2023 at 9:15 Approved by: Christian Funk M.D. on 11/18/2023 at 9:23
--- NOTE | 2023-11-18 07:44 | P.PN_ITS ---
Subjective Subjective Date Patient Seen: 11/18/23 Time Patient Seen: 07:15 Interval history: Overnight the patient continues to have significant pelvic pain and lower abdominal pain which has kept her from getting out of bed. Minimal bleeding PV but her H&H continues to drop. No N&V and she has started passing gas. Exam Vital Signs (past 8 hours): - 11/18/23 03:11 11/18/23 04:27 Temperature 97.6 F Pulse Rate 96 H 93 H Respiratory Rate 16 Blood Pressure 93/46 L 113/55 L Pulse Oximetry 97 Oxygen Flow Rate 1.5 Oxygen Delivery Method Nasal Cannula Oxygen Flow Rate 1.5 Const General: cooperative and comfortable Nutritional Appearance: average body habitus Orientation: alert and oriented x3 HENMT Head: normal to inspection, atraumatic and abrasion Ears: hearing grossly normal bilaterally Face and sinus: face symmetric Eyes General: appearance normal, both eyes and all related structures Conjunctivae: conjunctivae normal Sclera: sclerae normal EOM: EOM intact bilaterally Neck Neck: normal visual inspection Resp Effort & Inspection: normal respiratory effort and able to speak in complete sentences Auscultation: clear to auscultation bilaterally Cardio Rate: regular rate Rhythm: regular rhythm Heart Sounds: S1 normal, S2 normal and no murmurs GI Inspection: normal to inspection, distended (Slightly distended) and incision (Surgical dressing clean and dry) Palpation: soft, no hepatosplenomegaly and tender (Mild, diffuse postsurgical tenderness) Auscultation: absent bowel sounds External Female Exam: other (No significant bleeding noted) Extrem General: no calf tenderness Psych Appearance: grossly normal Mental Status: mental status grossly normal Speech and Movement: speech and movement normal Mood: congruent mood Affect: normal affect Attitude: cooperative Thought Process: normal Thought Content: normal Judgment: judgment good Objective Labs 11/18/23 05:37 Labs: Laboratory Results - last 24 hr 11/17/23 11/18/23 16:31 05:37 WBC 19.0 H 12.7 H RBC 3.47 L 2.47 L Hgb 10.4 L 7.5 L Hct 31.2 L 21.9 L MCV 90.0 88.7 MCH 30.0 30.3 MCHC 33.3 34.2 RDW 13.1 12.8 Plt Count 397 269 Neut % (Auto) 92.9 H 69.0 D Lymph % (Auto) 4.3 L 18.4 L [place] % (Auto) 2.3 L 12.3 Eos % (Auto) 0.4 L 0.1 L Baso % (Auto) 0.1 0.2 Neut # (Auto) 40188 H 8800 H Lymph # (Auto) 800 L 2300 [place] # (Auto) 400 1600 H Eos # (Auto) 100 0 Baso # (Auto) 0 0 PFSH Medical History (Updated 11/18/23 @ 07:49 by Good Shah MD) Fibromyalgia Former smoker, stopped smoking in distant past Chronic interstitial cystitis Ovarian cyst (1981) Frequent UTI (1991) Squamous cell carcinoma of head and neck (2014) Stress headaches History of heavy periods (1968) Painful menstrual periods (1968) Tinnitus (2015) Plantar warts (1974) Rosacea (~1989) Hearing loss (2015) 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 IV TXA 1000 mg NPO status in case surgical re-exploration necessary Abdominal binder Recheck H&H at 1000; consider transfusion if H&H continues to fall Patient counseled re: finding of anemia and plans for evaluation/potential treatments Time-Based Coding :: [TOTAL MINUTES] spent with patient and on the chart (including review of chart, obtaining history, exam, reviewing outside data, placing orders, documenting exam and treatment plan, and counseling patient) on [DATE].
[2023-11-18] MEDS: TRANEXAMIC ACID 1,000 MG in SODIUM CHLORIDE 0.9% 100 ML 200 MG IV (07:56)
[2023-11-18] MEDS: DOCUSATE 100 MG CAPSULE 200 MG PO ×2 (08:36→20:05)
--- NOTE | 2023-11-18 09:17 | EKG_ITS ---
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
[2023-11-18] MEDS: HYDROMORPHONE 2 MG INJ IV (09:22)
--- NOTE | 2023-11-18 09:29 | DI.ECHO.S_ITS ---
[facility]+ [facility] : : [address] : : [place] : : [id number] : : Phone: [phone] Echocardiogram Report + + :Name: MANN BROWN Study Date: 11/18/2023 Height: 60 in : :[facility] ReadingLocation: Weight: 198 lb: : Gender: Female BSA: 1.9 m2 : :: 1955 Age: 68 yrs BP: 90/46 mmHg: :Reason For Study: Chest pain : :Ordering Physician: BETH, : :ANALI [place] Performed By: Kristen Gonzáles : :Referring: ANALI CAMPOS : + + Interpretation Summary The left ventricle is normal in size and wall thickness. The ejection fraction is estimated to be 65-70%. There are no focal wall motion abnormalities. Diastolic parameters suggest a relaxation abnormality of the left ventricle, consistent with probable normal filling pressures. The right ventricle grossly appears normal in size with probable normal systolic function. The left atrium is mildly dilated. The aortic root is normal size. Procedure: A two-dimensional transthoracic echocardiogram with color flow and Doppler was performed. The study quality was technically adequate. Comparison is made with the echocardiogram of 03-05-13. The heart rate ranged between 92-95 bpm during the study. Left Ventricle: The left ventricle is normal in size and wall thickness. The ejection fraction is estimated to be 65-70%. There are no focal wall motion abnormalities. Diastolic parameters suggest a relaxation abnormality of the left ventricle, consistent with probable normal filling pressures. Right Ventricle: The right ventricle grossly appears normal in size with probable normal systolic function. Atria: The left atrium is mildly dilated. Right atrial size is normal. The interatrial septum grossly appears intact with no obvious evidence for an atrial septal defect. Mitral Valve: The mitral valve leaflets appear borderline thickened, but open well. There is no mitral regurgitation noted. Aortic Valve: The aortic valve opens well. No aortic regurgitation is present. Tricuspid Valve: The tricuspid valve is normal in structure and function. No tricuspid regurgitation. Pulmonic Valve: The pulmonic valve is not well visualized. Great Vessels: The aortic root is normal size. The ascending aorta is at the upper limits of normal in size. The aortic arch is normal in size. The IVC is of normal diameter and collapses greater than 50% with a sniff. This suggests a low right atrial pressure of 3 mm Hg. Pericardium/ Pleura There is no pericardial effusion. There is no pleural effusion. MMode/2D Measurements & Calculations LVIDd: 3.7 cm LVOT diam: 2.4 cm LVIDs: 2.2 cm Ao root diam: 3.5 cm FS: 40.2 % asc Aorta Diam: 3.5 cm IVSd: 0.98 cm Ao Arch Diam (Prox Trans): 3.1 cm LVPWd: 0.70 cm LV kumar. diameter/BSA (cm/m^2): 2.0 LV sys. diameter/BSA (cm/m^2): 1.2 LA A2 area: 19.6 cm2 RA long axis: 4.3 cm LA A4 area: 21.8 cm2 RA area: 12.2 cm2 LA length (vol): 5.7 cm RA vol: 29.6 ml LA vol: 63.3 ml RA : 15.9 ml/m2 LA vol index: 34.0 ml/m2 IVC diam: 1.1 cm TAPSE: 2.5 cm Doppler Measurements & Calculations Ao V2 max: 190.5 cm/sec LVOT Max Branden: 97.7 cm/sec Ao V2 mean: 125.3 cm/sec LV V1 max P.8 mmHg Ao max P.5 mmHg LV V1 VTI: 18.7 cm Ao mean P.3 mmHg MAEVE(I,D): 2.4 cm2 Ao V2 VTI: 34.7 cm MAEVE(V,D): 2.3 cm2 sev ratio: 0.54 MAEVE indexed to BSA (cm^2/m^2): 1.3 MV E max branden: 106.9 cm/sec PA V2 max: 59.7 cm/sec MV A max branden: 133.6 cm/sec PA V2 mean: 42.0 cm/sec MV E/A: 0.80 PA mean P.79 mmHg Med Peak E' Branden: 8.9 cm/sec PA pr(Accel): 8.8 mmHg E/E' med: 12.0 Lat Peak E' Branden: 8.7 cm/sec E/E' lat: 12.3 E/e' average: 12.2 MV dec time: 0.16 sec SV(LVOT): 82.0 ml Reading Physician:05:24 PM
--- NOTE | 2023-11-18 09:30 | PM.EVENT ---
Event Note Date Patient Seen: 11/18/23 Time Patient Seen: 09:30 Event Note (Rapid Response, Code, or fall): S; Patient developed chest pain. No cardiac history. Strong family history. She was T-wave abnormalities in the lateral leads V5 and V6, T-wave inversions. She was anemic with a hemoglobin of 7.1. Postop gynecological surgery with no visible bleeding overnight, more anemic today. CT is performed with results pending. Hypotensive overnight with increased pressures today. Exam: VSS NAD, fluent speech. Lungs clear Heart is regular No leg edema ECG reveals NSR, T-wave inversions V5 and 6. Plan: -notify Dr. Cordova. -aspirin, stat echo. -1 unit of blood -serial troponins Barrett Ruiz MD 09:32
--- NOTE | 2023-11-18 09:33 | PC.NURSE ---
@[address] and stated she had chest pain 09/06. Pt ststes pain does not radiate. I put on 2L via nasal cannula, and took vitals @ 0912 (see chart). I ordered a STAT EKG and called DR. Shah two times but went straight to voice mail. I alerted the hospitalist Dr Ruiz @0952. He read the EKG and told me to give 2mg IV DILAUDID @0922. Dr. Ruiz ordered troponin draw, 1 unit of blood, aspirin, telemetry, and echo. I tried to call Dr. Shah again @0964 but he was in surgery and got the message that Pt is having chest pain.
[2023-11-18] MEDS: ASPIRIN EC 81 MG TABLET PO (09:52)
[2023-11-18 10:06] LABS: Hemoglobin 7.1 g/dL (12.0-16.0)
[2023-11-18 10:14] LABS: Hematocrit 20.9 % (36-46)
[2023-11-18 10:22] LABS: Troponin I 0.092 ng/mL (0.01-0.034)
--- NOTE | 2023-11-18 10:39 | P.PN_ITS ---
Subjective Subjective Date Patient Seen: 11/18/23 Time Patient Seen: 09:50 Interval history: Notified patient's episode of chest pain associated with T-wave changes EKG and Dr. Misael Ruiz's recommendations with which I completely concur. Her repeat hemoglobin and hematocrit are pending but given her anemia and the possibility of cardiac chest pain, will expedite transfusion of 2 units of packed red blood cells, and await results of cardiac enzyme studies. Abdominal binder applied and pelvic CT confirms hematoma formation in the cul-de-sac of [place] with intra-abdominal fluid suggesting some leakage of blood into the abdominal cavity. Exam Vital Signs (past 8 hours): - 11/18/23 03:11 11/18/23 04:27 11/18/23 08:00 Temperature 97.6 F 97.1 F L Pulse Rate 96 H 93 H 100 H Respiratory Rate 16 16 Blood Pressure 93/46 L 113/55 L 113/66 Pulse Oximetry 97 94 Oxygen Flow Rate 1.5 0 11/18/23 09:13 Temperature Pulse Rate 107 H Respiratory Rate 18 Blood Pressure 144/88 H Pulse Oximetry 97 Oxygen Flow Rate 2 Oxygen Delivery Method Nasal Cannula Oxygen Flow Rate 2 Narrative Exam Narrative: Exam unchanged from earlier this morning Objective Labs 11/18/23 09:58 Labs: Laboratory Results - last 24 hr 11/17/23 11/18/23 11/18/23 16:31 05:37 09:50 WBC 19.0 H 12.7 H RBC 3.47 L 2.47 L Hgb 10.4 L 7.5 L Hct 31.2 L 21.9 L MCV 90.0 88.7 MCH 30.0 30.3 MCHC 33.3 34.2 RDW 13.1 12.8 Plt Count 397 269 Neut % (Auto) 92.9 H 69.0 D Lymph % (Auto) 4.3 L 18.4 L [place] % (Auto) 2.3 L 12.3 Eos % (Auto) 0.4 L 0.1 L Baso % (Auto) 0.1 0.2 Neut # (Auto) 57702 H 8800 H Lymph # (Auto) 800 L 2300 [place] # (Auto) 400 1600 H Eos # (Auto) 100 0 Baso # (Auto) 0 0 Troponin I 0.092 H Crossmatch See Detail 11/18/23 09:58 WBC RBC Hgb 7.1 L Hct 20.9 L* MCV MCH MCHC RDW Plt Count Neut % (Auto) Lymph % (Auto) [place] % (Auto) Eos % (Auto) Baso % (Auto) Neut # (Auto) Lymph # (Auto) [place] # (Auto) Eos # (Auto) Baso # (Auto) Troponin I Crossmatch [facility] Medical History (Updated 11/18/23 @ 10:43 by Good Shah MD) Fibromyalgia Former smoker, stopped smoking in distant past Chronic interstitial cystitis Ovarian cyst (1981) Frequent UTI (1991) Squamous cell carcinoma of head and neck (2014) Stress headaches History of heavy periods (1968) Painful menstrual periods (1968) Tinnitus (2015) Plantar warts (1974) Rosacea (~1989) Hearing loss (2015) 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) Surgical History Anesthesia Status post urological surgery (2012) Status post hysterectomy (1993) Family History Father Hypertension Alcoholism Throat cancer Diabetes mellitus Mother Heart disease Hypertension Emphysema of lung Cancer Son Pneumonia Heroin addiction Social History household members: spouse and children Smoking Status: Former smoker alcohol intake: current Assessment & Plan Assessment and plan (1) Acute postoperative anemia due to greater than expected blood loss: Status: Acute (2) Chest pain: Qualifiers: Chest pain type: unspecified Qualified Code(s): R07.9 - Chest pain, unspecified Status: Acute Plan Will initiate transfusion 2 units of packed red blood cells fernanda and continue close monitoring for continued postop blood loss. Troponin pending but will plan to co-manage with hospitalist team and/or the patient's primary care provider as the nature/etiology of her chest pain and cardiac status become clearer. Time-Based Coding :: [TOTAL MINUTES] spent with patient and on the chart (including review of chart, obtaining history, exam, reviewing outside data, placing orders, documenting exam and treatment plan, and counseling patient) on [DATE].
--- NOTE | 2023-11-18 14:07 | CM.DANOTE ---
DCP Assessment Note: Pt is a 68yo female, resident of [place], is admitted for female genital prolapse, s/p laparoscopy. Pt lives in a house with her , Raymond. Pt's Primary Care Provider is Dr. Jeff Neil and insurance is [employer] Reviewed chart and team rounds for pt's medical status and initial discharge needs. Per rounds, pt was experiencing chest pain and is getting more medical workup related to this. DCP met w/patient at bedside; introduced self and role. Patient was found in bed, alert and oriented, cooperative with assessment. Pt confirmed living situation and good support in . 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 Pt declined any referrals to the community, including home health. No discharge needs identified at this time. Plan: Anticipating discharge home with spouse when medically stable. CM team will follow closely for coordination of discharge plans. [place] Discharge Planning/Care Management CM Discharge Assessment Start: 11/18/23 14:03 Freq: Status: Active Protocol: Document 11/18/23 14:05 MW (Rec: 11/18/23 14:07 [id number]) Discharge Planning Assessment Assigned [employer] Supervisor SAÚL Granda DPOA/Assigned Designee Name Raymond Benitez, Spouse Contact Information [phone] Advance Directives? No History Provided By Patient,Medical Record Has Patient been admitted in last 30 No days? Prior Living Arrangements House Household Members spouse Type of transporation used prior to Drives own vehicle admit Independent with ADL's Yes Is patient alert and oriented? 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 Barriers to Discharge No Discharge Plan Home Transportation Arrangement Spouse Referrals Initiated None needed Whiteboard Updated in Patient Room with Yes name and ext. # of [employer] Department Supervisor Comment [phone] Please Provide Date Initial DC 11/18/23 Assessment Was Performed Next Review Type Continued Stay Review
[2023-11-18 14:52] LABS: Troponin I 0.126 ng/mL (0.01-0.034)
[2023-11-18 16:44] LABS: Troponin I 0.113 ng/mL (0.01-0.034)
--- NOTE | 2023-11-18 18:07 | P.PN_ITS ---
Subjective Subjective Date Patient Seen: 11/18/23 Time Patient Seen: 17:09 Interval history: Patient has received 2 units packed red blood cells and is pending H&H following transfusion. Patient feels much better as far as her overall sense of well- being but also her pain is markedly improved and she is ambulating. She has been able to void without difficulty and is passing gas. She has no nausea and vomiting and no significant vaginal bleeding at this time. Exam Vital Signs (past 8 hours): - 11/18/23 11:15 11/18/23 11:31 11/18/23 12:00 Temperature 96.7 F L 96.8 F L 96.8 F L Pulse Rate 96 H 94 H 94 H Respiratory Rate 18 18 18 Blood Pressure 98/57 L 93/62 108/60 Pulse Oximetry 95 Oxygen Flow Rate 2 11/18/23 13:33 11/18/23 14:10 11/18/23 14:29 Temperature 96.9 F L 96.8 F L 96.9 F L Pulse Rate 93 H 94 H 99 H Respiratory Rate 18 18 18 Blood Pressure 108/60 114/60 128/77 Pulse Oximetry Oxygen Flow Rate 11/18/23 16:00 11/18/23 16:55 Temperature 98.0 F 97.5 F L Pulse Rate 92 H 94 H Respiratory Rate 16 18 Blood Pressure 120/75 129/77 Pulse Oximetry 98 Oxygen Flow Rate Oxygen Delivery Method Nasal Cannula Oxygen Flow Rate 2 Narrative Exam Narrative: Abdomen is less distended and bowel sounds are more active than earlier today. Otherwise her exam is essentially unchanged. Objective Labs 11/19/23 05:43 Labs: Laboratory Results - last 24 hr 11/18/23 11/18/23 11/18/23 05:37 09:50 09:58 WBC 12.7 H RBC 2.47 L Hgb 7.5 L 7.1 L Hct 21.9 L 20.9 L* MCV 88.7 MCH 30.3 MCHC 34.2 RDW 12.8 Plt Count 269 Neut % (Auto) 69.0 D Lymph % (Auto) 18.4 L [place] % (Auto) 12.3 Eos % (Auto) 0.1 L Baso % (Auto) 0.2 Neut # (Auto) 8800 H Lymph # (Auto) 2300 [place] # (Auto) 1600 H Eos # (Auto) 0 Baso # (Auto) 0 Troponin I 0.092 H Blood Type O Positive Antibody Screen Negative Crossmatch See Detail 11/18/23 11/18/23 13:58 16:13 WBC RBC Hgb Hct MCV MCH MCHC RDW Plt Count Neut % (Auto) Lymph % (Auto) [place] % (Auto) Eos % (Auto) Baso % (Auto) Neut # (Auto) Lymph # (Auto) [place] # (Auto) Eos # (Auto) Baso # (Auto) Troponin I 0.126 H* 0.113 H Blood Type Antibody Screen Crossmatch [facility] Medical History (Updated 11/18/23 @ 18:11 by Good Shah MD) Fibromyalgia Former smoker, stopped smoking in distant past Chronic interstitial cystitis Ovarian cyst (1981) Frequent UTI (1991) Squamous cell carcinoma of head and neck (2014) Stress headaches History of heavy periods (1968) Painful menstrual periods (1968) Tinnitus (2015) Plantar warts (1974) Rosacea (~1989) Hearing loss (2015) 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) Surgical History Anesthesia Status post urological surgery (2012) Status post hysterectomy (1993) Family History Father Hypertension Alcoholism Throat cancer Diabetes mellitus Mother Heart disease Hypertension Emphysema of lung Cancer Son Pneumonia Heroin addiction Social History household members: spouse Smoking Status: Former smoker alcohol intake: current Assessment & Plan Assessment and plan (1) Elevated troponin: Status: Acute (2) Acute postoperative anemia due to greater than expected blood loss: Status: Acute Plan Will continue to coordinate with hospitalist/primary care team regarding her elevated troponin and any further evaluation/management decisions in that area. Repeat hemoglobin and hematocrit this evening and again in the morning. Will permit the patient to eat dinner tonight but placed NPO after midnight in case surgical exploration tomorrow is indicated. If patient's counts remain stable overnight she would meet criteria for discharge from a gynecologic perspective but will consult with hospitalist/primary care team on a final decision regarding discharge Time-Based Coding :: [TOTAL MINUTES] spent with patient and on the chart (including review of chart, obtaining history, exam, reviewing outside data, placing orders, documenting exam and treatment plan, and counseling patient) on [DATE].
[2023-11-18 18:36] LABS: Add Manual Diff / Slide Review NO; Basophils Absolute Auto 0 /uL (0-100); Basophils Percent Auto 0.3 % (0-2); Eosinophils Absolute Auto 100 /uL (0-450); Eosinophils Percent Auto 0.7 % (2-4); Hematocrit 30.3 % (36-46); Hemoglobin 10.3 g/dL (12.0-16.0); Lymphocytes Absolute Auto 2400 /uL (1100-4500); Lymphocytes Percent Auto 17.7 % (25-40); Mean Corpuscular HGB Conc 33.9 % (30-36); Mean Corpuscular Hemoglobin 30.8 PG (26-34); Monocytes Absolute Auto 1600 /uL (0-900); Monocytes Percent Auto 11.8 % (3-14); Neutrophils Absolute Auto 9200 /uL (1500-7000); Neutrophils Percent Auto 69.5 % (50-75); Platelet Count 199 X10^3/uL (150-400); Red Blood Cell Count 3.33 X10^6/uL (4.0-5.2); Red Cell Distribution Width 13.4 % (11.6-14.8); White Blood Cell Count 13.3 X10^3/uL (4.5-11.0)
[2023-11-18] MEDS: TRAZODONE 50 MG TABLET 100 MG PO (20:05)
[2023-11-18 22:05] LABS: Troponin I 0.089 ng/mL (0.01-0.034)
[2023-11-18 22:29] LABS: Hematocrit 25.4 % (36-46); Hemoglobin 8.7 g/dL (12.0-16.0)
[2023-11-19] VITALS: BP 100/46; PULSE 89; RESP 16; TEMP 36.6; O2SAT 93
[2023-11-19] MEDS: HYDROMORPHONE 2 MG INJ IV (02:41)
[2023-11-19 02:48] VITALS: BP 140/69; PULSE 89; RESP 18
[2023-11-19 04:00] VITALS: BP 105/50; PULSE 81; RESP 15; TEMP 36.9; O2SAT 92
[2023-11-19 06:15] LABS: Add Manual Diff / Slide Review NO; Basophils Absolute Auto 100 /uL (0-100); Basophils Percent Auto 0.6 % (0-2); Eosinophils Absolute Auto 200 /uL (0-450); Eosinophils Percent Auto 1.7 % (2-4); Hematocrit 28.6 % (36-46); Hemoglobin 9.8 g/dL (12.0-16.0); Lymphocytes Absolute Auto 2200 /uL (1100-4500); Lymphocytes Percent Auto 19.6 % (25-40); Mean Corpuscular HGB Conc 34.4 % (30-36); Mean Corpuscular Hemoglobin 30.8 PG (26-34); Mean Corpuscular Volume 89.6 fL (80-100); Monocytes Absolute Auto 1300 /uL (0-900); Monocytes Percent Auto 11.8 % (3-14); Neutrophils Absolute Auto 7400 /uL (1500-7000); Neutrophils Percent Auto 66.3 % (50-75); Platelet Count 204 X10^3/uL (150-400); Red Blood Cell Count 3.19 X10^6/uL (4.0-5.2); Red Cell Distribution Width 13.4 % (11.6-14.8); White Blood Cell Count 11.2 X10^3/uL (4.5-11.0)
[2023-11-19] MEDS: HYDROMORPHONE 2 MG TABLET 4 MG PO ×2 (06:15→09:18)
[2023-11-19 06:20] VITALS: BP 129/60
[2023-11-19] MEDS: IBUPROFEN 600 MG TABLET PO (06:22)
[2023-11-19] MEDS: ACETAMINOPHEN 325 MG TABLET 650 MG PO (06:26)
[2023-11-19 08:00] VITALS: BP 120/55; PULSE 87; RESP 16; TEMP 36.2; O2SAT 99
--- NOTE | 2023-11-19 08:05 | PC.NURSE ---
Addendum entered by Jude Castellanos R.N. 11/19/23 13:12: Pt given d/c instructions, Gary LUKAS to take out IV per protocol and escort Pt via w/c to private car. Original Note: Pt restful, A&O offers no overt c/o although resting supine left with wash cloth over face. BT's Hypo active. Trop 0.089 this a.m. down from 0.126 H/H 9.8/28.6 up form 7.2/20.6. Pt vebal and folllowing commands.
[2023-11-19] MEDS: ASPIRIN EC 81 MG TABLET PO (09:18)
[2023-11-19] MEDS: DOCUSATE 100 MG CAPSULE 200 MG PO (09:19)
--- NOTE | 2023-11-19 09:31 | PM.PN.1 ---
Subjective Subjective Date Patient Seen: 11/19/23 Time Patient Seen: 09:31 Exam Vital Signs (past 8 hours): - 11/19/23 02:48 11/19/23 04:00 11/19/23 06:20 Temperature 98.4 F Pulse Rate 89 81 Respiratory Rate 18 15 Blood Pressure 140/69 105/50 L 129/60 Pulse Oximetry 92 Oxygen Flow Rate 0 11/19/23 08:00 Temperature 97.2 F L Pulse Rate 87 Respiratory Rate 16 Blood Pressure 120/55 L Pulse Oximetry 99 Oxygen Flow Rate Oxygen Delivery Method Room Air Oxygen Flow Rate 0 Const General: cooperative and comfortable Nutritional Appearance: average body habitus Orientation: alert and oriented x3 HENMT Head: normal to inspection, atraumatic and abrasion Ears: hearing grossly normal bilaterally Face and sinus: face symmetric Eyes General: appearance normal, both eyes and all related structures Conjunctivae: conjunctivae normal Sclera: sclerae normal EOM: EOM intact bilaterally Neck Neck: normal visual inspection Resp Effort & Inspection: normal respiratory effort and able to speak in complete sentences Auscultation: clear to auscultation bilaterally Cardio Rate: regular rate Rhythm: regular rhythm Heart Sounds: S1 normal, S2 normal and no murmurs GI Inspection: normal to inspection and incision (Surgical dressing clean and dry) Palpation: soft, no hepatosplenomegaly and tender (Mild, diffuse postsurgical tenderness) Auscultation: normal bowel sounds External Female Exam: other (No significant bleeding noted) Extrem General: no calf tenderness Psych Appearance: grossly normal Mental Status: mental status grossly normal Speech and Movement: speech and movement normal Mood: congruent mood Affect: normal affect Attitude: cooperative Thought Process: normal Thought Content: normal Judgment: judgment good Objective Labs 11/19/23 05:43 Labs: Laboratory Results - last 24 hr 11/18/23 11/18/23 11/18/23 09:50 09:58 13:58 WBC RBC Hgb 7.1 L Hct 20.9 L* MCV MCH MCHC RDW Plt Count Neut % (Auto) Lymph % (Auto) [place] % (Auto) Eos % (Auto) Baso % (Auto) Neut # (Auto) Lymph # (Auto) [place] # (Auto) Eos # (Auto) Baso # (Auto) Troponin I 0.092 H 0.126 H* Blood Type O Positive Antibody Screen Negative Crossmatch See Detail 11/18/23 11/18/23 11/18/23 16:13 18:24 21:36 WBC 13.3 H RBC 3.33 L Hgb 10.3 L 8.7 L Hct 30.3 L 25.4 L MCV 91.0 MCH 30.8 MCHC 33.9 RDW 13.4 Plt Count 199 Neut % (Auto) 69.5 Lymph % (Auto) 17.7 L [place] % (Auto) 11.8 Eos % (Auto) 0.7 L Baso % (Auto) 0.3 Neut # (Auto) 9200 H Lymph # (Auto) 2400 [place] # (Auto) 1600 H Eos # (Auto) 100 Baso # (Auto) 0 Troponin I 0.113 H 0.089 H Blood Type Antibody Screen Crossmatch 11/19/23 05:43 WBC 11.2 H RBC 3.19 L Hgb 9.8 L Hct 28.6 L MCV 89.6 MCH 30.8 MCHC 34.4 RDW 13.4 Plt Count 204 Neut % (Auto) 66.3 Lymph % (Auto) 19.6 L [place] % (Auto) 11.8 Eos % (Auto) 1.7 L Baso % (Auto) 0.6 Neut # (Auto) 7400 H Lymph # (Auto) 2200 [place] # (Auto) 1300 H Eos # (Auto) 200 Baso # (Auto) 100 Troponin I Blood Type Antibody Screen Crossmatch [facility] Medical History (Updated 11/18/23 @ 18:11 by Good Shah MD) Fibromyalgia Former smoker, stopped smoking in distant past Chronic interstitial cystitis Ovarian cyst (1981) Frequent UTI (1991) Squamous cell carcinoma of head and neck (2014) Stress headaches History of heavy periods (1968) Painful menstrual periods (1968) Tinnitus (2015) Plantar warts (1974) Rosacea (~1989) Hearing loss (2015) 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) Surgical History Anesthesia Status post urological surgery (2012) Status post hysterectomy (1993) Family History Father Hypertension Alcoholism Throat cancer Diabetes mellitus Mother Heart disease Hypertension Emphysema of lung Cancer Son Pneumonia Heroin addiction Social History household members: spouse Smoking Status: Former smoker alcohol intake: current Assessment & Plan Assessment and plan (1) Acute postoperative anemia due to greater than expected blood loss: Status: Acute (2) Elevated troponin: Status: Acute Plan Patient's clinical status continues to improve dramatically and her H&H increased overnight following transfusion of 2 units packed red blood cells. She is ready for discharge from a surgical perspective but will ask Dr. Sriram Cordova to evaluate patient prior to discharge for possible further evaluation of elevated troponins and follow-up planned for evaluation of cardiac status as an outpatient. Once I have his input, will discharge the patient later this morning. Time-Based Coding :: [TOTAL MINUTES] spent with patient and on the chart (including review of chart, obtaining history, exam, reviewing outside data, placing orders, documenting exam and treatment plan, and counseling patient) on [DATE].
--- NOTE | 2023-11-19 11:10 | EKG_ITS ---
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
--- NOTE | 2023-11-19 11:39 | P.PN_ITS ---
Subjective Subjective Date Patient Seen: 11/19/23 Time Patient Seen: 11:40 Interval history: Was asked to see by Dr. Shah for evaluation chest pain from yesterday. Patient feeling great this morning. Moving around the room without issue. He has had no further chest pain. Patient feels like she has had some chest pain intermittently for the last year. Has not really told anybody anything. Not sure if it feels completely like it did yesterday. EKG yesterday showed some lateral ST changes inversions there maybe slightly improved today but still present with inversions but seem more flat today. No other changes. Troponin is improving. Patient has not had a history of coronary artery disease Exam Vital Signs (past 8 hours): - 11/19/23 04:00 11/19/23 06:20 11/19/23 08:00 Temperature 98.4 F 97.2 F L Pulse Rate 81 87 Respiratory Rate 15 16 Blood Pressure 105/50 L 129/60 120/55 L Pulse Oximetry 92 99 Oxygen Flow Rate 0 Oxygen Delivery Method Room Air Oxygen Flow Rate 0 Narrative Exam Narrative: Alert female smiling interactive in no acute distress Lungs are clear heart is regular rate and rhythm Objective Labs 11/19/23 05:43 Labs: Laboratory Results - last 24 hr 11/18/23 11/18/23 11/18/23 09:50 13:58 16:13 WBC RBC Hgb Hct MCV MCH MCHC RDW Plt Count Neut % (Auto) Lymph % (Auto) [place] % (Auto) Eos % (Auto) Baso % (Auto) Neut # (Auto) Lymph # (Auto) [place] # (Auto) Eos # (Auto) Baso # (Auto) Troponin I 0.126 H* 0.113 H Blood Type O Positive Antibody Screen Negative Crossmatch See Detail 11/18/23 11/18/23 11/19/23 18:24 21:36 05:43 WBC 13.3 H 11.2 H RBC 3.33 L 3.19 L Hgb 10.3 L 8.7 L 9.8 L Hct 30.3 L 25.4 L 28.6 L MCV 91.0 89.6 MCH 30.8 30.8 MCHC 33.9 34.4 RDW 13.4 13.4 Plt Count 199 204 Neut % (Auto) 69.5 66.3 Lymph % (Auto) 17.7 L 19.6 L [place] % (Auto) 11.8 11.8 Eos % (Auto) 0.7 L 1.7 L Baso % (Auto) 0.3 0.6 Neut # (Auto) 9200 H 7400 H Lymph # (Auto) 2400 2200 [place] # (Auto) 1600 H 1300 H Eos # (Auto) 100 200 Baso # (Auto) 0 100 Troponin I 0.089 H Blood Type Antibody Screen Crossmatch [facility] Medical History (Updated 11/18/23 @ 18:11 by Good Shah MD) Fibromyalgia Former smoker, stopped smoking in distant past Chronic interstitial cystitis Ovarian cyst (1981) Frequent UTI (1991) Squamous cell carcinoma of head and neck (2014) Stress headaches History of heavy periods (1968) Painful menstrual periods (1968) Tinnitus (2015) Plantar warts (1974) Rosacea (~1989) Hearing loss (2015) 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) Surgical History Anesthesia Status post urological surgery (2012) Status post hysterectomy (1993) Family History Father Hypertension Alcoholism Throat cancer Diabetes mellitus Mother Heart disease Hypertension Emphysema of lung Cancer Son Pneumonia Heroin addiction Social History household members: spouse Smoking Status: Former smoker alcohol intake: current Assessment & Plan Assessment & Plan narrative: Chest pain. Patient with some mild EKG changes and troponin elevation in the face of pretty significant anemia and recent surgery. I suspect this is more demand ischemia but given the troponin elevation and EKG changes she clearly needs further workup. Does have a family history of MIs. Patient already takes an aspirin a day. Interestingly she has been having a year of chest pain and it is unclear whether that really is cardiac or not given her history which sometimes is just when she lays down. But no other changes. We discussed with her that we will start low-dose metoprolol. Blood pressure is pretty low and I do not want to impact that in any other way. Hopefully she can tolerate it we discussed concerning signs and symptoms she will discontinue she has any issues. Will continue her aspirin which he takes every day. Will add nitro we discussed use. Shows any chest pain she is returned. Otherwise he will need a probably chemical nuclear med treadmill with her risk factors hopefully in the next 2 weeks. Patient is comfortable with that will call if change. Discussed with Dr. Shah. 45 minutes spent with chart review nursing patient dictations order Time-Based Coding :: [TOTAL MINUTES] spent with patient and on the chart (including review of chart, obtaining history, exam, reviewing outside data, placing orders, documenting exam and treatment plan, and counseling patient) on [DATE].
--- NOTE | 2023-11-19 11:51 | CM.DPC ---
DCP Discharge Home Per MD and OBGYN, pt making improvements although remains low bp and recommendation of outpt Nuc Stress Test in the next couple weeks. Pt likely stable for d/c home today with outpt f/u and close monitoring. Plan: Patient to d/c home today via spouse POV and close outpt f/u and stress test and no further SW needs at this time. SAÚL Wang
--- NOTE | 2023-11-19 14:15 | PC.NURSE ---
PT OFFERED PAIN AND NAUSEA MEDS, DECLINED AT THIS TIME. IV REMOVED AND WHEELED TO EXIT BY RECORD PRODUCER
--- NOTE | 2023-11-21 11:35 | P.DS_ITS ---
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 Jeff Neil regarding vaginal prolapse. She has a 68-year-old , LMP in 1991 at which time she had a supracervical hysterectomy performed with removal of 1 of her ovaries. She has had no bleeding since that time and clinically went through menopause at a round age 51-52. Menarche occurred at age 16 and she had regular predictable periods throughout her reproductive life but they were always very heavy. Patient has had 2 spontaneous vaginal births and her 3rd delivery was by . Her largest vaginal was her 1st and her son was born with a weight of over 11 lb. She is noted progressive vaginal bulging the last 6 months or so and is also noted at the same time some increased difficulty voiding especially when the prolapse is prominent. Patient's history is notable for interstitial cystitis diagnosed in 1989 and she had a [employer] stimulator placed. Unfortunately the battery after 7 years and she has been told by a urologist in area that the battery can not be replaced. She has not sought a 2nd opinion for possible for placement of battery or placed went of the generator unit. Review of systems is also notable for significant stress urinary incontinence and urinary frequency and urge associated with her interstitial cystitis. Trial of Elmiron was not beneficial. She was originally fitted with a vaginal pessary which provided reasonably good support but the patient was highly satisfied with the use of the pessary and wishes to instead to pursue surgical correction of her vault prolapse, cystocele, and stress urinary incontinence. After consideration of all options she has opted for performance of sacral spinous ligament fixation of the vaginal vault, anterior colporrhaphy, and placement of mid urethral sling with cystoscopy. She presents today for her scheduled surgery. 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 Details of the procedure well summarized on my operative note of that date. The patient experienced significant pain on the afternoon of her surgery and therefore the vaginal pack was taken out earlier than planned. Removing the pack improved her pain but did not resolve it and subsequent evaluation prompted by lower H&H values than expected along with her pain symptoms, prompted CT of the pelvis with and without contrast on the 1st day postop. That revealed a pelvic hematoma and some intra-abdominal fluid which is thought to be hemorrhagic. A dose TXA combined with placement of an abdominal binder in association with transfusion of 2 units of packed red blood cells, resulted in stabilization and increase of her postop H&H. She improved dramatically, is ambulating independently, tolerating regular diet, and her pain is well relieved with oral pain medications. At the time of her postoperative CT scan, she experienced chest pain and ECG revealed T-wave changes which prompted troponin levels. Troponin levels were elevated both initially and subsequently but peaked and began to decline on the 2nd postoperative day. Hospitalist and primary care consults were obtained and plan for follow- up/subsequent outpatient evaluation will be initiated. She will be discharged at this time to home in an afebrile normotensive condition after counseling regarding precautionary symptoms, limitations of activity, medications, and plans for follow-up which will be in 2 weeks. Medications at discharge will include resumption of all preadmission medications, daily 81 mg aspirin, hydrocodone 4 mg every 4-6 hours as needed for pain, dispense 20 with no refills, and Cipro 500 mg p.o. b.i.d. x5 days for UTI prophylaxis following catheterization. Status at Discharge Cognitive/behavioral status at discharge: oriented Functional status at discharge: independent ambulation Overall status at discharge: patient is progressing back to baseline Exam Vital Signs (past 8 hours): Oxygen Delivery Method Room Air Oxygen Flow Rate 0 Const General: cooperative and comfortable Nutritional Appearance: average body habitus Orientation: alert and oriented x3 HENMT Head: normal to inspection, atraumatic and abrasion Ears: hearing grossly normal bilaterally Face and sinus: face symmetric Eyes General: appearance normal, both eyes and all related structures Conjunctivae: conjunctivae normal Sclera: sclerae normal EOM: EOM intact bilaterally Neck Neck: normal visual inspection Resp Effort & Inspection: normal respiratory effort and able to speak in complete sentences Auscultation: clear to auscultation bilaterally Cardio Rate: regular rate Rhythm: regular rhythm Heart Sounds: S1 normal, S2 normal and no murmurs GI Inspection: normal to inspection and incision (Surgical dressings clean and dry) Palpation: soft, no hepatosplenomegaly and tender (Mild, diffuse postsurgical tenderness) Auscultation: normal bowel sounds External Female Exam: other (No significant bleeding noted) Extrem General: no calf tenderness Psych Appearance: grossly normal Mental Status: mental status grossly normal Speech and Movement: speech and movement normal Mood: congruent mood Affect: normal affect Attitude: cooperative Thought Process: normal Thought Content: normal Judgment: judgment good Objective Labs 11/19/23 05:43 [facility] Medical History (Updated 11/18/23 @ 18:11 by Good Shah MD) Fibromyalgia Former smoker, stopped smoking in distant past Chronic interstitial cystitis Ovarian cyst (1981) Frequent UTI (1991) Squamous cell carcinoma of head and neck (2014) Stress headaches History of heavy periods (1968) Painful menstrual periods (1968) Tinnitus (2015) Plantar warts (1974) Rosacea (~1989) Hearing loss (2015) 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) Surgical History Anesthesia Status post urological surgery (2012) Status post hysterectomy (1993) Family History Father Hypertension Alcoholism Throat cancer Diabetes mellitus Mother Heart disease Hypertension Emphysema of lung Cancer Son Pneumonia Heroin addiction Social History household members: spouse Smoking Status: Former smoker alcohol intake: current Discharge Assessment & Plan Assessment and Plan Assessment: Cystocele, stage II Vaginal vault prolapse following hysterectomy, 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 Discharge Plan Discharge Plan Patient Disposition: Home Provider Discharge Comment: Please review the written instructions you received when you were discharged from the hospital. Your follow-up appointment is scheduled for 2 weeks after your surgery and I look forward to seeing you then. If however in the meanwhile you have any issues, concerns, or questions, please contact the office either by phone at [phone], or via the patient portal. Discharge orders & Medications Prescriptions: New ciprofloxacin HCl [Cipro] 500 mg tablet 500 mg PO BID 5 Days Qty: 10 0RF hydromorphone 4 mg tablet 4 mg PO Q6H Qty: 20 0RF nitroglycerin [Nitrostat] 0.4 mg Tablet, Sublingual 0.4 mg sublingual [id number] PRN (Reason: Chest Pain) Qty: 30 0RF metoprolol tartrate 25 mg Tablet 12.5 mg PO BID Qty: 60 0RF Continued omeprazole 20 mg Capsule,Delayed Release(Dr/Ec) 20 mg PO DAILY Qty: 0 citalopram 10 mg tablet 15 mg PO DAILY Qty: 135 3RF trazodone 100 mg tablet 100 - 150 mg PO BEDTIME Qty: 100 1RF estradiol 1 mg tablet 1 mg PO DAILY Qty: 90 0RF hydromorphone 4 mg tablet 4 mg PO 5XD PRN (Reason: pain) Qty: 140 0RF multivitamin Tablet 1 tab PO DAILY Vitamin B 1 tab PO DAILY Vitamin D3 1 cap PO DAILY Stool Softener 2 cap PO BID Follow up/Referrals: Jeff Neil MD [Primary Care Provider] - 3-5 Days (Patient to call for appointment on Tuesday) Good Shah MD [Physician] - Discharge Health Status Multidrug resistant organism: No MDRO Diet/Activity/Treatments Diet: Diet as Tolerated Activity: As tolerated Other treatments: [id number] Tylenol and/or ibuprofen may be used for additional pain relief. Lugv-bda-jcnttdm stool softeners and/or MiraLax may be used as needed for constipation. Skin/Wound/Dressing Care Report to your healthcare provider any signs of infection, such as:: chills, fever Dressing: Dressings may be removed on the morning of 11/20/2023 Visit Report/Discharge Packet Instructions: DI for Vaginal Prolapse, DI for Prescription Opioid Use Discharge Data Primary Care Provider: Jeff Neil
== END 2023-11-19 14:17 | disposition home or self-care (01) | DRG 748 ==
LOC: OR 11:13 → AC 11:13
PROVIDERS: Hospitalist; Admitting Provider Obstetrics & Gynecology; PCP Family Medicine; Referring Provider Obstetrics & Gynecology; Visit Provider Obstetrics & Gynecology
PROC: 0JQC0ZZ Repair Pelvic Region Subcutaneous Tissue and Fascia, Open Approach (ICD-10-PCS; principal; 2023-11-17 09:45)
PROC: 0TSD0ZZ Reposition Urethra, Open Approach (ICD-10-PCS; 2023-11-17 09:45)
DX: N81.10 Cystocele, unspecified (principal); D62 Acute posthemorrhagic anemia; I24.89 Other forms of acute ischemic heart disease; N39.3 Stress incontinence (female) (male); N95.2 Postmenopausal atrophic vaginitis; F11.90 Opioid use, unspecified, uncomplicated; R94.31 Abnormal electrocardiogram [ECG] [EKG]; R07.9 Chest pain, unspecified; R79.89 Other specified abnormal findings of blood chemistry; Z82.49 Family history of ischemic heart disease and other diseases of the circulatory system; Z90.710 Acquired absence of both cervix and uterus; Z87.891 Personal history of nicotine dependence
CPT/HCPCS: 36415; 36430; 72170; 74177; 84484; 85014; 85018; 85025; 86850; 86900; 86901; 93005; 93306; P9016; C1771; J0330; J0690; J1100; J1170; J2405; J2704; J3010; Q9967

== ENCOUNTER → 2023-11-23 16:49 | Outpatient (CLI) | payer OTHER, SELFPAY ==
[2023-11-17 14:06] VITALS: BMI 38.7
--- NOTE | 2023-11-23 16:53 | EKG_ITS ---
[address] [address] Test Date: 2023-11-23 Pat Name: Oliver Shay Department: [facility] Room: Gender: Female Porter Sample Case: GUILLE : 1955 Requested By: Order Number: [id number] Reading MD: Demario Estrada MD Measurements Intervals Kiester Rate: 88 P: MN: 124 QRS: 1 QRSD: 80 T: -2 QT: 354 QTc: 428 Interpretive Statements Normal sinus rhythm Electronically Signed On 11-24-2023 8:26:20 PDT by Demario Estrada MD
[2023-11-23 17:09] LABS: Add Manual Diff / Slide Review NO; Basophils Absolute Auto 0 /uL (0-100); Basophils Percent Auto 0.4 % (0-2); Eosinophils Absolute Auto 200 /uL (0-450); Eosinophils Percent Auto 1.8 % (2-4); Hematocrit 31.8 % (36-46); Hemoglobin 10.8 g/dL (12.0-16.0); Lymphocytes Absolute Auto 1200 /uL (1100-4500); Lymphocytes Percent Auto 10.5 % (25-40); Mean Corpuscular HGB Conc 33.8 % (30-36); Mean Corpuscular Hemoglobin 30.7 PG (26-34); Mean Corpuscular Volume 90.8 fL (80-100); Monocytes Absolute Auto 1400 /uL (0-900); Monocytes Percent Auto 12.6 % (3-14); Neutrophils Absolute Auto 8600 /uL (1500-7000); Neutrophils Percent Auto 74.7 % (50-75); Platelet Count 356 X10^3/uL (150-400); Red Cell Distribution Width 13.6 % (11.6-14.8); White Blood Cell Count 11.5 X10^3/uL (4.5-11.0)
[2023-11-23 17:20] LABS: D Dimer 6127 ng/ml (<500)
[2023-11-23 17:35] LABS: Troponin I 0.025 ng/mL (0.01-0.034)
== END ==
PROVIDERS: PCP Family Medicine; Referring Provider Family Medicine; Visit Provider Family Medicine
DX: R07.9 Chest pain, unspecified (principal); R79.89 Other specified abnormal findings of blood chemistry
CPT/HCPCS: 36415; 84484; 85025; 85379; 93005; 93010

== ENCOUNTER → 2024-08-09 14:28 | Outpatient (CLI) | payer OTHER, SELFPAY ==
[2023-11-17 14:06] VITALS: BMI 38.7
[2024-08-09 17:06] LABS: Appearance Urine UA CLEAR; Bilirubin Urine UA NEGATIVE (NEGATIVE); Color Urine UA YELLOW; Glucose Urine UA NEGATIVE (Negative); Ketones Urine UA NEGATIVE (NEGATIVE); Leukocyte Esterase Urine UA NEGATIVE (NEGATIVE); Nitrite Urine UA NEGATIVE (Negative); Occult Blood Urine UA NEGATIVE (Negative); Protein Urine UA NEGATIVE (Negative); Specific Gravity Urine UA 1.025 (1.000-1.035); Urobilinogen Urine UA 0.2 E.U./dL (0.2); pH Urine UA 5.5 (4.5-8.0)
[2024-08-09 17:29] LABS: Bacteria Urine None Seen; Culture Indicated Urine Cult Not Indicated; RBC Urine None Seen (0-5/HPF); Squamous Epithelial Cell Urine 1-5 /HPF (0-5/HPF); Urine Volume 10mL (spun); WBC Urine None Seen (0-5/HPF)
== END ==
PROVIDERS: PCP Family Medicine; Visit Provider Obstetrics & Gynecology Gynecology
DX: R32 Unspecified urinary incontinence (principal)
CPT/HCPCS: 81001

== ENCOUNTER → 2024-08-09 14:43 | Outpatient (CLI) | payer OTHER, SELFPAY ==
[2023-11-17 14:06] VITALS: BMI 38.7
[2024-08-09 15:27] LABS: Estimated Glomerular Filt Rate > 60 mL/min (>60)
== END ==
PROVIDERS: PCP Family Medicine; Referring Provider Family Medicine; Visit Provider Family Medicine
DX: R22.1 Localized swelling, mass and lump, neck (principal)
CPT/HCPCS: 36415; 81001; 82565

== ENCOUNTER → 2024-08-11 11:22 | Outpatient (CLI) | payer OTHER, SELFPAY ==
[2023-11-17 14:06] VITALS: BMI 38.7
--- NOTE | 2024-08-11 11:23 | DI.CT.S_ITS ---
PROCEDURE: CT SOFT TISSUE NECK W CON INDICATIONS: R side neck mass/pain, h/o oropharhyngeal SCC TECHNIQUE: After the administration of intravenous contrast, 3.0 mm axial sections acquired from the sella to the aortic arch. Additional oblique axial 3.0 mm sections acquired through the pharynx. 3 mm thick coronal and sagittal reformats were generated. For radiation dose reduction, the following was used: automated exposure control. COMPARISON: [facility], CT, CT SOFT TISSUE NECK WITH CONTRAST, 09/18/2020, 14:39. [facility], CT, CT SOFT TISSUE NECK WITHOUT CONTRAST, 09/16/2017, 10:04. [facility], CT, CT NECK SOFT TISSUE W CON, 05/03/2016, 13:03. [facility], CT, SOFT TISSUE NECK W CONTRAST, 06/11/2015, 9:31. FINDINGS: Image quality: Excellent. Lymph nodes: No enlarged lymph nodes seen throughout the neck. A few borderline prominent lymph nodes are seen, however, including within the left submandibular region. Vessels: Visualized vasculature appears patent. Apparent bilateral carotid endarterectomy change is seen. Incidental note is made of a common origin of the right brachiocephalic artery and the left common carotid artery (bovine type arch). This is considered to be a developmental variant of no clinical consequence. Neck spaces: At the marked area of clinical concern, no masses are seen. This areas seen near the carotid bifurcation region. The oropharynx, nasopharynx, and pharynx demonstrate no mucosal lesions. The vocal cords, false vocal cords, pyriform sinuses, epiglottis, vallecula, and tongue base all appear normal. Extramucosal spaces appear unremarkable. Glands: The parotid and submandibular glands appear normal. Thyroid gland demonstrates no significant abnormality. Miscellaneous: Visualized brain and orbits appear normal. Mild emphysematous changes can be seen at the lung apices. Superficial soft tissues appear normal. Bones: No suspicious bony lesions. There is focal right maxillary sinus mucosal thickening. Milder mucosal thickening is seen elsewhere within the paranasal sinuses. No abnormal fluid is seen within the mastoid air cells. Vcaw-xn-qxcnyglh lower cervical spine degenerative change can be seen. IMPRESSION: No masses are seen at the marked area of clinical concern. No masses or enlarged lymph nodes are seen elsewhere. Apparent bilateral carotid endarterectomy change. Please correlate with known patient history. Additional findings: Focal right maxillary sinus disease Einr-ca-oifwzyzd lower cervical spine degenerative change Mild pulmonary emphysematous changes Bowing type aortic branching pattern Dictated by: Tereso Persaud M.D. on 08/13/2024 at 15:27 Approved by: Tereso Persaud M.D. on 08/13/2024 at 15:31
[2024-08-11 11:45] LABS: Estimated Glomerular Filt Rate > 60 mL/min (>60)
== END ==
PROVIDERS: PCP Family Medicine; Referring Provider Family Medicine; Visit Provider Family Medicine
DX: J32.0 Chronic maxillary sinusitis (principal); M47.812 Spondylosis without myelopathy or radiculopathy, cervical region; R22.1 Localized swelling, mass and lump, neck; Z85.819 Personal history of malignant neoplasm of unspecified site of lip, oral cavity, and pharynx
CPT/HCPCS: 36415; 70491; 82565; Q9967